=== PATIENT | female | born 1955 | race Caucasian/White ===

== ENCOUNTER → 2017-08-11 | Outpatient (CLI) | payer BC ==
[~2017-08-11] MED LIST: ACET-1256 PO; ASPI81TA28 PO; CALC500C3 PO; LEVO100T48 PO; METO50TA16 PO; [UNRECOGNIZED DRUG - OTHER] PO
--- NOTE | 2017-08-12 15:09 | MAMMOGRAPHY REPORT ---
BILATERAL DIGITAL SCREENING MAMMOGRAM TOMOSYNTHESIS WITH CAD: 08/11/2017 CLINICAL HISTORY: Routine screening. Patient has no complaints. TECHNIQUE: Breast tomosynthesis in addition to standard 2D mammography was performed. Current study was also evaluated with a Computer Aided Detection (CAD) system. COMPARISON: Comparison is made to exams dated: 08/05/2016 mammogram, 07/31/2015 mammogram, 4 mammogram, 07/26/2013 mammogram, 07/20/2012 mammogram, and 07/15/2011 mammogram - [facility]. BREAST COMPOSITION: The tissue of both breasts is almost entirely fatty. FINDINGS: No suspicious mass, architectural distortion or cluster of microcalcifications is seen. IMPRESSION: ACR BI-RADS CATEGORY 1: NEGATIVE There is no mammographic evidence of malignancy. A 1 year screening mammogram is recommended. The pa tient will receive written notification of the results. Approximately 10% of breast cancers are not detected with mammography. A negative mammographic report should not delay biopsy if a clinically suggestive mass is present. Larissa marsh/nini:08/11/2017 15:47:09 Cat Dog Or Other Pet Groomer: Adelita GIBBS,R, M, [facility] letter sent: Normal 1/2 BI-RADS Code: ACR BI-RADS Category 1: Negative
== END | disposition home or self-care (01) ==
LOC: C.MAMM 09:37
PROVIDERS: ATTEND Obstetrics & Gynecology
DX: Z12.31 Encounter for screening mammogram for malignant neoplasm of breast (principal)

== ENCOUNTER 2017-09-16 23:40 | Emergency (ER) | payer BC ==
[~2017-09-16] VITALS: Ht 175.3 cm; Wt 97.3 kg
[2017-09-16 23:42] VITALS: TEMP 37.6; Ht 175.3 cm; Wt 97.3 kg
[2017-09-16] MEDS ORDERED: ACETAMINOPHEN 500 MG TAB PO STA (23:58)
--- NOTE | 2017-09-17 | EMERGENCY ROOM VISIT NOTE ---
History Report prepared by Dimitris: Herrera Garcia Under the Supervision of: Dr. Jhonathan Brice M.D. First contact with patient: 23:51 Chief Complaint: FLU LIKE SX Stated Complaint: FLU History of Present Illness The patient is a 61 year old female who presents to the Emergency Room with complaints of a worsening illness that started a couple weeks ago. She states that she has had a productive cough for a couple weeks, and today started having generalized achiness, fevers, chills, and a runny nose. The patient notes that she feels that her ears are blocked up. She states that she finished a Z-pack a few days ago. The patient adds that she took 500 mg Tylenol around an hour ago. She denies any loss of consciousness. The patient says that she has no history of lung disease, and she is a non-smoker. She states that she had a heart attack 5 years ago, and is on Metoprolol. The patient notes a family history of diabetes, but no personal history. The patient says that her currently has similar symptoms. Source of History: patient Onset: A couple weeks ago Position: other (global - illness) Quality: other ( sick as well) Timing: worsening Associated Symptoms: + fevers, + chills, + cough (productive), No LOC Note: Associated symptoms: Generalized achiness, runny nose. Ears blocked up. Review of Systems See HPI for pertinent positives & negatives. A total of 10 systems reviewed and were otherwise negative. Past Medical & Surgical Medical Problems: (1) Allergic rhinitis (2) Dyslipidemia (3) status post cardiac catheterization (4) status post colonoscopy (5) status post hysterectomy Family History Diabetes mellitus Social History Smoking Status: Never Smoker Alcohol Use: none Marital Status: Occupation Status: employed Current/Historical Medications Scheduled Aspirin (Aspirin Ec), 81 MG PO DAILY Calcium Carbonate (Tums), 1 CHW PO PRN Levothyroxine Sodium (Synthroid), 112 MCG PO DAILY Metoprolol Tartrate (Lopressor) (Lopressor), 50 MG PO BID Oseltamivir (Tamiflu), 75 MG PO BID Scheduled PRN Acetaminophen (Tylenol), 1,000 MG PO Q8 PRN for Pain Allergies Coded Allergies: Clindamycin (Verified Allergy, Intermediate, rash, 09/17/17) gmg Physical Exam Vital Signs Date Time Temp Pulse Resp B/P (MAP) Pulse Ox O2 Delivery O2 Flow Rate FiO2 09/17/17 01:11 91 14 96 09/17/17 01:00 137/78 09/17/17 01:00 89 09/17/17 00:51 88 20 92 09/17/17 00:36 87 21 91 09/17/17 00:34 Nasal Cannula 2.0 09/17/17 00:33 95 Nasal Cannula 2.0 09/17/17 00:31 124/63 09/17/17 00:30 88 Room Air 09/17/17 00:25 94 17 95 09/17/17 00:10 96 09/17/17 00:10 94 21 91 Room Air 09/17/17 00:03 133/66 09/16/17 23:42 37.6 94 20 131/69 94 Room Air Physical Exam GENERAL: Patient is well appearing and in minimal distress. HEENT: No acute trauma, normocephalic atraumatic, mucous membranes moist, no scleral icterus. Rhinorrhea bilaterally. NECK: No stridor, no adenopathy, no meningismus, trachea is midline. LUNGS: Oxygen saturation after walking alba was 97% on room air. No dyspnea. Clear to auscultation and equal bilaterally. No wheeze, no rhonchi. HEART: Regular rate and rhythm. No murmurs, rubs, gallops appreciated. ABDOMEN: Soft, nontender, bowel sounds positive, no masses appreciated, no peritonitis. BACK: No midline tenderness, no CVA tenderness EXTREMITIES: Normal motion all extremities, no cyanosis, no edema. NEUROLOGIC: Alert and oriented, no acute motor or sensory deficits, no focal weakness, cranial nerves grossly intact. SKIN: No rash, no jaundice, no diaphoresis. Medical Decision & Procedures ER Provider Diagnostic Interpretation: X ray results are stated below per my interpretation: Chest: 1 view: No infiltrate, no effusion, normal cardiac border. Laboratory Results Test 09/17/17 00:00 Influenza Type A Antigen POS for Influ A (NEG) Influenza Type B Antigen Neg for Influ B (NEG) Laboratory results as reviewed by me. Medications Administered Medications (Trade) Dose Ordered Sig/Adalberto Route Start Time Stop Time Status Last Admin Dose Admin Acetaminophen (Tylenol Tab) 500 mg NOW STAT PO 09/16/17 23:58 09/16/17 23:59 DC 09/17/17 00:05 500 MG Oseltamivir Phosphate (Tamiflu Cap) 75 mg NOW STAT PO 09/17/17 01:05 09/17/17 01:06 DC 09/17/17 01:15 75 MG ED Course 2351: The patient was evaluated in room B12A. A complete history and physical exam was performed. 0017: I reevaluated the patient and she says that she did not have her flu shot this season. She notes that 3 weeks ago she had a cough and cold which seemed to linger some but is acutely worse now. 0052: I reevaluated and updated the patient. 0105: I reevaluated the patient and had a long chat with the patient regarding monitoring in the hospital versus going home, and the patient would like to go home. Family at bedside will drive the patient home. The patient will be discharged. Medical Decision Differential: Viral, Pharyngitis, Cellulitis, Pneumonia, Influenza, Sepsis, Bacteremia, amongst other pathologies entertained. 61 yr old female with symptoms consistent with flu that were confirmed by nasal testing. She has mildly low o2 sats but remaining >88% even with walking. Reviewed with her pros/cons of monitoring in hospital vs at home and she wishes to see how she does at home. Otherwise looks good and cxr clear. She, and family are OK with this plan. Aware she can return at any time for further evaluation. Advised f/u with PCP. Medication Reconcilliation Current Medication List: was personally reviewed by me Blood Pressure Screening Patient's blood pressure: Normal blood pressure Impression Primary Impression: Influenza A Scribe Attestation The scribe's documentation has been prepared under my direction and personally reviewed by me in its entirety. I confirm that the note above accurately reflects all work, treatment, procedures, and medical decision making performed by me. Departure Information Dispostion Home / Self-Care Prescriptions Oseltamivir (Tamiflu) 75 Mg Cap 75 MG PO BID, #10 CAP Prov: Jhonathan Brice M.D. 09/17/17 Referrals Sam Carlos M.D. (PCP) Patient Instructions ED Flu, My [facility] Additional Instructions It is important you follow up with your primary provider in the next 24-48 hours for repeat evaluation. If at any time you feel your are worsening or have other emergent concerns, return or call 911.
[2017-09-17] MEDS ORDERED: LEVO112T2 PO (00:13)
[2017-09-17 00:41] LABS: INFLUENZA B ANTIGEN Neg for Influ B (NEG)
[2017-09-17 01:00] VITALS: BP 137/78
[2017-09-17] MEDS ORDERED: OSELTAMIVIR PHOSPHATE 75 MG CAP PO STA (01:05)
[2017-09-17] MEDS ORDERED: OSEL75CA12 PO (01:10)
[2017-09-17 01:11] VITALS: PULSE 91; O2SAT 96
--- NOTE | 2017-09-17 07:07 | DIAGNOSTIC IMAGING REPORT ---
SINGLE VIEW CHEST CLINICAL HISTORY: Cough and fever. FINDINGS: An AP, portable, upright chest radiograph is compared to study dated 09/02/2012. The examination is degraded by portable technique and patient rotation. The heart is top normal for projection. The mediastinal contour is within normal limits. Chronic interstitial thickening is similar to previous. No airspace consolidation or large pleural effusion is identified. No pneumothorax is seen. The skeletal structures are osteopenic. The bony thorax is grossly intact. IMPRESSION: No acute cardiopulmonary abnormality. Electronically signed by: Boris Palacios M.D. 09/17/2017 7:06 AM Dictated Date/Time: 09/17/2017 7:05 AM
== END 2017-09-17 01:26 | disposition home or self-care (01) ==
LOC: C.EDB 23:43
DX: J11.1 Influenza due to unidentified influenza virus with other respiratory manifestations (principal); I25.2 Old myocardial infarction; Z83.3 Family history of diabetes mellitus; Z90.710 Acquired absence of both cervix and uterus; Z98.890 Other specified postprocedural states; Z79.82 Long term (current) use of aspirin; Z79.899 Other long term (current) drug therapy

== ENCOUNTER 2021-08-08 18:33 | Inpatient (IN) ==
[2021-08-08] MEDS ORDERED: ONDANSETRON INJ 2 MG/ML 2 ML VIAL IV STA (18:42)
--- NOTE | 2021-08-08 18:47 | Emergency Department Note ---
History of Present Illness General Chief complaint: Illness Stated complaint: Illness Time Seen by Provider: 08/08/21 18:35 Source: patient Mode of arrival: EMS History of Present Illness Provider complaint: Vomiting and diarrhea Onset (ago): day(s) Location: abdomen Pain Consistency: + intermittent Quality: + other (Loose diarrhea without blood. Vomited once yesterday and nauseous today) Relieved By: + none Associated symptoms: + cough, + fever/chills, + malaise, + nausea/vomiting and + shortness of breath; no chest pain This is a 65-year-old female who was diagnosed with COVID-19 yesterday presenting with vomiting and diarrhea starting last night. She states the diarrhea is loose and watery without blood. She states that she vomited a little bit of phlegm yesterday but has been nauseous today but has not vomited. She complains of some slight upper abdominal pain in the epigastric region after vomiting. She states that she feels a little short of breath today. She denies any chest pain or discomfort. She has had fevers, fatigue and myalgias. He has been sick for about 7 days. She is not vaccinated for COVID-19. She denies any urinary symptoms but states that she is not going as much as usual. She has had no leg swelling or pain. Home Medications Medication Instructions Recorded Confirmed Type Cbd Oil 8 drp PO BID 08/08/21 08/08/21 History aspirin 81 mg tablet,delayed 81 mg PO QAM 08/08/21 08/08/21 History release levothyroxine 112 mcg tablet 112 mcg PO QAM 08/08/21 08/08/21 History metoprolol tartrate 50 mg tablet 50 mg PO BID 08/08/21 08/08/21 History Allergies Allergy/AdvReac Type Severity Reaction Status Date / Time clindamycin Allergy Intermediate rash Verified 08/08/21 19:19 Past Med/Surg History Medical History Acute myocardial infarction Dyslipidemia Gastroesophageal reflux disease Hypertension Social History Smoking Status: Never smoker Preferred Language: Citizen Of [place] Feels Safe at Home: Yes Review of Systems See HPI for pertinent positives & negatives. and A total of 10 systems reviewed and were otherwise negative Physical Exam Vital Signs Vital Signs - 24 hr 08/08/21 18:51 08/08/21 18:59 08/08/21 19:00 Temperature 37.7 C H Temperature Source Oral Pulse Rate 90 92 H 87 Pulse Rate from SpO2 Sensor 88 87 Respiratory Rate 19 22 15 Respiratory Depth Normal Blood Pressure 146/83 H Blood Pressure Mean 104 Blood Pressure Position Lying Pulse Oximetry 92 94 91 Oxygen Delivery Method Nasal Cannula Oxygen Flow Rate 2 Sepsis Recent Fever Within 48 Hours Yes Sepsis New/Unexplained Change in Mental Status No Sepsis Action Taken by Nursing No Action Required 08/08/21 19:30 08/08/21 20:00 08/08/21 20:30 Temperature Temperature Source Pulse Rate 90 90 91 H Pulse Rate from SpO2 Sensor 88 91 H 90 Respiratory Rate 18 28 H 22 Respiratory Depth Blood Pressure Blood Pressure Mean Blood Pressure Position Pulse Oximetry 92 92 92 Oxygen Delivery Method Oxygen Flow Rate Sepsis Recent Fever Within 48 Hours Sepsis New/Unexplained Change in Mental Status Sepsis Action Taken by Nursing 08/08/21 21:00 08/08/21 21:30 Temperature Temperature Source Pulse Rate 96 H 95 H Pulse Rate from SpO2 Sensor 96 H 90 Respiratory Rate 24 26 H Respiratory Depth Blood Pressure 162/83 H 159/75 H Blood Pressure Mean 109 103 Blood Pressure Position Pulse Oximetry 92 91 Oxygen Delivery Method Oxygen Flow Rate 3 Sepsis Recent Fever Within 48 Hours Sepsis New/Unexplained Change in Mental Status Sepsis Action Taken by Nursing Constitutional: Vital signs reviewed. Eyes: Pupils are equal round reactive to light. Conjunctiva are noninjected. ENT: Pharynx is clear without erythema or exudate. Mucous membranes are dry. Neck supple without meningeal signs. Respiratory: Clear to auscultation bilaterally. Breath sounds are equal bilaterally. Cardiovascular: Regular rate and rhythm. No rubs or gallops. GI: Soft, nondistended and nontender. Bowel sounds are present. Musculoskeletal: No peripheral edema. No lower extremity tenderness. Integumentary: No cyanosis. or jaundice. Neurological: The patient is awake and alert. No focal deficits. Psychiatric: Normal affect. Not anxious appearing. Course Administered Medications Sodium Chloride (Nss) 500 mls @ 125 mls/hr IV .Q4H ROD Stop: 09/07/21 18:44 Last Admin: 08/08/21 19:08 Dose: 125 mls/hr Documented by: [id number] Discontinued Medications Dexamethasone Sodium Phosphate (DexamethasonePf 10 Mg/Ml Vial) 6 mg IV NOW ONE Stop: 08/08/21 19:02 Last Admin: 08/08/21 19:08 Dose: 6 mg Documented by: [id number] Ondansetron HCl (Ondansetron Inj 2 Mg/Ml 2 Ml Vial) 4 mg IV NOW STA Stop: 08/08/21 18:43 Last Admin: 08/08/21 19:08 Dose: 4 mg Documented by: [id number] Medical Decision Making Differential Diagnosis COVID-19, hypoxemia, pneumonia, anemia, dehydration, gastritis Medical Records Attestation: I reviewed the patient's medical records. I did perform a limited focused review of portions of the patient's old chart on the electronic medical record. The patient was seen here yesterday for flulike symptoms and diagnosed with COVID-19. She had a negative influenza test. Home Medications Current Medication List: was personally reviewed by me Laboratory Data Attestation: I reviewed the patient's lab results. Result diagrams: 08/08/21 18:47 08/08/21 18:47 Lab Results 08/08/21 08/08/21 Range/Units 18:47 18:47 WBC 4.02 L (4.8-10.8) K/uL RBC 4.58 (4.2-5.4) M/uL Hgb 14.2 (12.0-16.0) g/dL Hct 41.8 (37-47) % MCV 91.3 (80-100) fL MCH 31.0 (25-34) pg MCHC 34.0 (32-36) g/dL RDW Std Deviation 44.9 (36.4-46.3) fL RDW Coeff of Jelly 13.4 (11.5-14.5) % Plt Count 123 L (130-400) K/uL MPV 10.7 H (7.4-10.4) fL Immature Gran % (Auto) 0.2 % Neut % (Auto) 82.7 % Lymph % (Auto) 15.9 % [place] % (Auto) 1.0 % Eos % (Auto) 0.0 % Baso % (Auto) 0.2 % Neut # (Auto) 3.32 (1.4-6.5) K/uL Lymph # (Auto) 0.64 L (1.2-3.4) K/uL [place] # (Auto) 0.04 L (0.11-0.59) K/uL Eos # (Auto) 0.00 (0-0.5) K/uL Baso # (Auto) 0.01 (0-0.2) K/uL Immature Gran # (Auto) 0.01 (0.00-0.02) K/uL Sodium 131 L (136-145) mmol/L Potassium 3.6 (3.5-5.1) mmol/L Chloride 97 L (98-107) mmol/L Carbon Dioxide 24 (21-32) mmol/L Anion Gap 10.0 (3-11) BUN 11 (7-18) mg/dl Creatinine 0.93 (0.6-1.2) mg/dl Est Cr Clr Drug Dosing 79.7 ml/min Est GFR ( Amer) 74.7 ml/min Est GFR (Non-Af Amer) 64.5 ml/min BUN/Creatinine Ratio 12.0 (10-20) Glucose 98 (70-99) mg/dl Calcium 8.2 L (8.5-10.1) mg/dl Total Bilirubin 0.4 (0.2-1) mg/dl AST 50 H (15-37) U/L ALT 39 (12-78) U/L Alkaline Phosphatase 81 (45-117) U/L Troponin I < 0.015 (0-0.045) ng/ml C-Reactive Protein 8.38 H (0-0.29) mg/dl Total Protein 7.1 (6.4-8.2) gm/dl Albumin 2.7 L (3.4-5.0) gm/dl Globulin 4.4 H (2.5-4.0) gm/dl Albumin/Globulin Ratio 0.6 L (0.9-2) Imaging Data Radiologist's Impression: Chest X-Ray 08/08/21 18:42 XR chest 1V portable HISTORY: Dyspnea COMPARISON: Chest 09/17/2017. FINDINGS: There are patchy multifocal bilateral airspace opacities. This likely represents a viral pn[place]. The heart remains mildly enlarged. No pleural effusions. No pneumothorax. IMPRESSION: Patchy multifocal airspace opacities likely representing a viral pneumonia. ACT 112: Negative or not required by law. Electronically signed by: Lucian Pichardo M.D. 08/08/2021 8:27 PM ECG Data Attestation: I personally reviewed and interpreted this ECG as follows: Indication: + SOB/dyspnea Rate (beats per minute): 89 Rhythm: + normal sinus ECG [place]: + Left axis deviation ECG Findings: + LVH; no PVCs MDM Narrative I did evaluate the patient as noted above. The patient was diagnosed with COVID- 19 yesterday. She is presenting today with vomiting and diarrhea with shortness of breath. Her O2 saturation is 88% on room air. She was placed on supplemental oxygen via nasal cannula and her O2 saturation went up to 93%. IV access was established. I did treat the patient with normal saline IV as well as Zofran IV. She was also given Decadron [address] I did place an order for continuous cardiac monitoring. The monitor showed normal sinus rhythm at a rate of 95 bpm.I did order and personally review the patient's 12-lead EKG as described above. She has no acute ischemic changes. I did order and personally reviewed the images of the patient's chest x-ray as described above. She has multifocal pneumonia consistent with COVID-19. I did order and review the patient's blood work as noted in the electronic medical record. Her white count is 4.02. Platelet count is 123. Hemoglobin is 14.2. Electrolytes demonstrate a mild hyponatremia at 131 with a chloride of 97. AST slightly elevated at 50. C-reactive protein is 8.38. Troponin is negative. I did discuss the case with the hospitalist and porter sample case. She will be admitted for further care and evaluation. Impression & Plan Hypoxia, Multifocal pneumonia, Pneumonia due to 2019 novel coronavirus, Acute dehydration, Acute hyponatremia, Thrombocytopenia Discharge Plan Visit Data Chief Complaint: Illness Stated Complaint: Illness ED Provider: Hans Mistry Discharge Problem: Hypoxia, Multifocal pneumonia, Pneumonia due to 2019 novel coronavirus, Acute dehydration, Acute hyponatremia, Thrombocytopenia Patient Disposition: Being Evaluated by Hospitalist Forms Stand Alone Forms: My [facility] [employer] Prescriptions Prescriptions: No Action aspirin 81 mg Tablet,Delayed Release (Dr/Ec) 81 mg PO QAM RF: 0 metoprolol tartrate 50 mg tablet 50 mg PO BID RF: 0 levothyroxine 112 mcg tablet 112 mcg PO QAM RF: 0 Cbd Oil 8 drp PO BID RF: 0 Referrals Referrals: Chaparro Foster DO [Primary Care Provider] -
[2021-08-08 18:58] LABS: Basophils # (auto) 0.01 K/uL (0-0.2); Basophils % (auto) 0.2 %; Hematocrit (blood only) 41.8 % (37-47); Hemoglobin 14.2 g/dL (12.0-16.0); Immature Granulocytes # (auto) 0.01 K/uL (0.00-0.02); Immature Granulocytes % (auto) 0.2 %; Lymphocytes # (auto) 0.64 K/uL (1.2-3.4); Lymphocytes % (auto) 15.9 %; Mean Corpuscular Volume 91.3 fL (80-100); Mean Platelet Volume 10.7 fL (7.4-10.4); Monocytes # (auto) 0.04 K/uL (0.11-0.59); Neutrophils # (auto) 3.32 K/uL (1.4-6.5); Neutrophils % (auto) 82.7 %; Platelet Count 123 K/uL (130-400); RDW Coefficient of Variation 13.4 % (11.5-14.5); RDW Standard Deviation 44.9 fL (36.4-46.3); Red Blood Count 4.58 M/uL (4.2-5.4); White Blood Count 4.02 K/uL (4.8-10.8)
[2021-08-08] MEDS ORDERED: dexAMETHasone**PF** 10 MG/ML VIAL IV ONE (19:01)
[2021-08-08] MEDS: SODIUM CHLORIDE 0.9% 500 ML IV SCH (19:08)
[2021-08-08 19:15] LABS: Albumin Level 2.7 gm/dl (3.4-5.0); Blood Urea Nitrogen 11 mg/dl (7-18); Calcium 8.2 mg/dl (8.5-10.1); Carbon Dioxide 24 mmol/L (21-32); Chloride 97 mmol/L (98-107); Glucose 98 mg/dl (70-99); Potassium 3.6 mmol/L (3.5-5.1); Sodium 131 mmol/L (136-145)
[2021-08-08 19:17] LABS: Alanine Aminotransferase 39 U/L (12-78); Aspartate Aminotransferase 50 U/L (15-37); Creatinine Clr Calc Pharmacy 79.7 ml/min; Est GFR (African American) 74.7 ml/min; Est GFR (Non-African American) 64.5 ml/min
[2021-08-08 19:21] LABS: Albumin Globulin Ratio 0.6 (0.9-2); Alkaline Phosphatase 81 U/L (45-117); Bilirubin,Total 0.4 mg/dl (0.2-1); C Reactive Protein 8.38 mg/dl (0-0.29); Globulin 4.4 gm/dl (2.5-4.0); Total Protein 7.1 gm/dl (6.4-8.2); Troponin I < 0.015 ng/ml (0-0.045)
--- NOTE | 2021-08-08 20:29 | XRay Report ---
XR chest 1V portable HISTORY: Dyspnea COMPARISON: Chest 09/17/2017. FINDINGS: There are patchy multifocal bilateral airspace opacities. This likely represents a viral pn [place]. The heart remains mildly enlarged. No pleural effusions. No pneumothorax. IMPRESSION: Patchy multifocal airspace opacities likely representing a viral pneumonia. ACT 112: Negative or not required by law. Electronically signed by: Lucian Pichardo M.D. 08/08/2021 8:27 PM
--- NOTE | 2021-08-08 23:55 | History and Physical Report ---
DATE OF ADMISSION: 08/08/2021. CHIEF COMPLAINT: Ongoing illness with COVID. HISTORY OF PRESENT ILLNESS: This is a 65-year-old female with past medical history significant for hypothyroidism, hyperlipidemia, prediabetes, chronic sinusitis, history of transient left ventricular apical ballooning syndrome, history of [place], reflux esophagitis, chronic kidney disease stage III, osteoarthrosis, obesity, who lives with her and son, who comes with ongoing illness with COVID. She has symptoms since 1 week. She was in the ER yesterday and diagnosed with COVID and was discharged. The patient says her symptoms got worse and came here and she was saturating at 88% on room air and on 2 liters she was saturating okay. She is saying she is having a lot of body aches, headaches, nauseous, poor appetite, diarrhea, abdominal pain, and cough with shortness of breath. Denies any chest pain. Not micturating much. No swelling in the legs. Vision is somewhat blurred and she feels some noise going in her head. Currently, has mild temperature spike and requiring oxygen in the ER. ALLERGIES: CLINDAMYCIN AND AMOXICILLIN. PAST MEDICAL HISTORY: As mentioned above. PAST SURGICAL HISTORY: Colonoscopy, vaginal hysterectomy. MEDICATIONS: The patient is on aspirin 81 mg p.o. daily, levothyroxine 112 mcg p.o. daily, metoprolol tartrate 50 mg p.o. b.i.d. FAMILY HISTORY: Significant for mother had colon cancer, diabetes; stroke; father had hyperlipidemia, hypertension, pacemaker; brother, sleep apnea; sister has cervical cancer; aunt has diabetes. SOCIAL HISTORY: , no smoking, no alcohol, no drug use. REVIEW OF SYSTEMS: As per HPI. Rest of the review of systems is negative. PHYSICAL EXAMINATION: GENERAL: The patient is obese, not in acute distress. VITAL SIGNS: Temperature 37.7, pulse 95, respiratory rate in 20s, blood pressure 162/83, oxygen 94% on nasal cannula. HEENT: Pupils equal, round and reactive to light. Oral mucosa moist. NECK: No JVD, no neck masses. CARDIOVASCULAR: S1 and S2 heard. Tachycardia. No murmurs. RESPIRATORY SYSTEM: Normal AP diameter. No accessory muscle use. No wheezing, no crackles. ABDOMEN: Soft, bowel sounds present, nontender, no distention. CENTRAL NERVOUS SYSTEM: Cranial nerves II-XII grossly intact, nonfocal. EXTREMITIES: No edema, no erythema. LABORATORY DATA: WBC 4, hemoglobin 14.2, hematocrit 41.8, platelets 123. Sodium 131, potassium 3.6, chloride 97, bicarbonate 24, BUN 11, creatinine 0.9, serum glucose 98, calcium 8.2, total bilirubin 0.4, AST 50, ALT 39, alkaline phosphatase 81, troponin I less than 0.015. C-reactive protein 8.38. IMAGING DATA: Chest x-ray: Patchy multifocal airspace opacities, likely representing viral pneumonia. EKG: Sinus rhythm with occasional PVCs at the rate of 89, left axis deviation. ASSESSMENT AND PLAN: This 65-year-old female presents with COVID pneumonia. 1. COVID pneumonia: Hypoxia requiring 2 liters of oxygen. The patient was dosed with Decadron in the ER, will continue with the Decadron. The patient is refusing remdesivir. The patient has been not vaccinated. Supportive care with oxygenation and Decadron and follow the labs and monitor in the med tele. 2. History of hypothyroidism: Continue Synthroid. 3. History of hypertension: Continue metoprolol. Monitor the blood pressure. 4. History of myocardial infarction: On aspirin and beta lito. 5. History of prediabetes: Will monitor the blood sugars while the patient is getting steroids. 6. History of chronic kidney disease stage III: Currently creatinine of 0.9. Will follow the labs. 7. Hyponatremia: Sodium of 131. Follow the labs. Continue with gentle fluids for 1 liter. 8. Thrombocytopenia: Most likely secondary to COVID. Will follow the repeat labs. 9. Deep venous thrombosis prophylaxis: Placed on Lovenox. Monitor the platelets. DISPOSITION: Closely monitor in [employer] tele. PT/OT prior to discharge. Social service to help with discharge planning. Job ID: [id number] [facility]
[2021-08-09] MEDS ORDERED: SODIUM CHLORIDE 0.9% 1000ML 1,000 ML IV SCH (00:07)
[2021-08-09] MEDS ORDERED: ONDANSETRON INJ 2 MG/ML 2 ML VIAL IV PRN (00:07)
[2021-08-09] MEDS ORDERED: NITROGLYCERIN SL 0.4 MG/TAB TAB SL PRN (00:07)
[2021-08-09] MEDS ORDERED: CARBOHYDRATES FOR HYPOGLYCEMIA PO PRN (00:30)
[2021-08-09] MEDS ORDERED: GLUCAGON FOR INJ 1 MG VIAL IM PRN (00:30)
[2021-08-09] MEDS ORDERED: GLUCOSE 10 TABS/TUBE PO PRN (00:30)
[2021-08-09] MEDS ORDERED: DEXTROSE 50% 50 ML SYRINGE IV PRN (00:30)
[2021-08-09] MEDS ORDERED: GLUCOSE 40% GEL 15 GM TUBE PO PRN (00:30)
[2021-08-09] MEDS: ENOXAPARIN INJ 40 MG/0.4 ML SYR SQ SCH ×2 (02:18→11:10)
[2021-08-09] MEDS: SODIUM CHLORIDE 0.9% 500 ML IV SCH (04:11)
[2021-08-09] MEDS: LEVOTHYROXINE SODIUM 112 MCG TABLET PO SCH (06:11)
[2021-08-09] MEDS: ACETAMINOPHEN 325 MG TAB PO PRN ×3 (06:21→21:51)
[2021-08-09 07:07] LABS: Appearance Urine Clear (Clear); Bacteria Urine Automated Negative (Negative); Bilirubin Urine Negative (Negative); Blood Urine 2+ (Negative); Color Urine Yellow; Glucose Urine UA Negative (Negative); Ketones Urine 2+ (Negative); Leukocyte Esterase Urine Negative (Negative); Nitrite Urine Negative (Negative); Protein Urine 1+ (Negative); Specific Gravity Urine 1.011 (1.000-1.030); Urobilinogen Urine Negative (Negative)
[2021-08-09 07:24] LABS: Hematocrit (blood only) 38.1 % (37-47); Immature Granulocytes # (auto) 0.01 K/uL (0.00-0.02); Immature Granulocytes % (auto) 0.3 %; Lymphocytes % (auto) 14.8 %; Mean Corpuscular Hgb Conc 34.1 g/dL (32-36); Mean Corpuscular Volume 90.7 fL (80-100); Mean Platelet Volume 10.4 fL (7.4-10.4); Monocytes # (auto) 0.06 K/uL (0.11-0.59); Monocytes % (auto) 1.8 %; Neutrophils # (auto) 2.81 K/uL (1.4-6.5); Neutrophils % (auto) 83.1 %; Platelet Count 143 K/uL (130-400); RDW Coefficient of Variation 13.6 % (11.5-14.5); RDW Standard Deviation 45.5 fL (36.4-46.3); White Blood Count 3.38 K/uL (4.8-10.8)
[2021-08-09 07:53] LABS: C Reactive Protein 7.91 mg/dl (0-0.29); Calcium 7.8 mg/dl (8.5-10.1); Creatinine Clr Calc Pharmacy 96.2 ml/min; Est GFR (African American) 93.9 ml/min; Magnesium 1.9 mg/dl (1.8-2.4); Potassium 3.8 mmol/L (3.5-5.1)
[2021-08-09] MEDS: METOPROLOL TARTRATE 50 MG TAB PO SCH ×3 (08:17→21:50)
[2021-08-09] MEDS: INSULIN ASPART 100 UNITS/ML 3 ML PEN SC SCH ×4 (09:09→22:57)
[2021-08-09] MEDS: dexAMETHasone 6 MG in SYRINGE 0 ML IV SCH (09:23)
--- NOTE | 2021-08-09 12:25 | Electrocardiogram Report ---
Test Reason : Blood Pressure : / mmHG Vent. Rate : 089 BPM Atrial Rate : 089 BPM P-R Int : 150 ms QRS Dur : 104 ms QT Int : 376 ms P-R-T Axes : 048 -38 003 degrees QTc Int : 457 ms Poor data quality, interpretation may be adversely affected Sinus rhythm with occasional Premature ventricular complexes Left axis deviation Moderate voltage criteria for LVH, may be normal variant Abnormal ECG When compared with ECG of 17-SEP-2013 09:37, Premature ventricular complexes are now Present Confirmed by Jamaal Bledsoe ([id number]) on 08/09/2021 12:25:18 PM Referred By: REFERRED SELF Confirmed By:Magno Bledsoe
--- NOTE | 2021-08-09 15:39 | Hospitalist Progress Note ---
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 will be given 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 (2) Acute respiratory failure with hypoxia: Plan: Treatment as above (3) Acute hyponatremia: Plan: Noted to have sodium of 131 on admission Has been improving as of today to 134 (4) Acute dehydration: Plan: Creatinine remains stable (5) Thrombocytopenia: Plan: Platelet minimally decreased at 123 Improved to 143 as of today 08/09/2021 (6) Hypertension: Plan: Blood pressure remains stable Plan: DVT prophylaxis Subcu Lovenox CODE STATUS Full Admission and Anticipated Discharge Date Admission Date: August 08, 2021 Subjective 08/09/2021 The patient was seen and examined in emergency room in presence of the daughter She has been feeling a little better since admission Still complains to have cough and shortness of breath Review of Systems Review of Systems: All systems reviewed and are unremarkable except as noted below Respiratory: Mild to moderate shortness of breath at rest Physical Exam 2 Physical Exam: Lying in bed comfortably Constitutional: well developed, well nourished, + ill appearing and + obese Eyes: PERRL, conjunctivae normal, anicteric sclerae ENMT: external ear and nose normal, oropharynx normal Neck: trachea midline, no thyromegaly Respiratory: + respiratory distress and + cough Auscultation: + diminished lung sounds and + crackles (Occasional crackles at the bases) Cardiovascular: Rate/Rhythm: regular rate and regular rhythm; not tachycardic Heart Sounds: normal S1 and normal S2; no murmur Extremities: + edema (Trace edema bilaterally) Gastrointestinal (Abdomen): Inspection/Auscultation: normal bowel sounds; abdomen not distended Percussion/Palpation: abdomen soft; abdomen nontender Musculoskeletal: No acute arthritis in any joint Neurologic: Alert, awake and oriented x3. Generally weak Results & Data Results & Data ([facility]) Vital Signs (Past 12 Hours) Vital Signs Temp Pulse Pulse Resp BP BP Pulse Ox 08/09/21 15:28 84 08/09/21 14:00 36.9 C 84 16 116/71 93 08/09/21 12:23 36.8 C 74 20 146/70 H 93 08/09/21 12:00 90 17 08/09/21 11:35 77 18 08/09/21 11:00 77 23 89 L 08/09/21 10:30 83 21 90 08/09/21 10:00 80 16 129/68 89 L 08/09/21 09:30 85 21 88 L 08/09/21 09:00 89 20 08/09/21 08:30 93 H 21 08/09/21 08:00 97 H 23 08/09/21 07:30 116 H 15 85 L 08/09/21 07:00 101 H 24 92 08/09/21 06:30 102 H 23 92 08/09/21 06:00 105 H 25 H 91 08/09/21 05:30 108 H 18 90 08/09/21 05:00 107 H 29 H 89 L 08/09/21 04:30 96 H 18 94 08/09/21 04:00 102 H 23 138/69 92 Laboratory Results Short CBC 08/08/21 08/09/21 Range/Units 18:47 06:52 WBC 4.02 L 3.38 L (4.8-10.8) K/uL Hgb 14.2 13.0 (12.0-16.0) g/dL Hct 41.8 38.1 (37-47) % Plt Count 123 L 143 (130-400) K/uL BMP 08/08/21 08/09/21 18:47 06:52 Sodium 131 L 134 L Potassium 3.6 3.8 Chloride 97 L 103 Carbon Dioxide 24 22 BUN 11 9 Creatinine 0.93 0.77 Glucose 98 120 H Calcium 8.2 L 7.8 L Cardiac Enzymes 08/08/21 Range/Units 18:47 Troponin I < 0.015 (0-0.045) ng/ml Liver Function 08/08/21 Range/Units 18:47 Total Bilirubin 0.4 (0.2-1) mg/dl AST 50 H (15-37) U/L ALT 39 (12-78) U/L Alkaline Phosphatase 81 (45-117) U/L Albumin 2.7 L (3.4-5.0) gm/dl Urine 08/09/21 Range/Units Unknown Urine Color Yellow Urine Appearance Clear (Clear) Urine pH 6.0 (4.5-7.5) Ur Specific [place] 1.011 (1.000-1.030) Urine Protein 1+ H (Negative) Urine Glucose (UA) Negative (Negative) Medications Administered Current Inpatient Medications Acetaminophen (Acetaminophen 325 Mg Tab) 650 mg PO Q4H PRN PRN Reason: Pain or Fever Stop: 09/08/21 00:06 Last Admin: 08/09/21 15:05 Dose: 650 mg Documented by: Dextrose (Dextrose 50% 50 Ml Syringe) 25 - 50 ml IV UD PRN; Protocol PRN Reason: Hypoglycemia Protocol Stop: 09/08/21 00:29 Enoxaparin Sodium (Enoxaparin Inj 40 Mg/0.4 Ml Syr) 40 mg SQ Q12H ROD Stop: 09/08/21 00:00 Last Admin: 08/09/21 11:10 Dose: 40 mg Documented by: Glucagon (Glucagon For Inj 1 Mg Vial) 1 mg IM UD PRN; Protocol PRN Reason: Hypoglycemia Protocol Stop: 09/08/21 00:29 Glucose (Glucose 40% Gel 15 Gm Tube) 15 - 30 gm PO UD PRN; Protocol PRN Reason: Hypoglycemia Protocol Stop: 09/08/21 00:29 Glucose (Glucose 10 Tabs/Tube) 4 - 8 tabs PO UD PRN; Protocol PRN Reason: Hypoglycemia Protocol Stop: 09/08/21 00:29 Dexamethasone 6 mg/ Syringe 1.5 mls @ 1 mls/min IV Q24H ROD Stop: 09/08/21 08:59 Last Admin: 08/09/21 09:23 Dose: 1 mls/min Documented by: Insulin Aspart (Insulin Aspart 100 Units/Ml 3 Ml Pen) 0 units SC ACHS ROD Stop: 09/08/21 07:29 Last Admin: 08/09/21 11:09 Dose: Not Given Documented by: Levothyroxine Sodium (Levothyroxine Sodium 112 Mcg Tablet) 112 mcg PO DAILYBB ROD Stop: 09/08/21 06:29 Last Admin: 08/09/21 06:11 Dose: 112 mcg Documented by: Metoprolol Tartrate (Metoprolol Tartrate 50 Mg Tab) 50 mg PO BID ROD Stop: 09/08/21 08:59 Last Admin: 08/09/21 08:17 Dose: 50 mg Documented by: Miscellaneous (Carbohydrates For Hypoglycemia ) 15 - 30 gm PO UD PRN PRN Reason: Hypoglycemia Treatment Stop: 09/08/21 00:29 Nitroglycerin (Nitroglycerin Sl 0.4 Mg/Tab Tab) 0.4 mg SL UD PRN PRN Reason: Chest Pain Stop: 09/08/21 00:06 Ondansetron HCl (Ondansetron Inj 2 Mg/Ml 2 Ml Vial) 4 mg IV Q6H PRN PRN Reason: Nausea Stop: 09/08/21 00:06
[2021-08-09] MEDS ORDERED: HYDROcodone/HOMATROPINE SYRUP 5MG/1.5MG 5ML UDP PO PRN (15:52)
[2021-08-09] MEDS: FUROSEMIDE 40 MG/4 ML VIAL IV SCH (17:13)
[2021-08-09] MEDS: guaiFENesin 600 MG TABCR PO SCH (21:50)
[2021-08-10] MEDS: ENOXAPARIN INJ 40 MG/0.4 ML SYR SQ SCH ×2 (00:47→13:51)
[2021-08-10] MEDS: LEVOTHYROXINE SODIUM 112 MCG TABLET PO SCH (06:13)
[2021-08-10] MEDS: ACETAMINOPHEN 325 MG TAB PO PRN ×3 (06:23→20:01)
[2021-08-10 06:37] LABS: Estimated Average Glucose 131 mg/dl; Hemoglobin A1C 6.2 % (4.5-5.6)
[2021-08-10 08:31] LABS: Albumin Level 2.4 gm/dl (3.4-5.0); BUN Creatinine Ratio 17.6 (10-20); Calcium 8.1 mg/dl (8.5-10.1); Creatinine Clr Calc Pharmacy 76.5 ml/min; Est GFR (African American) 70.2 ml/min; Est GFR (Non-African American) 60.5 ml/min; Magnesium 1.9 mg/dl (1.8-2.4); Phosphorus 2.2 mg/dl (2.5-4.9); Potassium 3.9 mmol/L (3.5-5.1)
[2021-08-10 08:32] LABS: Albumin Globulin Ratio 0.6 (0.9-2); Bilirubin,Total 0.3 mg/dl (0.2-1); Globulin 4.1 gm/dl (2.5-4.0); Total Protein 6.5 gm/dl (6.4-8.2)
[2021-08-10] MEDS: INSULIN ASPART 100 UNITS/ML 3 ML PEN SC SCH ×3 (09:13→17:03)
[2021-08-10] MEDS: METOPROLOL TARTRATE 50 MG TAB PO SCH ×2 (09:13→21:31)
[2021-08-10] MEDS: FUROSEMIDE 40 MG/4 ML VIAL IV SCH (09:13)
[2021-08-10] MEDS: dexAMETHasone 6 MG in SYRINGE 0 ML IV SCH (09:13)
[2021-08-10] MEDS: guaiFENesin 600 MG TABCR PO SCH ×2 (09:13→21:31)
--- NOTE | 2021-08-10 16:32 | Hospitalist Progress Note ---
Date of Service August 10, 2021 Assessment & Plan (1) Pneumonia due to 2019 novel coronavirus: Plan: She is not being vaccinated She has been having symptoms for about 1 week and was diagnosed to have Covid positive in ER on 08/08/2021 and she was discharged Symptoms have been worse with desaturation and she is back Chest exercise history of viral pneumonia and CRP was elevated at 8.2 She has been refusing remdesivir but has been on dexamethasone We will give her cough medicine and supportive oxygen therapy Advised to have prone position and using spirometer and flutter valve Lasix will be given to 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 on the 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 (2) Acute respiratory failure with hypoxia: Plan: Treatment as above (3) Acute hyponatremia: Plan: Noted to have sodium of 131 on admission Has been improving as of today to 134 Normalized (4) Acute dehydration: Plan: Creatinine remains stable (5) Thrombocytopenia: Plan: Platelet minimally decreased at 123 Improved to 143 as of today 08/09/2021 (6) Hypertension: Plan: Blood pressure remains stable Plan: DVT prophylaxis Subcu Lovenox CODE STATUS Full Admission and Anticipated Discharge Date Admission Date: August 08, 2021 Subjective 08/09/2021 The patient was seen and examined in emergency room in presence of the daughter She has been feeling a little better since admission Still complains to have cough and shortness of breath 08/10/2021 The patient was seen and examined in medical telemetry unit and in the Covid room She has been feeling a little better but still requires 40 L 80% FiO2 to maintain saturation Has minimal cough and generalized weakness Review of Systems Review of Systems: All systems reviewed and are unremarkable except as noted below Respiratory: Mild to moderate shortness of breath at rest Physical Exam Physical Exam: Lying in bed with moderate distress due to shortness of breath and weakness Constitutional: well developed, well nourished, + ill appearing and + obese Eyes: PERRL, conjunctivae normal, anicteric sclerae ENMT: external ear and nose normal, oropharynx normal Neck: trachea midline, no thyromegaly Respiratory: + respiratory distress and + cough Auscultation: + diminished lung sounds and + crackles (Occasional crackles at the bases) Cardiovascular: Rate/Rhythm: regular rate and regular rhythm; not tachycardic Heart Sounds: normal S1 and normal S2; no murmur Extremities: + edema (Trace edema bilaterally) Gastrointestinal (Abdomen): Inspection/Auscultation: normal bowel sounds; abdomen not distended Percussion/Palpation: abdomen soft; abdomen nontender Musculoskeletal: No acute arthritis in any joint Neurologic: Alert, awake and oriented x3. Very weak and lethargic Results & Data Results & Data ([facility]) Vital Signs (Past 12 Hours) Vital Signs Temp Pulse Pulse Resp BP Pulse Ox 08/10/21 15:13 75 18 90 08/10/21 15:00 37.1 C 75 18 100/58 L 92 08/10/21 10:57 76 16 90 08/10/21 10:46 36.9 C 73 18 102/64 92 08/10/21 07:27 96 H 08/10/21 06:16 37.8 C H 96 H 18 124/72 90 08/10/21 06:04 79 16 95 Laboratory Results [facility] 08/10/21 07:08 Sodium 135 L Potassium 3.9 Chloride 101 Carbon Dioxide 25 BUN 17 D Creatinine 0.98 Glucose 107 H Calcium 8.1 L Liver Function 08/10/21 Range/Units 07:08 Total Bilirubin 0.3 (0.2-1) mg/dl AST 98 H (15-37) U/L ALT 64 (12-78) U/L Alkaline Phosphatase 73 (45-117) U/L Albumin 2.4 L (3.4-5.0) gm/dl Medications Administered Current Inpatient Medications Acetaminophen (Acetaminophen 325 Mg Tab) 650 mg PO Q4H PRN PRN Reason: Pain or Fever Stop: 09/08/21 00:06 Last Admin: 08/10/21 10:42 Dose: 650 mg Documented by: Dextrose (Dextrose 50% 50 Ml Syringe) 25 - 50 ml IV UD PRN; Protocol PRN Reason: Hypoglycemia Protocol Stop: 09/08/21 00:29 Enoxaparin Sodium (Enoxaparin Inj 40 Mg/0.4 Ml Syr) 40 mg SQ Q12H ROD Stop: 09/08/21 00:00 Last Admin: 08/10/21 13:51 Dose: 40 mg Documented by: Furosemide (Furosemide 40 Mg/4 Ml Vial) 40 mg IV DAILY ROD Stop: 09/08/21 15:59 Last Admin: 08/10/21 09:13 Dose: 40 mg Documented by: Glucagon (Glucagon For Inj 1 Mg Vial) 1 mg IM UD PRN; Protocol PRN Reason: Hypoglycemia Protocol Stop: 09/08/21 00:29 Glucose (Glucose 40% Gel 15 Gm Tube) 15 - 30 gm PO UD PRN; Protocol PRN Reason: Hypoglycemia Protocol Stop: 09/08/21 00:29 Glucose (Glucose 10 Tabs/Tube) 4 - 8 tabs PO UD PRN; Protocol PRN Reason: Hypoglycemia Protocol Stop: 09/08/21 00:29 Guaifenesin (Guaifenesin 600 Mg Tabcr) 1,200 mg PO Q12 ROD Stop: 09/08/21 20:59 Last Admin: 08/10/21 09:13 Dose: 1,200 mg Documented by: Hydrocodone Bit/Homatropine Methylb (Hydrocodone/Homatropine Syrup 5mg/1.5mg 5ml Udp) 5 ml PO Q6H PRN PRN Reason: Cough Stop: 08/23/21 15:51 Dexamethasone 6 mg/ Syringe 1.5 mls @ 1 mls/min IV Q24H ROD Stop: 09/08/21 08:59 Last Admin: 08/10/21 09:13 Dose: 1 mls/min Documented by: Insulin Aspart (Insulin Aspart 100 Units/Ml 3 Ml Pen) 0 units SC ACHS ROD Stop: 09/08/21 07:29 Last Admin: 08/10/21 12:50 Dose: Not Given Documented by: Levothyroxine Sodium (Levothyroxine Sodium 112 Mcg Tablet) 112 mcg PO DAILYBB [facility] Stop: 09/08/21 06:29 Last Admin: 08/10/21 06:13 Dose: 112 mcg Documented by: Metoprolol Tartrate (Metoprolol Tartrate 50 Mg Tab) 50 mg PO BID ROD Stop: 09/08/21 08:59 Last Admin: 08/10/21 09:13 Dose: 50 mg Documented by: Miscellaneous (Carbohydrates For Hypoglycemia ) 15 - 30 gm PO UD PRN PRN Reason: Hypoglycemia Treatment Stop: 09/08/21 00:29 Nitroglycerin (Nitroglycerin Sl 0.4 Mg/Tab Tab) 0.4 mg SL UD PRN PRN Reason: Chest Pain Stop: 09/08/21 00:06 Ondansetron HCl (Ondansetron Inj 2 Mg/Ml 2 Ml Vial) 4 mg IV Q6H PRN PRN Reason: Nausea Stop: 09/08/21 00:06 Last Admin: 08/09/21 22:44 Dose: 4 mg Documented by:
[2021-08-11] MEDS: ENOXAPARIN INJ 40 MG/0.4 ML SYR SQ SCH ×2 (00:35→10:44)
[2021-08-11] MEDS: LEVOTHYROXINE SODIUM 112 MCG TABLET PO SCH (04:32)
[2021-08-11] MEDS: ACETAMINOPHEN 325 MG TAB PO PRN ×3 (04:32→22:06)
[2021-08-11 06:44] LABS: Albumin Globulin Ratio 0.5 (0.9-2); Albumin Level 2.4 gm/dl (3.4-5.0); BUN Creatinine Ratio 22.7 (10-20); Bilirubin,Total 0.4 mg/dl (0.2-1); C Reactive Protein 8.05 mg/dl (0-0.29); Calcium 8.8 mg/dl (8.5-10.1); Creatinine Clr Calc Pharmacy 71.3 ml/min; Est GFR (African American) 64.5 ml/min; Est GFR (Non-African American) 55.7 ml/min; Globulin 4.4 gm/dl (2.5-4.0); Potassium 3.8 mmol/L (3.5-5.1); Total Protein 6.8 gm/dl (6.4-8.2)
[2021-08-11] MEDS: INSULIN ASPART 100 UNITS/ML 3 ML PEN SC SCH (07:09)
[2021-08-11] MEDS: METOPROLOL TARTRATE 50 MG TAB PO SCH ×2 (10:24→22:01)
[2021-08-11] MEDS: guaiFENesin 600 MG TABCR PO SCH ×2 (10:24→22:02)
[2021-08-11] MEDS: FUROSEMIDE 40 MG/4 ML VIAL IV SCH (10:24)
[2021-08-11] MEDS: dexAMETHasone 6 MG in SYRINGE 0 ML IV SCH (10:44)
--- NOTE | 2021-08-11 15:47 | Hospitalist Progress Note ---
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 Remains stable and complains to have weakness and tiredness-continue current management (2) Acute respiratory failure with hypoxia: Plan: Treatment as above (3) Acute hyponatremia: Plan: Noted to have sodium of 131 on admission Has been improving as of today to 134 Normalized (4) Acute dehydration: Plan: Creatinine remains stable (5) Thrombocytopenia: Plan: Platelet minimally decreased at 123 Improved to 143 as of today 08/09/2021 (6) Hypertension: Plan: Blood pressure remains stable Plan: DVT prophylaxis Subcu Lovenox CODE STATUS Full Admission and Anticipated Discharge Date Admission Date: August 08, 2021 Subjective 08/09/2021 The patient was seen and examined in emergency room in presence of the daughter She has been feeling a little better since admission Still complains to have cough and shortness of breath 08/10/2021 The patient was seen and examined in medical telemetry unit and in the Covid room She has been feeling a little better but still requires 40 L 80% FiO2 to maintain saturation Has minimal cough and generalized weakness 08/11/2021 The patient was seen and examined in medical telemetry unit and in the Covid room She remains stable and has been requiring high flow oxygen to maintain saturation She was asking for ivermectin and chloroquine-informed that is not yet FDA approved and I cannot prescribe those Review of Systems Review of Systems: All systems reviewed and are unremarkable except as noted below Respiratory: Mild to moderate shortness of breath at rest Physical Exam Physical Exam: Lying in bed with moderate distress due to shortness of breath and weakness Constitutional: well developed, well nourished, + ill appearing and + obese Eyes: PERRL, conjunctivae normal, anicteric sclerae ENMT: external ear and nose normal, oropharynx normal Neck: trachea midline, no thyromegaly Respiratory: + respiratory distress and + cough Auscultation: + diminished lung sounds and + crackles (Occasional crackles at the bases) Cardiovascular: Rate/Rhythm: regular rate and regular rhythm; not tachycardic Heart Sounds: normal S1 and normal S2; no murmur Extremities: + edema (Trace edema bilaterally) Gastrointestinal (Abdomen): Inspection/Auscultation: normal bowel sounds; abdomen not distended Percussion/Palpation: abdomen soft; abdomen nontender Musculoskeletal: No acute arthritis in any joint Neurologic: Alert, awake and oriented x3 Results & Data Results & Data ([facility]) Vital Signs (Past 12 Hours) Vital Signs Temp Pulse Pulse Resp BP Pulse Ox 08/11/21 15:34 79 24 81 L 08/11/21 11:26 79 20 88 L 08/11/21 08:15 84 22 91 08/11/21 08:12 36.9 C 84 21 113/71 84 L 08/11/21 06:32 75 08/11/21 04:25 36.8 C 82 18 110/69 88 L 08/11/21 03:45 78 24 90 Laboratory Results [facility] [place] 08/11/21 05:49 Sodium 135 L Potassium 3.8 Chloride 100 Carbon Dioxide 30 BUN 24 H Creatinine 1.05 Glucose 120 H Calcium 8.8 Liver Function 08/11/21 Range/Units 05:49 Total Bilirubin 0.4 (0.2-1) mg/dl AST 84 H (15-37) U/L ALT 67 (12-78) U/L Alkaline Phosphatase 72 (45-117) U/L Albumin 2.4 L (3.4-5.0) gm/dl Medications Administered Current Inpatient Medications Acetaminophen (Acetaminophen 325 Mg Tab) 650 mg PO Q4H PRN PRN Reason: Pain or Fever Stop: 09/08/21 00:06 Last Admin: 08/11/21 15:12 Dose: 650 mg Documented by: Dextrose (Dextrose 50% 50 Ml Syringe) 25 - 50 ml IV UD PRN; Protocol PRN Reason: Hypoglycemia Protocol Stop: 09/08/21 00:29 Enoxaparin Sodium (Enoxaparin Inj 40 Mg/0.4 Ml Syr) 40 mg SQ Q12H ROD Stop: 09/08/21 00:00 Last Admin: 08/11/21 10:44 Dose: 40 mg Documented by: Furosemide (Furosemide 40 Mg/4 Ml Vial) 40 mg IV DAILY ROD Stop: 09/08/21 15:59 Last Admin: 08/11/21 10:24 Dose: 40 mg Documented by: Glucagon (Glucagon For Inj 1 Mg Vial) 1 mg IM UD PRN; Protocol PRN Reason: Hypoglycemia Protocol Stop: 09/08/21 00:29 Glucose (Glucose 40% Gel 15 Gm Tube) 15 - 30 gm PO UD PRN; Protocol PRN Reason: Hypoglycemia Protocol Stop: 09/08/21 00:29 Glucose (Glucose 10 Tabs/Tube) 4 - 8 tabs PO UD PRN; Protocol PRN Reason: Hypoglycemia Protocol Stop: 09/08/21 00:29 Guaifenesin (Guaifenesin 600 Mg Tabcr) 1,200 mg PO Q12 ROD Stop: 09/08/21 20:59 Last Admin: 08/11/21 10:24 Dose: 1,200 mg Documented by: Hydrocodone Bit/Homatropine Methylb (Hydrocodone/Homatropine Syrup 5mg/1.5mg 5ml Udp) 5 ml PO Q6H PRN PRN Reason: Cough Stop: 08/23/21 15:51 Dexamethasone 6 mg/ Syringe 1.5 mls @ 1 mls/min IV Q24H ROD Stop: 09/08/21 08:59 Last Admin: 08/11/21 10:44 Dose: 1 mls/min Documented by: Levothyroxine Sodium (Levothyroxine Sodium 112 Mcg Tablet) 112 mcg PO DAILYBB ROD Stop: 09/08/21 06:29 Last Admin: 08/11/21 04:32 Dose: 112 mcg Documented by: Metoprolol Tartrate (Metoprolol Tartrate 50 Mg Tab) 50 mg PO BID ROD Stop: 09/08/21 08:59 Last Admin: 08/11/21 10:24 Dose: 50 mg Documented by: Miscellaneous (Carbohydrates For Hypoglycemia ) 15 - 30 gm PO UD PRN PRN Reason: Hypoglycemia Treatment Stop: 09/08/21 00:29 Nitroglycerin (Nitroglycerin Sl 0.4 Mg/Tab Tab) 0.4 mg SL UD PRN PRN Reason: Chest Pain Stop: 09/08/21 00:06 Ondansetron HCl (Ondansetron Inj 2 Mg/Ml 2 Ml Vial) 4 mg IV Q6H PRN PRN Reason: Nausea Stop: 09/08/21 00:06 Last Admin: 08/09/21 22:44 Dose: 4 mg Documented by:
[2021-08-12] MEDS: ENOXAPARIN INJ 40 MG/0.4 ML SYR SQ SCH ×2 (00:25→10:02)
[2021-08-12] MEDS ORDERED: LORazepam 0.5 MG TAB PO STA (03:13)
[2021-08-12] MEDS ORDERED: REMDESIVIR 200 MG in SODIUM CHLORIDE 0.9% 210 ML IV STA (04:04)
[2021-08-12] MEDS: ACETAMINOPHEN 325 MG TAB PO PRN ×3 (05:11→21:32)
[2021-08-12] MEDS: LEVOTHYROXINE SODIUM 112 MCG TABLET PO SCH (05:12)
[2021-08-12 05:49] LABS: Hematocrit (blood only) 41.4 % (37-47); Hemoglobin 13.6 g/dL (12.0-16.0); Mean Corpuscular Hemoglobin 30.4 pg (25-34); Mean Corpuscular Hgb Conc 32.9 g/dL (32-36); Mean Corpuscular Volume 92.6 fL (80-100); Platelet Count 217 K/uL (130-400); RDW Coefficient of Variation 13.9 % (11.5-14.5); RDW Standard Deviation 47.4 fL (36.4-46.3); Red Blood Count 4.47 M/uL (4.2-5.4); White Blood Count 4.71 K/uL (4.8-10.8)
[2021-08-12 06:15] LABS: Creatinine Clr Calc Pharmacy 71.9 ml/min; Est GFR (African American) 65.3 ml/min; Est GFR (Non-African American) 56.3 ml/min
[2021-08-12] MEDS: dexAMETHasone 6 MG in SYRINGE 0 ML IV SCH (09:46)
[2021-08-12] MEDS: FUROSEMIDE 40 MG/4 ML VIAL IV SCH (09:47)
[2021-08-12] MEDS ORDERED: OPTIRAY 320 125ml IV ONE (10:45)
[2021-08-12] MEDS: guaiFENesin 600 MG TABCR PO SCH ×2 (11:22→12:07)
--- NOTE | 2021-08-12 11:28 | CT Scan Report ---
CT angio chest PE protocol CLINICAL HISTORY: Covid pneumonia. Shortness of breath and chest pain. Evaluate for pulmonary embolus COMPARISON STUDY: Portable chest from 08/08/2021 CT DOSE: 554.46 mGycm TECHNIQUE: CT Angio of the chest was performed.followed by image post processing with coronal, and s agittal MIP reformats. Contrast Volume: Optiray 320, 120 ml FINDINGS: Vasculature: There is homogeneous perfusion of the pulmonary vasculature bilaterally. No intraluminal filling defects or evidence for pulmonary embolus is seen. Airway: The airway is clear. No endobronchial lesion is identified. Lungs: Extensive groundglass opacities are present throughout both lungs characteristic of a viral ty pe pneumonitis and Covid 19 pneumonia. The lungs are otherwise clear of confluent alveolar opacities, air bronchograms or pulmonary nodules. There is bibasilar atelectasis present. Pleura: There is no evidence for pleural effusion. There is no evidence for pneumothorax. Mediastinum: There is no evidence for pathologic adenopathy. The heart size is within normal limits. The thoracic aorta is within normal limits. There is no evidence for pericardial effusion. Upper abdomen:The adrenal glands are normal bilaterally. Osseous structures: There is no acute osseous pathology. Impression: 1. No CTA evidence for pulmonary embolus. 2. Extensive groundglass opacities are present throughout both lungs characteristic of a viral type p neumonitis and Covid 19 pneumonia. 3. Bibasilar atelectasis is also present. ACT 112: Negative or not required by law. Electronically signed by: Martin Ash M.D. 08/12/2021 11:27 AM
--- NOTE | 2021-08-12 11:37 | Critical Care Consultation ---
Date of Consultation August 12, 2021 Assessment & Plan (1) ARDS (adult respiratory distress syndrome): (2) Acute respiratory failure with hypoxia: (3) Pneumonia due to 2019 novel coronavirus: (4) Obesity: Impression: 65-year-old unvaccinated female now with Covid and progressive respiratory failure now requiring positive airway pressure. Her age and body mass index exclude her for ECMO. She is on dexamethasone. She is outside the window for remdesivir to have any clinical benefit. Her CRP is borderline to justify baricitinib. Procalcitonin was negative. BNP is not been assessed. Recommendations: 1. Acute hypoxemic respiratory failure/ARDS: Continue supportive care. We discussed intubation. The patient states that she is not ready to consider intubation currently. We will continue BiPAP. Recommended the patient to try to self proning is much as possible although her body mass index may not make that feasible. Recommend Granger catheter placement to facilitate tracking of input and output. Check BNP level. Diuresis may be warranted. Would consider echocardiogram if BNP level elevated. 2. Covid pneumonitis: Continue dexamethasone 6 mg daily. She is outside the window for remdesivir to have any clinical benefit as her pathology now appears to be more likely related to inflammation rather than viral replication. This will be discontinued. Her CRP is at the threshold for baricitinib. Given her clinical deterioration, this will be started however would likely stop should the patient progress to needing mechanical ventilation. 3. Patient reports that she would like to see how she does on BiPAP before considering intubation mechanical ventilation. 4. Continue DVT prophylaxis with Lovenox. Her overall prognosis is guarded. Given the CT appearance, the patient should respond favorably to proning if she progresses to intubation mechanical v entilation. Additional management per the patient's primary admitting service History of Present Illness Attending Physician: Celi Martinez MD History of Present Illness Asked by hospitalist to evaluate this patient with hypoxemic respiratory failure. Covid pneumonitis, and worsening respiratory distress. History is obtained from discussion with the patient as well as review the electronic medical record. Patient is a 65-year-old female not vaccinated for Covid who was admitted to the facility 08/08/2021. She had over 1 week of symptoms prior to presenting in the emergency room 1 day prior to admission. She was discharged with Covid and sent home. She returned hypoxemic with myalgias nausea diarrhea abdominal pain and shortness of breath. She was found to be hypoxemic. She was admitted to the hospital and treated with Decadron. She unfortunately has progressed to the point of requiring BiPAP currently on 100% with oxygen saturations of 97%. Allergies Allergy/AdvReac Type Severity Reaction Status Date / Time clindamycin Allergy Intermediate rash Verified 08/08/21 19:19 Home Medications Medication Instructions Recorded Confirmed Type Cbd Oil 8 drp PO BID 08/08/21 08/08/21 History aspirin 81 mg tablet,delayed 81 mg PO QAM 08/08/21 08/08/21 History release levothyroxine 112 mcg tablet 112 mcg PO QAM 08/08/21 08/08/21 History metoprolol tartrate 50 mg tablet 50 mg PO BID 08/08/21 08/08/21 History Patient History Medical History Acute myocardial infarction Dyslipidemia Gastroesophageal reflux disease Hypertension Social History Smoking Status: Never smoker Hx Alcohol Use: No Hx Substance Use: No Preferred Language: Kazakh Communication Ability: Effective 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 has dementia. Other Information That Helps Us Care for You: No Feels Safe at Home: Yes Assistive Devices: Oxygen - Continuous Review of Systems Review of Systems: Please refer to admission H&P. No additions or deletions Physical Exam Constitutional: + ill appearing and + obese Neck: trachea midline, no thyromegaly Respiratory: + labored breathing and + tachypneic; + abnormal respiratory effort Auscultation: + crackles Cardiovascular: RRR, no murmur, no edema Gastrointestinal (Abdomen): normal bowel sounds, soft, nontender, no hepatosplenomegaly Musculoskeletal: Extremities: extremities normal to inspection Skin: no rashes, warm and dry Neurologic: Nonfocal exam Lymphatic: no cervical lymphadenopathy Results & Data Results & Data ([facility]) Vital Signs (Past 12 Hours) Vital Signs Temp Pulse Pulse Resp BP BP Pulse Ox 08/12/21 10:10 87 26 H 90 08/12/21 08:10 87 24 83 L 08/12/21 06:18 79 08/12/21 05:47 83 27 H 88 L 08/12/21 05:04 36.9 C 83 24 115/75 90 08/12/21 03:30 82 22 83 L 08/11/21 23:57 36.9 C 77 18 102/64 94 Critical Care Results & Data Vital Signs (Past 12 Hours) Vital Signs Temp Pulse Pulse Resp BP BP Pulse Ox 08/12/21 10:10 87 26 H 90 08/12/21 08:10 87 24 83 L 08/12/21 06:18 79 08/12/21 05:47 83 27 H 88 L 08/12/21 05:04 36.9 C 83 24 115/75 90 08/12/21 03:30 82 22 83 L 08/11/21 23:57 36.9 C 77 18 102/64 94 Lab & Micro Results (Past 24 Hours) RBC 4.47 M/uL (4.2-5.4) 08/12/21 WBC 4.71 K/uL (4.8-10.8) L 08/12/21 Hgb 13.6 g/dL (12.0-16.0) 08/12/21 Hct 41.4 % (37-47) 08/12/21 MCV 92.6 fL (80-100) 08/12/21 MCH 30.4 pg (25-34) 08/12/21 MCHC 32.9 g/dL (32-36) 08/12/21 RDW Standard Deviation 47.4 fL (36.4-46.3) H 08/12/21 RDW Coefficient of Variation 13.9 % (11.5-14.5) 08/12/21 Plt Count 217 K/uL (130-400) 08/12/21 MPV 10.0 fL (7.4-10.4) 08/12/21 Creatinine 1.04 mg/dl (0.6-1.2) 08/12/21 Estimated GFR ( Amer) 65.3 ml/min 08/12/21 Estimated GFR (Non-Af Amer) 56.3 ml/min 08/12/21 No Data to Display Microbiology 08/09/21 Unknown Urine Culture - Final Urine,Clean Catch More than three types of organisms present, all high counts. Repeat collection recommended. No further identifications or sensitivities to follow. Diagnostic Findings (Past 24 Hours) Chest CTA 08/12/21 08:48 CT angio chest PE protocol CLINICAL HISTORY: Covid pneumonia. Shortness of breath and chest pain. Evaluate for pulmonary embolus COMPARISON STUDY: Portable chest from 08/08/2021 CT DOSE: 554.46 mGycm TECHNIQUE: CT Angio of the chest was performed.followed by image post processing with coronal, and sagittal MIP reformats. Contrast Volume: Optiray 320, 120 ml FINDINGS: Vasculature: There is homogeneous perfusion of the pulmonary vasculature bilaterally. No intraluminal filling defects or evidence for pulmonary embolus is seen. Airway: The airway is clear. No endobronchial lesion is identified. Lungs: Extensive groundglass opacities are present throughout both lungs characteristic of a viral type pneumonitis and Covid 19 pneumonia. The lungs are otherwise clear of confluent alveolar opacities, air bronchograms or pulmonary nodules. There is bibasilar atelectasis present. Pleura: There is no evidence for pleural effusion. There is no evidence for pneumothorax. Mediastinum: There is no evidence for pathologic adenopathy. The heart size is within normal limits. The thoracic aorta is within normal limits. There is no evidence for pericardial effusion. Upper abdomen:The adrenal glands are normal bilaterally. Osseous structures: There is no acute osseous pathology. Impression: 1. No CTA evidence for pulmonary embolus. 2. Extensive groundglass opacities are present throughout both lungs albert cteristic of a viral type pneumonitis and Covid 19 pneumonia. 3. Bibasilar atelectasis is also present. ACT 112: Negative or not required by law. Electronically signed by: Martin Ash M.D. 08/12/2021 11:27 AM I & O Totals 24 Hours 08/11/21 08/12/21 08/13/21 06:59 06:59 06:59 Intake Total 360 / 360 Balance 360 / 360 Cumulative 08/08/21 18:24 thru 08/12/21 09:30 Intake Total 1860 Balance 1860 RT Ventilator Mngmt (Last Documented) Ventilator Ordered Settings Respiratory Rate 26 08/12/21 10:10 Fraction of Inspired Oxygen 100 08/12/21 10:10 Ventilator - PT Measurements Respiratory Rate 26 Coding Level of Care Code Critical Care 1st 30-74 mins Diagnoses ARDS (adult respiratory distress syndrome) J80 Acute respiratory failure with hypoxia J96.01 Pneumonia due to 2019 novel coronavirus U07.1; J12.82 Obesity E66.9 Time Spent (min) 40
[2021-08-12] MEDS ORDERED: BARICITINIB COMMUNICATION ONE (11:42)
[2021-08-12] MEDS ORDERED: SODIUM CHLORIDE 0.9% 10ML FLUSH IV ONE (12:00)
[2021-08-12] MEDS: BARICITINIB 2 MG TAB PO SCH (12:39)
[2021-08-12] MEDS: METOPROLOL TARTRATE 50 MG TAB PO SCH ×2 (15:42→21:31)
--- NOTE | 2021-08-12 16:15 | Hospitalist Progress Note ---
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 Remains stable and complains to have weakness and tiredness-continue current management Condition has not improved and has been on CPAP/BiPAP to maintain saturation Appreciate pulmonary input and recommendation-proBNP has been negative for any CHF Has been started on baricitinib and remdesivir has been discontinued Updated the daughter (2) Acute respiratory failure with hypoxia: Plan: Treatment as above (3) Acute hyponatremia: Plan: Noted to have sodium of 131 on admission Has been improving as of today to 134 Normalized (4) Acute dehydration: Plan: Creatinine remains stable (5) Thrombocytopenia: Plan: Platelet minimally decreased at 123 Improved to 143 as of today 08/09/2021 (6) Hypertension: Plan: Blood pressure remains stable Plan: DVT prophylaxis Subcu Lovenox CODE STATUS Full Admission and Anticipated Discharge Date Admission Date: August 08, 2021 Subjective 08/09/2021 The patient was seen and examined in emergency room in presence of the daughter She has been feeling a little better since admission Still complains to have cough and shortness of breath 08/10/2021 The patient was seen and examined in medical telemetry unit and in the Covid room She has been feeling a little better but still requires 40 L 80% FiO2 to maintain saturation Has minimal cough and generalized weakness 08/11/2021 The patient was seen and examined in medical telemetry unit and in the Covid room She remains stable and has been requiring high flow oxygen to maintain saturation She was asking for ivermectin and chloroquine-informed that is not yet FDA approved and I cannot prescribe those 08/12/2021 The patient was seen and examined in medical telemetry unit and in the Covid room She has been requiring CPAP and high flow oxygen to maintain saturation Has been started on oral baricitinib as per pulmonary Review of Systems Review of Systems: All systems reviewed and are unremarkable except as noted below Respiratory: Mild to moderate shortness of breath at rest Physical Exam Physical Exam: Lying in bed with moderate distress due to shortness of breath and weakness Constitutional: well developed, well nourished, + ill appearing and + obese Eyes: PERRL, conjunctivae normal, anicteric sclerae ENMT: external ear and nose normal, oropharynx normal Neck: trachea midline, no thyromegaly Respiratory: + respiratory distress and + cough Auscultation: + diminished lung sounds and + crackles (Occasional crackles at the bases) Cardiovascular: Rate/Rhythm: regular rate and regular rhythm; not tachycardic Heart Sounds: normal S1 and normal S2; no murmur Extremities: + edema (Trace edema bilaterally) Gastrointestinal (Abdomen): Inspection/Auscultation: normal bowel sounds; abdomen not distended Percussion/Palpation: abdomen soft; abdomen nontender Musculoskeletal: No acute arthritis in any joint Neurologic: Alert, awake and oriented x3. Generally weak and lethargic Lymphatic: no cervical or axillary lymphadenopathy Results & Data Results & Data ([facility]) Vital Signs (Past 12 Hours) Vital Signs Temp Pulse Pulse Resp BP BP Pulse Ox 08/12/21 14:46 88 22 93 08/12/21 12:49 36.5 C 93 H 18 117/77 93 08/12/21 10:10 87 26 H 90 08/12/21 08:10 87 24 83 L 08/12/21 06:18 79 08/12/21 05:47 83 27 H 88 L 08/12/21 05:04 36.9 C 83 24 115/75 90 Laboratory Results Short CBC 08/12/21 Range/Units 05:31 WBC 4.71 L (4.8-10.8) K/uL Hgb 13.6 (12.0-16.0) g/dL Hct 41.4 (37-47) % Plt Count 217 (130-400) K/uL BMP 08/12/21 05:31 Creatinine 1.04 Medications Administered Current Inpatient Medications Acetaminophen (Acetaminophen 325 Mg Tab) 650 mg PO Q4H PRN PRN Reason: Pain or Fever Stop: 09/08/21 00:06 Last Admin: 08/12/21 05:11 Dose: 650 mg Documented by: Baricitinib (Baricitinib 2 Mg Tab) 2 mg PO DAILY ROD Stop: 12/11/21 09:01 Last Admin: 08/12/21 12:39 Dose: 2 mg Documented by: Dextrose (Dextrose 50% 50 Ml Syringe) 25 - 50 ml IV UD PRN; Protocol PRN Reason: Hypoglycemia Protocol Stop: 09/08/21 00:29 Enoxaparin Sodium (Enoxaparin Inj 40 Mg/0.4 Ml Syr) 40 mg SQ Q12H ROD Stop: 09/08/21 00:00 Last Admin: 08/12/21 10:02 Dose: 40 mg Documented by: Furosemide (Furosemide 40 Mg/4 Ml Vial) 40 mg IV DAILY ROD Stop: 09/08/21 15:59 Last Admin: 08/12/21 09:47 Dose: 40 mg Documented by: Glucagon (Glucagon For Inj 1 Mg Vial) 1 mg IM UD PRN; Protocol PRN Reason: Hypoglycemia Protocol Stop: 09/08/21 00:29 Glucose (Glucose 40% Gel 15 Gm Tube) 15 - 30 gm PO UD PRN; Protocol PRN Reason: Hypoglycemia Protocol Stop: 09/08/21 00:29 Glucose (Glucose 10 Tabs/Tube) 4 - 8 tabs PO UD PRN; Protocol PRN Reason: Hypoglycemia Protocol Stop: 09/08/21 00:29 Guaifenesin (Guaifenesin 600 Mg Tabcr) 1,200 mg PO Q12 ROD Stop: 09/08/21 20:59 Last Admin: 08/12/21 12:07 Dose: Not Given Documented by: Hydrocodone Bit/Homatropine Methylb (Hydrocodone/Homatropine Syrup 5mg/1.5mg 5ml Udp) 5 ml PO Q6H PRN PRN Reason: Cough Stop: 08/23/21 15:51 Dexamethasone 6 mg/ Syringe 1.5 mls @ 1 mls/min IV Q24H ROD Stop: 09/08/21 08:59 Last Admin: 08/12/21 09:46 Dose: 1 mls/min Documented by: Levothyroxine Sodium (Levothyroxine Sodium 112 Mcg Tablet) 112 mcg PO DAILYBB ROD Stop: 09/08/21 06:29 Last Admin: 08/12/21 05:12 Dose: 112 mcg Documented by: Metoprolol Tartrate (Metoprolol Tartrate 50 Mg Tab) 50 mg PO BID ROD Stop: 09/08/21 08:59 Last Admin: 08/12/21 15:42 Dose: Not Given Documented by: Miscellaneous (Carbohydrates For Hypoglycemia ) 15 - 30 gm PO UD PRN PRN Reason: Hypoglycemia Treatment Stop: 09/08/21 00:29 Nitroglycerin (Nitroglycerin Sl 0.4 Mg/Tab Tab) 0.4 mg SL UD PRN PRN Reason: Chest Pain Stop: 09/08/21 00:06 Ondansetron HCl (Ondansetron Inj 2 Mg/Ml 2 Ml Vial) 4 mg IV Q6H PRN PRN Reason: Nausea Stop: 09/08/21 00:06 Last Admin: 08/09/21 22:44 Dose: 4 mg Documented by:
[2021-08-13] MEDS: ENOXAPARIN INJ 40 MG/0.4 ML SYR SQ SCH ×3 (00:02→22:46)
[2021-08-13] MEDS: ACETAMINOPHEN 325 MG TAB PO PRN ×4 (04:07→21:10)
[2021-08-13] MEDS: LEVOTHYROXINE SODIUM 112 MCG TABLET PO SCH ×2 (04:07→09:03)
[2021-08-13] MEDS ORDERED: LORazepam 0.5 MG TAB PO STA (06:21)
[2021-08-13 06:52] LABS: Creatinine Clr Calc Pharmacy 74.6 ml/min; Est GFR (African American) 70.2 ml/min; Est GFR (Non-African American) 60.5 ml/min
[2021-08-13] MEDS: METOPROLOL TARTRATE 50 MG TAB PO SCH ×2 (09:03→21:10)
[2021-08-13] MEDS: guaiFENesin 600 MG TABCR PO SCH ×2 (09:05→21:09)
[2021-08-13] MEDS: FUROSEMIDE 40 MG/4 ML VIAL IV SCH (09:05)
[2021-08-13] MEDS: BARICITINIB 2 MG TAB PO SCH (09:45)
[2021-08-13] MEDS: dexAMETHasone 6 MG in SYRINGE 0 ML IV SCH (09:46)
[2021-08-13] MEDS ORDERED: REMDESIVIR 100 MG in SODIUM CHLORIDE 0.9% 230 ML IV SCH (12:00)
[2021-08-13] MEDS ORDERED: SODIUM CHLORIDE 0.9% 10ML FLUSH IV SCH (13:00)
[2021-08-13] MEDS ORDERED: MELATONIN 3 MG TAB PO PRN (15:27)
--- NOTE | 2021-08-13 16:52 | Hospitalist Progress Note ---
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 Bailey from tomorrow (2) Acute respiratory failure with hypoxia: Plan: Treatment as above (3) Acute hyponatremia: Plan: Noted to have sodium of 131 on admission Has been improving as of today to 134 Normalized (4) Acute dehydration: Plan: Creatinine remains stable (5) Thrombocytopenia: Plan: Platelet minimally decreased at 123 Improved to 143 as of today 08/09/2021 (6) Hypertension: Plan: Blood pressure remains stable Plan: DVT prophylaxis Subcu Lovenox CODE STATUS Full Admission and Anticipated Discharge Date Admission Date: August 08, 2021 Subjective 08/09/2021 The patient was seen and examined in emergency room in presence of the daughter She has been feeling a little better since admission Still complains to have cough and shortness of breath 08/10/2021 The patient was seen and examined in medical telemetry unit and in the Covid room She has been feeling a little better but still requires 40 L 80% FiO2 to maintain saturation Has minimal cough and generalized weakness 08/11/2021 The patient was seen and examined in medical telemetry unit and in the Covid room She remains stable and has been requiring high flow oxygen to maintain saturatio n She was asking for ivermectin and chloroquine-informed that is not yet FDA approved and I cannot prescribe those 08/12/2021 The patient was seen and examined in medical telemetry unit and in the Covid room She has been requiring CPAP and high flow oxygen to maintain saturation Has been started on oral baricitinib as per pulmonary 08/13/2021 The patient was seen and examined in medical telemetry unit She has been requiring high flow oxygen and CPAP to maintain saturation Clinically not any better Review of Systems Review of Systems: All systems reviewed and are unremarkable except as noted below Respiratory: Mild to moderate shortness of breath at rest Physical Exam Physical Exam: Lying in bed with moderate distress due to shortness of breath and weakness Constitutional: well developed, well nourished, + ill appearing and + obese Eyes: PERRL, conjunctivae normal, anicteric sclerae ENMT: external ear and nose normal, oropharynx normal Neck: trachea midline, no thyromegaly Respiratory: + respiratory distress and + cough Auscultation: + diminished lung sounds and + crackles (Occasional crackles at the bases) Cardiovascular: Rate/Rhythm: regular rate and regular rhythm; not tachycardic Heart Sounds: normal S1 and normal S2; no murmur Extremities: + edema (Trace edema bilaterally) Gastrointestinal (Abdomen): Inspection/Auscultation: normal bowel sounds; abdomen not distended Percussion/Palpation: abdomen soft; abdomen nontender Musculoskeletal: No acute arthritis in any joint Neurologic: Alert, awake and oriented x3. Generally weak and lethargic Lymphatic: no cervical or axillary lymphadenopathy Results & Data Results & Data ([facility]) Vital Signs (Past 12 Hours) Vital Signs Temp Pulse Pulse Resp BP Pulse Ox 08/13/21 14:54 87 18 93 08/13/21 10:13 36.6 C 89 20 131/76 90 08/13/21 10:05 87 26 H 89 L 08/13/21 07:00 85 26 H 89 L 08/13/21 06:17 87 Laboratory Results [facility] 08/13/21 05:36 Creatinine 0.98 Liver Function 08/13/21 Range/Units 05:36 AST 70 H (15-37) U/L ALT 62 (12-78) U/L Medications Administered Current Inpatient Medications Acetaminophen (Acetaminophen 325 Mg Tab) 650 mg PO Q4H PRN PRN Reason: Pain or Fever Stop: 09/08/21 00:06 Last Admin: 08/13/21 15:21 Dose: 650 mg Documented by: Baricitinib (4mg Daily X 14 Days (Egfr >60 Ml/Min/1.73m2)) 4 mg PO DAILY ROD; Protocol Stop: 08/25/21 09:01 Dextrose (Dextrose 50% 50 Ml Syringe) 25 - 50 ml IV UD PRN; Protocol PRN Reason: Hypoglycemia Protocol Stop: 09/08/21 00:29 Enoxaparin Sodium (Enoxaparin Inj 40 Mg/0.4 Ml Syr) 40 mg SQ Q12H ROD Stop: 09/08/21 00:00 Last Admin: 08/13/21 11:15 Dose: 40 mg Documented by: Furosemide (Furosemide 40 Mg/4 Ml Vial) 40 mg IV DAILY ROD Stop: 09/08/21 15:59 Last Admin: 08/13/21 09:05 Dose: 40 mg Documented by: Glucagon (Glucagon For Inj 1 Mg Vial) 1 mg IM UD PRN; Protocol PRN Reason: Hypoglycemia Protocol Stop: 09/08/21 00:29 Glucose (Glucose 40% Gel 15 Gm Tube) 15 - 30 gm PO UD PRN; Protocol PRN Reason: Hypoglycemia Protocol Stop: 09/08/21 00:29 Glucose (Glucose 10 Tabs/Tube) 4 - 8 tabs PO UD PRN; Protocol PRN Reason: Hypoglycemia Protocol Stop: 09/08/21 00:29 Guaifenesin (Guaifenesin 600 Mg Tabcr) 1,200 mg PO Q12 ROD Stop: 09/08/21 20:59 Last Admin: 08/13/21 09:05 Dose: 1,200 mg Documented by: Hydrocodone Bit/Homatropine Methylb (Hydrocodone/Homatropine Syrup 5mg/1.5mg 5ml Udp) 5 ml PO Q6H PRN PRN Reason: Cough Stop: 08/23/21 15:51 Dexamethasone 6 mg/ Syringe 1.5 mls @ 1 mls/min IV Q24H ROD Stop: 09/08/21 08:59 Last Admin: 08/13/21 09:46 Dose: 1 mls/min Documented by: Levothyroxine Sodium (Levothyroxine Sodium 112 Mcg Tablet) 112 mcg PO DAILYBB ROD Stop: 09/08/21 06:29 Last Admin: 08/13/21 09:03 Dose: 112 mcg Documented by: Melatonin (Melatonin 3 Mg Tab) 5 mg PO HS PRN PRN Reason: Sleep Stop: 09/12/21 15:26 Metoprolol Tartrate (Metoprolol Tartrate 50 Mg Tab) 50 mg PO BID ROD Stop: 09/08/21 08:59 Last Admin: 08/13/21 09:03 Dose: 50 mg Documented by: Miscellaneous (Carbohydrates For Hypoglycemia ) 15 - 30 gm PO UD PRN PRN Reason: Hypoglycemia Treatment Stop: 09/08/21 00:29 Nitroglycerin (Nitroglycerin Sl 0.4 Mg/Tab Tab) 0.4 mg SL UD PRN PRN Reason: Chest Pain Stop: 09/08/21 00:06 Ondansetron HCl (Ondansetron Inj 2 Mg/Ml 2 Ml Vial) 4 mg IV Q6H PRN PRN Reason: Nausea Stop: 09/08/21 00:06 Last Admin: 08/09/21 22:44 Dose: 4 mg Documented by:
--- NOTE | 2021-08-13 17:01 | Critical Care Progress Note ---
Date of Service August 13, 2021 Assessment & Plan (1) ARDS (adult respiratory distress syndrome): (2) Acute respiratory failure with hypoxia: (3) Pneumonia due to 2019 novel coronavirus: (4) Obesity: Plan: Impression: 65-year-old unvaccinated female now with Covid and progressive respiratory failure now requiring positive airway pressure. The patient is currently on CPAP at 14 cm of water and an FiO2 of 85%. Her age and body mass index exclude her for ECMO. She is on dexamethasone 6 mg IV daily She is outside the window for remdesivir to have any clinical benefit. Her CRP is borderline to justify baricitinib. Procalcitonin was negative. BNP is not been assessed. Recommendations: 1. Acute hypoxemic respiratory failure/ARDS: Continue supportive care. We discussed intubation and patient would be willing to be intubated and go on mechanical ventilation to save her life. Continue positive pressure treatment for now. Would alternate with high flow supplemental oxygen as tolerated. Advised patient that she should self prone as much as possible to avoid mechanical ventilation. Keep overall fluid balance negative. Patient is currently +1 L since admission. proBNP was not elevated and was 37 pg/ml. 2. Covid pneumonitis: Continue dexamethasone 6 mg IV daily. She is outside the window for remdesivir to have any clinical benefit as her pathology now appears to be more likely related to inflammation rather than viral replication. Rem desivir was discontinued by Dr. Frederick. Her CRP is at the threshold for baricitinib. Given her clinical deterioration, baricitinib was started 08/12/2021. This should be stopped should the patient progress to needing mechanical ventilation. 3. Patient continues to want to see how she does on BiPAP before considering intubation mechanical ventilation. However, patient clearly indicates that she would elect mechanical ventilation if needed 4. Continue DVT prophylaxis with Lovenox 40 mg IV twice daily. Her overall prognosis continues to be guarded. Given the CT appearance, the patient should respond favorably to proning if she progresses to intubation mechanical ventilation. Nursing was asked to encourage self proning as well as incentive spirometry with the patient in an attempt to forego endotracheal intubation Thank you for including us in the care of this patient. Please refer to Dr. Garzon's addendum for further recommendations. Admission and Anticipated Discharge Date Admission Date: August 08, 2021 Supervising Physician Co-Signing Physician Notes Patient separately seen and examined. Agree with the note above. Strongly encouraged the patient to continue to self proning. Patient notes that she has not proned this hospitalization. Continue diuresis as able. She has a high likelihood of requiring intubation and mechanical ventilation. Subjective Attending: Dr. Garzon Is a 65-year-old female that was admitted 08/08/2021 with COVID- 19/ARDs. She is now requiring alternating high flow supplemental oxygen and CPAP. Currently she is at 14 cm of water and an FiO2 of 85%. Respiratory rate is 18. Heart rate is 85. Patient does have conversational dyspnea. She denies any chest pain or tightness. She does have new onset back pain starting today. SaO2 on CPAP is 92% at the time of my examination. Patient does have decreased breath sounds and bibasilar crackles. She denies any fever or chills today. She has some cough but no hemoptysis. She complains of fatigue and breathlessness. She has no other acute complaints at this time. Review of Systems Review of Systems: All systems reviewed & are unremarkable except as noted in Subjective Physical Exam Physical Exam: GENERAL : No acute distress. Appears ill. Obese with a BMI of 32.8 kg/m. EYES: No icterus, gaze conjugate NOSE: No evidence of epistaxis MOUTH: No lesions or candidiasis NECK: Supple LUNGS: Decreased breath sounds. Tachypnea has resolved. Respiratory rate currently 18. Patient with bibasilar crackles. She continues on CPAP HEART: Regular, rate controlled in the mid 80s ABDOMEN: Soft, NT, ND, BS Present EXTREMITIES: No LE edema, pedal pulses intact. No asymmetrical edema NEURO: A&OX3 Results & Data Results & Data ([facility]) Vital Signs (Past 12 Hours) Vital Signs Temp Pulse Pulse Resp BP Pulse Ox 08/13/21 14:54 87 18 93 08/13/21 10:13 36.6 C 89 20 131/76 90 08/13/21 10:05 87 26 H 89 L 08/13/21 07:00 85 26 H 89 L 08/13/21 06:17 87 Laboratory Results 08/12/21 05:31 08/13/21 05:[address] angio chest PE protocol CLINICAL HISTORY: Covid pneumonia. Shortness of breath and chest pain. Evaluate for pulmonary embolus COMPARISON STUDY: Portable chest from 08/08/2021 CT DOSE: 554.46 mGycm TECHNIQUE: CT Angio of the chest was performed.followed by image post processing with coronal, and sagittal MIP reformats. Contrast Volume: Optiray 320, 120 ml FINDINGS: Vasculature: There is homogeneous perfusion of the pulmonary vasculature bilaterally. No intraluminal filling defects or evidence for pulmonary embolus is seen. Airway: The airway is clear. No endobronchial lesion is identified. Lungs: Extensive groundglass opacities are present throughout both lungs characteristic of a viral type pneumonitis and Covid 19 pneumonia. The lungs are otherwise clear of confluent alveolar opacities, air bronchograms or pulmonary nodules. There is bibasilar atelectasis present. Pleura: There is no evidence for pleural effusion. There is no evidence for pneumothorax. Mediastinum: There is no evidence for pathologic adenopathy. The heart size is within normal limits. The thoracic aorta is within normal limits. There is no evidence for pericardial effusion. Upper abdomen:The adrenal glands are normal bilaterally. Osseous structures: There is no acute osseous pathology. Impression: 1. No CTA evidence for pulmonary embolus. 2. Extensive groundglass opacities are present throughout both lungs characteristic of a viral type pneumonitis and Covid 19 pneumonia. 3. Bibasilar atelectasis is also present. ACT 112: Negative or not required by law. Electronically signed by: Martin Ash M.D. 08/12/2021 11:27 AM Coding Level of Care Code 76025 Subseq Hosp Care Lvl 3 Diagnoses ARDS (adult respiratory distress syndrome) J80 Acute respiratory failure with hypoxia J96.01 Pneumonia due to 2019 novel coronavirus U07.1; J12.82 Obesity E66.9 Time Spent (min) 30
[2021-08-14] MEDS: ACETAMINOPHEN 325 MG TAB PO PRN ×4 (03:46→21:40)
[2021-08-14 08:37] LABS: Albumin Level 2.7 gm/dl (3.4-5.0); BUN Creatinine Ratio 43.8 (10-20); C Reactive Protein 2.59 mg/dl (0-0.29); Calcium 9.1 mg/dl (8.5-10.1); Creatinine Clr Calc Pharmacy 68.9 ml/min; Est GFR (African American) 65.3 ml/min; Est GFR (Non-African American) 56.3 ml/min; Magnesium 2.7 mg/dl (1.8-2.4); Potassium 3.9 mmol/L (3.5-5.1)
[2021-08-14] MEDS: 4mg Daily x 14 days (eGFR >60 mL/min/1.73m2) PO SCH (08:37)
[2021-08-14] MEDS: guaiFENesin 600 MG TABCR PO SCH ×2 (08:38→20:28)
[2021-08-14] MEDS: dexAMETHasone 6 MG in SYRINGE 0 ML IV SCH (08:38)
[2021-08-14] MEDS: METOPROLOL TARTRATE 50 MG TAB PO SCH ×2 (08:39→20:29)
[2021-08-14] MEDS: FUROSEMIDE 40 MG/4 ML VIAL IV SCH (08:40)
[2021-08-14 08:42] LABS: Albumin Globulin Ratio 0.5 (0.9-2); Bilirubin,Total 0.6 mg/dl (0.2-1); Globulin 5.4 gm/dl (2.5-4.0); Phosphorus 3.1 mg/dl (2.5-4.9); Total Protein 8.1 gm/dl (6.4-8.2)
[2021-08-14] MEDS: ENOXAPARIN INJ 40 MG/0.4 ML SYR SQ SCH ×2 (11:04→23:30)
--- NOTE | 2021-08-14 23:41 | Hospitalist Progress Note ---
Date of Service August 14, 2021 Assessment & Plan (1) Pneumonia due to 2019 novel coronavirus: (2) Acute respiratory failure with hypoxia: Plan: She is not being vaccinated She has been having symptoms for about 1 week and was diagnosed to have Covid positive in ER on 08/08/2021 and she was discharged Return to the ER due to worsening symptoms and hypoxia CTA chest showed no evidence for PE. Extensive groundglass opacities are present throughout both lungs characteristic of a viral type pneumonitis and Covid 19 pneumonia. 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 (5) Thrombocytopenia: Plan: Platelet minimally decreased at 123 Improved to 143 as of today 08/09/2021 (6) Hypertension: Plan: Blood pressure remains stable Plan: DVT prophylaxis Subcu Lovenox CODE STATUS Full Admission and Anticipated Discharge Date Admission Date: August 08, 2021 Subjective Patient was seen and examined for follow-up of shortness of breath due to COVID- 19 Lying in bed with mild respiratory distress Continue to require high flow oxygen supplement She said that she continued to have shortness of breath with minimal exertion Denies any chest pain, palpitation, dizziness, and fever. Review of Systems Review of Systems: All systems reviewed & are unremarkable except as noted in Subjective Physical Exam Physical Exam: General- No acute distress Head- atraumatic Eyes- PERRL, EOMI, ENT- oropharynx clear Neck- supple, no JVD Lungs- +diminished BS Heart- regular rhythm; no murmur Abdomen- normal bowel sounds, soft, nontender Extremities- no calf tenderness Neuro- alert, oriented x 3; PERRL, EOMI; no facial palsy; no dysarthria Skin- warm & dry Results & Data Results & Data ([facility]) Vital Signs (Past 12 Hours) Vital Signs Temp Pulse Resp BP BP Pulse Ox 08/14/21 23:33 37.1 C 74 18 137/74 94 08/14/21 20:45 20 90 08/14/21 19:37 37.2 C 85 18 120/75 94 08/14/21 16:02 36.8 C 79 20 131/76 93 08/14/21 14:20 79 20 95 08/14/21 12:13 36.8 C 77 19 112/69 90
[2021-08-15] MEDS: ACETAMINOPHEN 325 MG TAB PO PRN ×4 (03:11→20:34)
[2021-08-15] MEDS: LEVOTHYROXINE SODIUM 112 MCG TABLET PO SCH (05:46)
[2021-08-15 08:06] LABS: Basophils # (auto) 0.01 K/uL (0-0.2); Basophils % (auto) 0.1 %; Eosinophils # (auto) 0.01 K/uL (0-0.5); Eosinophils % (auto) 0.1 %; Hematocrit (blood only) 45.9 % (37-47); Immature Granulocytes # (auto) 0.05 K/uL (0.00-0.02); Immature Granulocytes % (auto) 0.5 %; Lymphocytes # (auto) 1.32 K/uL (1.2-3.4); Lymphocytes % (auto) 14.3 %; Mean Corpuscular Hemoglobin 30.7 pg (25-34); Mean Corpuscular Hgb Conc 32.7 g/dL (32-36); Mean Corpuscular Volume 94.1 fL (80-100); Mean Platelet Volume 10.2 fL (7.4-10.4); Monocytes # (auto) 0.47 K/uL (0.11-0.59); Monocytes % (auto) 5.1 %; Neutrophils # (auto) 7.36 K/uL (1.4-6.5); Neutrophils % (auto) 79.9 %; Platelet Count 337 K/uL (130-400); RDW Coefficient of Variation 13.2 % (11.5-14.5); RDW Standard Deviation 45.9 fL (36.4-46.3); Red Blood Count 4.88 M/uL (4.2-5.4); White Blood Count 9.22 K/uL (4.8-10.8)
[2021-08-15 08:47] LABS: Albumin Level 2.8 gm/dl (3.4-5.0); BUN Creatinine Ratio 44.4 (10-20); Calcium 9.5 mg/dl (8.5-10.1); Est GFR (African American) 60.4 ml/min; Est GFR (Non-African American) 52.1 ml/min; Potassium 4.1 mmol/L (3.5-5.1)
[2021-08-15 08:50] LABS: Albumin Globulin Ratio 0.6 (0.9-2); Bilirubin,Total 0.7 mg/dl (0.2-1); Globulin 4.8 gm/dl (2.5-4.0); Total Protein 7.6 gm/dl (6.4-8.2)
[2021-08-15] MEDS: 4mg Daily x 14 days (eGFR >60 mL/min/1.73m2) PO SCH (09:44)
[2021-08-15] MEDS: METOPROLOL TARTRATE 50 MG TAB PO SCH ×2 (09:47→20:28)
[2021-08-15] MEDS: guaiFENesin 600 MG TABCR PO SCH ×2 (09:48→20:28)
[2021-08-15] MEDS: dexAMETHasone 6 MG in SYRINGE 0 ML IV SCH (09:48)
[2021-08-15] MEDS: ENOXAPARIN INJ 40 MG/0.4 ML SYR SQ SCH ×2 (11:32→23:52)
--- NOTE | 2021-08-15 18:12 | Pulmonology Progress Note ---
Date of Service August 15, 2021 Assessment & Plan (1) ARDS (adult respiratory distress syndrome): (2) Acute respiratory failure with hypoxia: (3) Pneumonia due to 2019 novel coronavirus: (4) Obesity: Plan: Impression: 65-year-old unvaccinated female now with Covid and progressive respiratory failure now requiring positive airway pressure. Her age and body mass index exclude her for ECMO. She is on dexamethasone. She is outside the window for remdesivir to have any clinical benefit. Her CRP is borderline to justify baricitinib. Procalcitonin was negative. BNP is not been assessed. Recommendations: 1. Acute hypoxemic respiratory failure/ARDS: Continue supportive care. Continue Decadron 6 mg daily for total of 10 days. She is currently on baricitinib. Continue 10 days total or stop if she becomes intubated. She has had slow improvement in her FiO2. 2. Covid pneumonitis: See above. Continue proning. Pulmonary will sign off at this time. Please recall if clinical condition worsens or there are further questions. Admission and Anticipated Discharge Date Admission Date: August 08, 2021 Subjective Patient seen and examined. She has been lying on her side and trying to prone. She does endorse fatigue and shortness of breath. She is currently on 70% FiO2 and 40 L of high flow nasal cannula saturating in the low 90s. Review of Systems Review of Systems: All systems reviewed & are unremarkable except as noted in HPI & below Physical Exam Physical Exam: GENERAL : No acute distress. Appears ill. Obese with a BMI of 32.8 kg/m. EYES: No icterus, gaze conjugate NOSE: No evidence of epistaxis MOUTH: No lesions or candidiasis NECK: Supple LUNGS: Decreased breath sounds. Tachypnea has resolved. Respiratory rate currently 18. Patient with bibasilar crackles. HEART: Regular, rate controlled in the mid 80s ABDOMEN: Soft, NT, ND, BS Present EXTREMITIES: No LE edema, pedal pulses intact. No asymmetrical edema NEURO: A&OX3 Results & Data Results & Data ([facility]) Vital Signs (Past 12 Hours) Vital Signs Temp Pulse Pulse Resp BP Pulse Ox 08/15/21 17:48 85 20 93 08/15/21 16:52 37 C 78 18 122/68 96 08/15/21 14:27 82 22 89 L 08/15/21 14:00 74 08/15/21 11:47 36.8 C 77 18 123/76 92 08/15/21 11:10 75 19 93 08/15/21 09:00 75 08/15/21 07:50 37 C 84 20 125/72 96 08/15/21 06:21 73 PG Care Time/CCT Total # of Minutes Spent Total Time Spent with Patient: Total time spent is greater than 50% in coordination of care (as documented) at patient's floor/unit and/or counseling patient: Coding Level of Care Code 97390 Subseq Hosp Care Lvl 2 Diagnoses ARDS (adult respiratory distress syndrome) J80 Acute respiratory failure with hypoxia J96.01 Pneumonia due to 2019 novel coronavirus U07.1; J12.82 Obesity E66.9
--- NOTE | 2021-08-15 20:12 | Hospitalist Progress Note ---
Date of Service August 15, 2021 Assessment & Plan (1) Pneumonia due to 2019 novel coronavirus: (2) Acute respiratory failure with hypoxia: Plan: Acute respiratory failure with hypoxia COVID-19 pneumonia ARDS Patient is not vaccinated CTA chest showed no evidence for PE. Extensive groundglass opacities are present throughout both lungs characteristic of a viral type pneumonitis and Covid 19 pneumonia. CRP:8.3>2.5 Patient refused remdesivir Continue dexamethasone, Bactrim Appreciate pulmonary input Pulmonary hygiene Continue oxygen support as needed Lasix as needed Continue to prone (3) Acute hyponatremia: Plan: Hyponatremia on presentation Sodium levels normalized Monitor (4) Acute dehydration: Plan: Creatinine stable Monitor (5) Thrombocytopenia: Plan: Resolved (6) Hypertension: Plan: Blood pressure stable Plan: DVT Px: Lovenox SQ CODE STATUS Full Code Admission and Anticipated Discharge Date Admission Date: August 08, 2021 Subjective Patient is seen and examined at bedside States feeling tired and has generalized weakness Dyspnea slightly better when compared to yesterday Currently on high flow oxygen Updated patient's family over the phone Denies any chest pain, dizziness, nausea, abdominal pain Review of Systems Review of Systems: All systems reviewed & are unremarkable except as noted in Subjective Physical Exam Physical Exam: Physical Exam: Vitals signs as noted above General Appearance:Moderately built and nourished, no apparent distress Head: normocephalic, Atraumatic Eyes: normal inspection, EOMI Neck: supple, Trachea midline Respiratory/Chest: Decreased breath sounds Cardiovascular: S1, S2, No murmur Abdomen/GI:Soft, Non tender, Bowel sounds present Extremities/Musculoskeletal:normal inspection, no edema Neurologic/Psych:AAOX3, grossly no focal neurological deficits Skin: normal color, warm Results & Data Results & Data ([facility]) Vital Signs (Past 12 Hours) Vital Signs Temp Pulse Pulse Resp BP Pulse Ox 08/15/21 17:48 85 20 93 08/15/21 16:52 37 C 78 18 122/68 96 08/15/21 14:27 82 22 89 L 08/15/21 14:00 74 08/15/21 11:47 36.8 C 77 18 123/76 92 08/15/21 11:10 75 19 93 08/15/21 09:00 75 Laboratory Results Short CBC 08/15/21 Range/Units 07:08 WBC 9.22 (4.8-10.8) K/uL Hgb 15.0 (12.0-16.0) g/dL Hct 45.9 (37-47) % Plt Count 337 (130-400) K/uL BMP 08/15/21 07:08 Sodium 140 Potassium 4.1 Chloride 98 Carbon Dioxide 34 H BUN 49 H Creatinine 1.11 Glucose 107 H Calcium 9.5 Liver Function 08/15/21 Range/Units 07:08 Total Bilirubin 0.7 (0.2-1) mg/dl AST 53 H (15-37) U/L ALT 59 (12-78) U/L Alkaline Phosphatase 70 (45-117) U/L Albumin 2.8 L (3.4-5.0) gm/dl
[2021-08-15] MEDS: MELATONIN 3 MG TAB PO SCH (20:28)
[2021-08-16] MEDS: LEVOTHYROXINE SODIUM 112 MCG TABLET PO SCH (06:25)
[2021-08-16] MEDS: dexAMETHasone 6 MG in SYRINGE 0 ML IV SCH (08:26)
[2021-08-16] MEDS: guaiFENesin 600 MG TABCR PO SCH ×2 (08:27→20:34)
[2021-08-16] MEDS: METOPROLOL TARTRATE 50 MG TAB PO SCH ×2 (08:28→20:35)
[2021-08-16 08:55] LABS: Est GFR (African American) 78.8 ml/min
[2021-08-16] MEDS ORDERED: BARICITINIB 2 MG TAB PO SCH (09:00)
[2021-08-16] MEDS ORDERED: FUROSEMIDE INJ 20 MG/2 ML VIAL IV ONE (09:38)
[2021-08-16] MEDS ORDERED: SODIUM CHLORIDE 0.65% NA SOLN 45 ML (OCEAN) ONE (09:43)
[2021-08-16] MEDS ORDERED: SODIUM CHLORIDE 0.65% NA SOLN 45 ML (OCEAN) PRN (09:46)
[2021-08-16] MEDS: ACETAMINOPHEN 325 MG TAB PO PRN (09:53)
[2021-08-16] MEDS: ENOXAPARIN INJ 40 MG/0.4 ML SYR SQ SCH (12:15)
--- NOTE | 2021-08-16 16:53 | Hospitalist Progress Note ---
Date of Service August 16, 2021 Assessment & Plan (1) Pneumonia due to 2019 novel coronavirus: (2) Acute respiratory failure with hypoxia: Plan: Acute respiratory failure with hypoxia COVID-19 pneumonia ARDS Patient is not vaccinated CTA chest showed no evidence for PE. Extensive groundglass opacities are present throughout both lungs characteristic of a viral type pneumonitis and Covid 19 pneumonia. CRP:8.3>2.5 Patient refused remdesivir Continue dexamethasone, Baricitinib Appreciate pulmonary input Pulmonary hygiene Continue oxygen support as needed Lasix as needed Continue to prone as able Continue current management Continue high flow oxygen for now (3) Acute hyponatremia: Plan: Hyponatremia on presentation Sodium levels normalized Monitor (4) Acute dehydration: Plan: Creatinine stable Monitor (5) Thrombocytopenia: Plan: Resolved (6) Hypertension: Plan: Blood pressure stable Plan: DVT Px: Lovenox SQ CODE STATUS Full Code Admission and Anticipated Discharge Date Admission Date: August 08, 2021 Subjective Patient is seen and examined at bedside States feeling better today Generalized weakness slowly improving Denies any dyspnea while on high flow oxygen Has cough with minimal expectoration Currently on 40 L, 70% FiO2 Denies any chest pain, dizziness, nausea, abdominal pain Review of Systems Review of Systems: All systems reviewed & are unremarkable except as noted in Subjective Physical Exam Physical Exam: Physical Exam: Vitals signs as noted above General Appearance:Moderately built and nourished, no apparent distress Head: normocephalic, Atraumatic Eyes: normal inspection, EOMI Neck: supple, Trachea midline Respiratory/Chest: Decreased breath sounds, CTA Cardiovascular: S1, S2, No murmur Abdomen/GI:Soft, Non tender, Bowel sounds present Extremities/Musculoskeletal:normal inspection, no edema Neurologic/Psych:AAOX3, grossly no focal neurological deficits Skin: normal color, warm Results & Data Results & Data ([facility]) Vital Signs (Past 12 Hours) Vital Signs Temp Pulse Pulse Resp BP BP Pulse Ox 08/16/21 15:13 81 21 144/90 H 92 08/16/21 14:55 84 16 91 08/16/21 12:09 37.2 C 75 20 123/64 91 08/16/21 11:44 72 20 92 08/16/21 09:00 74 08/16/21 07:40 36.8 C 78 22 123/76 91 08/16/21 06:14 78 26 H 91 Laboratory Results [facility] 08/16/21 07:29 Creatinine 0.89 Liver Function 08/16/21 Range/Units 07:29 AST 46 H (15-37) U/L ALT 57 (12-78) U/L
[2021-08-16] MEDS: MELATONIN 3 MG TAB PO SCH (21:45)
[2021-08-17] MEDS: ENOXAPARIN INJ 40 MG/0.4 ML SYR SQ SCH ×2 (01:13→13:14)
[2021-08-17] MEDS: ACETAMINOPHEN 325 MG TAB PO PRN ×4 (01:14→18:08)
[2021-08-17] MEDS: LEVOTHYROXINE SODIUM 112 MCG TABLET PO SCH (05:52)
[2021-08-17 07:46] LABS: Hematocrit (blood only) 42.4 % (37-47); Hemoglobin 14.2 g/dL (12.0-16.0); Mean Corpuscular Hemoglobin 30.5 pg (25-34); Mean Corpuscular Hgb Conc 33.5 g/dL (32-36); Mean Corpuscular Volume 91.2 fL (80-100); Mean Platelet Volume 10.2 fL (7.4-10.4); Platelet Count 452 K/uL (130-400); RDW Coefficient of Variation 12.9 % (11.5-14.5); RDW Standard Deviation 43.2 fL (36.4-46.3); Red Blood Count 4.65 M/uL (4.2-5.4)
[2021-08-17] MEDS: BARICITINIB 2 MG TAB PO SCH (08:34)
[2021-08-17] MEDS: METOPROLOL TARTRATE 50 MG TAB PO SCH ×2 (08:35→20:49)
[2021-08-17] MEDS: guaiFENesin 600 MG TABCR PO SCH ×2 (08:35→20:49)
[2021-08-17] MEDS: dexAMETHasone 6 MG in SYRINGE 0 ML IV SCH (08:36)
[2021-08-17 08:38] LABS: BUN Creatinine Ratio 42.6 (10-20); Calcium 8.9 mg/dl (8.5-10.1); Creatinine Clr Calc Pharmacy 76.7 ml/min; Est GFR (African American) 71.9 ml/min; Est GFR (Non-African American) 62.1 ml/min; Potassium 3.1 mmol/L (3.5-5.1)
[2021-08-17] MEDS ORDERED: POTASSIUM CHLORIDE CRTAB 20 MEQ TABCR PO ONE ×2 (09:05→16:00)
--- NOTE | 2021-08-17 09:38 | XRay Report ---
XR chest 1V portable CLINICAL HISTORY: COVID COMPARISON STUDY: Chest radiograph August 08, 2021. Chest CT August 12, 2021. FINDINGS: Extensive multifocal airspace opacities within lungs are again noted. Lung volumes are mild ly diminished. There is no pneumothorax or pleural effusion. No evidence for pulmonary edema. Cardiom ediastinal silhouette is stable. IMPRESSION: Persistent extensive multifocal airspace opacities consistent with viral pneumonia. ACT 112: Negative or not required by law. Electronically signed by: Danny Ortez M.D. 08/17/2021 9:36 AM
[2021-08-17] MEDS ORDERED: POLYETHYLENE (MIRALAX) 17 GM PACK PO ONE (17:16)
--- NOTE | 2021-08-17 19:36 | Hospitalist Progress Note ---
Date of Service August 17, 2021 Assessment & Plan (1) Pneumonia due to 2019 novel coronavirus: (2) Acute respiratory failure with hypoxia: Plan: Acute respiratory failure with hypoxia COVID-19 pneumonia ARDS Patient is not vaccinated CTA chest showed no evidence for PE. Extensive groundglass opacities are present throughout both lungs characteristic of a viral type pneumonitis and Covid 19 pneumonia. CRP:8.3>2.5 Patient refused remdesivir Continue dexamethasone, Baricitinib Appreciate pulmonary input Pulmonary hygiene Continue oxygen support as needed Lasix as needed On high flow oxygen Encouraged to prone Constipation Started on bowel regimen (3) Acute hyponatremia: Plan: Hyponatremia on presentation Sodium levels normalized Monitor (4) Acute dehydration: Plan: Creatinine stable Monitor (5) Thrombocytopenia: Plan: Resolved (6) Hypertension: Plan: Blood pressure stable Plan: DVT Px: Lovenox SQ CODE STATUS Full Code Admission and Anticipated Discharge Date Admission Date: August 08, 2021 Subjective Patient is seen and examined at bedside Reports constipation States feeling better overall Less dyspnea, cough Denies any chest pain, dizziness, nausea, abdominal pain Remains on high flow oxygen Review of Systems Review of Systems: All systems reviewed & are unremarkable except as noted in Subjective Physical Exam Physical Exam: Physical Exam: Vitals signs as noted above General Appearance:Moderately built and nourished, no apparent distress Head: normocephalic, Atraumatic Eyes: normal inspection, EOMI Neck: supple, Trachea midline Respiratory/Chest: Decreased breath sounds, CTA Cardiovascular: S1, S2, No murmur Abdomen/GI:Soft, Non tender, Bowel sounds present Extremities/Musculoskeletal:normal inspection, no edema Neurologic/Psych:AAOX3, grossly no focal neurological deficits Skin: normal color, warm Results & Data Results & Data ([facility]) Vital Signs (Past 12 Hours) Vital Signs Temp Pulse Pulse Resp BP BP Pulse Ox 08/17/21 18:07 81 26 H 93 08/17/21 15:46 88 26 H 91 08/17/21 15:41 36.5 C 85 18 131/84 94 08/17/21 15:00 83 08/17/21 11:48 36.4 C L 73 19 113/66 94 08/17/21 11:27 84 22 95 08/17/21 07:35 36.7 C 78 19 120/69 91 Laboratory Results Short CBC 08/17/21 Range/Units 07:07 WBC 9.70 (4.8-10.8) K/uL Hgb 14.2 (12.0-16.0) g/dL Hct 42.4 (37-47) % Plt Count 452 H (130-400) K/uL [facility] 08/17/21 07:07 Sodium 134 L Potassium 3.1 L D Chloride 95 L Carbon Dioxide 32 BUN 41 H Creatinine 0.96 Glucose 102 H Calcium 8.9
[2021-08-17] MEDS: MELATONIN 3 MG TAB PO SCH (20:49)
[2021-08-17] MEDS: DOCUSATE SODIUM 100 MG CAP PO SCH (20:49)
[2021-08-18] MEDS: ENOXAPARIN INJ 40 MG/0.4 ML SYR SQ SCH ×2 (00:49→12:09)
[2021-08-18] MEDS: LEVOTHYROXINE SODIUM 112 MCG TABLET PO SCH (05:48)
[2021-08-18 06:05] LABS: Hematocrit (blood only) 41.5 % (37-47); Hemoglobin 13.5 g/dL (12.0-16.0); Mean Corpuscular Hemoglobin 30.1 pg (25-34); Mean Corpuscular Hgb Conc 32.5 g/dL (32-36); Mean Corpuscular Volume 92.4 fL (80-100); Mean Platelet Volume 10.1 fL (7.4-10.4); Platelet Count 457 K/uL (130-400); RDW Coefficient of Variation 12.8 % (11.5-14.5); RDW Standard Deviation 43.3 fL (36.4-46.3); Red Blood Count 4.49 M/uL (4.2-5.4); White Blood Count 9.87 K/uL (4.8-10.8)
[2021-08-18 06:40] LABS: BUN Creatinine Ratio 36.9 (10-20); Calcium 8.9 mg/dl (8.5-10.1); Creatinine Clr Calc Pharmacy 88.6 ml/min; Est GFR (African American) 85.8 ml/min; Magnesium 2.4 mg/dl (1.8-2.4); Potassium 4.2 mmol/L (3.5-5.1)
[2021-08-18] MEDS ORDERED: POLYETHYLENE (MIRALAX) 17 GM PACK PO PRN (07:00)
[2021-08-18] MEDS: METOPROLOL TARTRATE 50 MG TAB PO SCH ×2 (08:32→19:57)
[2021-08-18] MEDS: dexAMETHasone 6 MG in SYRINGE 0 ML IV SCH (08:32)
[2021-08-18] MEDS: guaiFENesin 600 MG TABCR PO SCH ×2 (08:33→19:57)
[2021-08-18] MEDS: DOCUSATE SODIUM 100 MG CAP PO SCH ×2 (08:37→19:57)
[2021-08-18] MEDS: ACETAMINOPHEN 325 MG TAB PO PRN ×2 (08:37→19:58)
[2021-08-18] MEDS: BARICITINIB 2 MG TAB PO SCH (08:37)
[2021-08-18] MEDS ORDERED: FUROSEMIDE INJ 20 MG/2 ML VIAL IV ONE (09:53)
--- NOTE | 2021-08-18 19:36 | Hospitalist Progress Note ---
Date of Service August 18, 2021 Assessment & Plan (1) Pneumonia due to 2019 novel coronavirus: (2) Acute respiratory failure with hypoxia: Plan: Acute respiratory failure with hypoxia COVID-19 pneumonia ARDS Patient is not vaccinated CTA chest showed no evidence for PE. Extensive groundglass opacities are present throughout both lungs characteristic of a viral type pneumonitis and Covid 19 pneumonia. CRP:8.3>2.5 Patient refused remdesivir Continue dexamethasone, Baricitinib Appreciate pulmonary input Pulmonary hygiene Continue oxygen support as needed Lasix as needed Encouraged to prone Oxygen requirement slowly improving Currently on 3 L, 40% FiO2 high flow oxygen Constipation Continue bowel regimen (3) Acute hyponatremia: Plan: Hyponatremia on presentation Sodium levels normalized Monitor (4) Acute dehydration: Plan: Creatinine stable Monitor (5) Thrombocytopenia: Plan: Resolved (6) Hypertension: Plan: Blood pressure stable Plan: DVT Px: Lovenox SQ CODE STATUS Full Code Admission and Anticipated Discharge Date Admission Date: August 08, 2021 Subjective Patient is seen and examined at bedside Subjectively feels improving Still has cough with some expectoration Denies any chest pain, dizziness, nausea, abdominal pain Increased oxygen requirement today: high flow oxygen: 30 L, 40% FiO2 Review of Systems Review of Systems: All systems reviewed & are unremarkable except as noted in Subjective Physical Exam Physical Exam: Physical Exam: Vitals signs as noted above General Appearance:Moderately built and nourished, no apparent distress Head: normocephalic, Atraumatic Eyes: normal inspection, EOMI Neck: supple, Trachea midline Respiratory/Chest: Decreased breath sounds, minimal basal crackles Cardiovascular: S1, S2, No murmur Abdomen/GI:Soft, Non tender, Bowel sounds present Extremities/Musculoskeletal:normal inspection, no edema Neurologic/Psych:AAOX3, grossly no focal neurological deficits Skin: normal color, warm Results & Data Results & Data ([facility]) Vital Signs (Past 12 Hours) Vital Signs Temp Pulse Pulse Resp BP Pulse Ox 08/18/21 17:00 36.8 C 88 20 117/77 92 08/18/21 15:41 88 20 91 08/18/21 14:00 83 08/18/21 13:45 93 08/18/21 13:00 97 08/18/21 12:30 97 08/18/21 12:09 36.6 C 75 18 108/65 95 08/18/21 11:36 85 20 92 08/18/21 08:00 76 08/18/21 07:46 79 20 93 Laboratory Results Short CBC 08/18/21 Range/Units 05:42 WBC 9.87 (4.8-10.8) K/uL Hgb 13.5 (12.0-16.0) g/dL Hct 41.5 (37-47) % Plt Count 457 H (130-400) K/uL BMP 08/18/21 05:42 Sodium 136 Potassium 4.2 D Chloride 98 Carbon Dioxide 34 H BUN 31 H Creatinine 0.83 Glucose 104 H Calcium 8.9
[2021-08-18] MEDS: MELATONIN 3 MG TAB PO SCH (19:52)
[2021-08-19] MEDS: ENOXAPARIN INJ 40 MG/0.4 ML SYR SQ SCH ×3 (00:36→23:32)
[2021-08-19] MEDS: LEVOTHYROXINE SODIUM 112 MCG TABLET PO SCH (05:27)
--- NOTE | 2021-08-19 08:24 | XRay Report ---
XR chest 1V portable CLINICAL HISTORY: COVID COMPARISON STUDY: Chest CT August 12, 2021. Chest radiograph August 17, 2021. FINDINGS: Lung volumes are normal. There is no pneumothorax or pleural effusion. Extensive multifocal bilateral airspace opacities are similar to prior exam. Cardiomediastinal silhouette is stable. Ther e is no radiographic evidence for pneumomediastinum. IMPRESSION: Persistent extensive bilateral airspace opacities consistent with viral pneumonia. ACT 112: Negative or not required by law. Electronically signed by: Danny Ortez M.D. 08/19/2021 8:22 AM
[2021-08-19] MEDS: BARICITINIB 2 MG TAB PO SCH (08:28)
[2021-08-19] MEDS: METOPROLOL TARTRATE 50 MG TAB PO SCH ×2 (08:29→20:20)
[2021-08-19] MEDS: DOCUSATE SODIUM 100 MG CAP PO SCH ×2 (08:29→20:19)
[2021-08-19] MEDS: guaiFENesin 600 MG TABCR PO SCH ×2 (08:29→20:20)
[2021-08-19 08:41] LABS: Hematocrit (blood only) 40.8 % (37-47); Hemoglobin 13.6 g/dL (12.0-16.0); Mean Corpuscular Hemoglobin 30.8 pg (25-34); Mean Corpuscular Hgb Conc 33.3 g/dL (32-36); Mean Corpuscular Volume 92.3 fL (80-100); Mean Platelet Volume 10.3 fL (7.4-10.4); Platelet Count 574 K/uL (130-400); RDW Standard Deviation 44.1 fL (36.4-46.3); Red Blood Count 4.42 M/uL (4.2-5.4); White Blood Count 11.42 K/uL (4.8-10.8)
[2021-08-19] MEDS: ACETAMINOPHEN 325 MG TAB PO PRN (09:10)
[2021-08-19 09:16] LABS: BUN Creatinine Ratio 34.1 (10-20); Creatinine Clr Calc Pharmacy 86.4 ml/min; Est GFR (African American) 83.3 ml/min; Est GFR (Non-African American) 71.9 ml/min; Potassium 3.5 mmol/L (3.5-5.1)
--- NOTE | 2021-08-19 17:54 | Hospitalist Progress Note ---
Date of Service August 19, 2021 Assessment & Plan (1) Pneumonia due to 2019 novel coronavirus: (2) Acute respiratory failure with hypoxia: Plan: Acute respiratory failure with hypoxia COVID-19 pneumonia ARDS Patient is not vaccinated CTA chest showed no evidence for PE. Extensive groundglass opacities are present throughout both lungs characteristic of a viral type pneumonitis and Covid 19 pneumonia. CRP:8.3>2.5 Patient refused remdesivir Completed dexamethasone course Continue Baricitinib Appreciate pulmonary input Pulmonary hygiene Continue oxygen support as needed Lasix as needed Encouraged to prone Clinically improving Currently on 2 L supplemental oxygen 2 step prior to discharge Constipation Continue bowel regimen Had BM today (3) Acute hyponatremia: Plan: Hyponatremia on presentation Sodium levels normalized Monitor (4) Acute dehydration: Plan: Creatinine stable Monitor (5) Thrombocytopenia: Plan: Resolved (6) Hypertension: Plan: Blood pressure stable Plan: DVT Px: Lovenox SQ CODE STATUS Full Code Admission and Anticipated Discharge Date Admission Date: August 08, 2021 Subjective Patient is seen and examined at bedside Doing well today No new complaints Denies any dyspnea Cough improving Currently on 2 L supplemental oxygen Denies any chest pain, dizziness, nausea, abdominal pain Review of Systems Review of Systems: All systems reviewed & are unremarkable except as noted in Subjective Physical Exam Physical Exam: Physical Exam: Vitals signs as noted above General Appearance:Moderately built and nourished, no apparent distress Head: normocephalic, Atraumatic Eyes: normal inspection, EOMI Neck: supple, Trachea midline Respiratory/Chest: Decreased breath sounds,CTA Cardiovascular: S1, S2, No murmur Abdomen/GI:Soft, Non tender, Bowel sounds present Extremities/Musculoskeletal:normal inspection, no edema Neurologic/Psych:AAOX3, grossly no focal neurological deficits Skin: normal color, warm Results & Data Results & Data ([facility]) Vital Signs (Past 12 Hours) Vital Signs Temp Pulse Pulse Resp BP BP Pulse Ox 08/19/21 15:58 36.6 C 87 19 103/66 93 08/19/21 15:26 85 08/19/21 12:12 36.4 C L 75 19 101/68 94 08/19/21 09:00 95 08/19/21 08:04 36.8 C 78 20 101/62 91 08/19/21 08:00 83 Laboratory Results Short CBC 08/19/21 Range/Units 08:13 WBC 11.42 H (4.8-10.8) K/uL Hgb 13.6 (12.0-16.0) g/dL Hct 40.8 (37-47) % Plt Count 574 H (130-400) K/uL [facility] 08/19/21 08:13 Sodium 136 Potassium 3.5 D Chloride 98 Carbon Dioxide 32 BUN 29 H Creatinine 0.85 Glucose 100 H Calcium 9.0
[2021-08-19] MEDS: MELATONIN 3 MG TAB PO SCH (20:19)
[2021-08-19] MEDS ORDERED: SODIUM CHLORIDE 0.9% 500 ML IV ONE (23:38)
[2021-08-20] MEDS: LEVOTHYROXINE SODIUM 112 MCG TABLET PO SCH (05:42)
[2021-08-20 08:34] LABS: Albumin Level 2.3 gm/dl (3.4-5.0); Bilirubin Direct 0.1 mg/dl (0-0.2); Bilirubin,Total 0.6 mg/dl (0.2-1); C Reactive Protein 1.39 mg/dl (0-0.29); Total Protein 6.1 gm/dl (6.4-8.2)
[2021-08-20] MEDS ORDERED: METOPROLOL TARTRATE 25 MG TAB PO SCH (09:00)
[2021-08-20] MEDS: guaiFENesin 600 MG TABCR PO SCH (09:46)
[2021-08-20] MEDS: DOCUSATE SODIUM 100 MG CAP PO SCH (09:46)
[2021-08-20] MEDS: BARICITINIB 2 MG TAB PO SCH (09:46)
[2021-08-20] MEDS: ENOXAPARIN INJ 40 MG/0.4 ML SYR SQ SCH (12:53)
--- NOTE | 2021-08-20 15:32 | Hospitalist Progress Note ---
Date of Service August 20, 2021 Assessment & Plan (1) Pneumonia due to 2019 novel coronavirus: (2) Acute respiratory failure with hypoxia: Plan: Acute respiratory failure with hypoxia COVID-19 pneumonia ARDS Patient is not vaccinated CTA chest showed no evidence for PE. Extensive groundglass opacities are present throughout both lungs characteristic of a viral type pneumonitis and Covid 19 pneumonia. CRP:8.3>2.5 Patient refused remdesivir Completed dexamethasone course Continue Baricitinib while hospitalized Appreciate pulmonary input Pulmonary hygiene Continue oxygen support as needed Lasix as needed Encouraged to prone Clinically improved Currently on 2 L supplemental oxygen 2 step pending Constipation Continue bowel regimen Resolved (3) Acute hyponatremia: Plan: Hyponatremia on presentation Sodium levels normalized Monitor (4) Acute dehydration: Plan: Creatinine stable Monitor (5) Thrombocytopenia: Plan: Resolved (6) Hypertension: Plan: Blood pressure stable Plan: DVT Px: Lovenox SQ CODE STATUS Full Code Admission and Anticipated Discharge Date Admission Date: August 08, 2021 Subjective Patient is seen and examined at bedside States feeling much better today Blood pressure relatively low but denies any dizziness Prefers to be discharged home today Updated patient's daughter over the phone Sitting in chair during my encounter Plan for 2 step today Denies any chest pain, dizziness, nausea, abdominal pain Review of Systems Review of Systems: All systems reviewed & are unremarkable except as noted in Subjective Physical Exam Physical Exam: Physical Exam: Vitals signs as noted above General Appearance:Moderately built and nourished, no apparent distress Head: normocephalic, Atraumatic Eyes: normal inspection, EOMI Neck: supple, Trachea midline Respiratory/Chest: Decreased breath sounds,CTA Cardiovascular: S1, S2, No murmur Abdomen/GI:Soft, Non tender, Bowel sounds present Extremities/Musculoskeletal:normal inspection, no edema Neurologic/Psych:AAOX3, grossly no focal neurological deficits Skin: normal color, warm Results & Data Results & Data ([facility]) Vital Signs (Past 12 Hours) Vital Signs Temp Pulse Pulse Resp BP BP Pulse Ox 08/20/21 11:16 36.6 C 98 H 19 102/66 97 08/20/21 08:00 80 08/20/21 07:19 36.9 C 81 19 97/64 L 93 Laboratory Results Liver Function 08/20/21 Range/Units 07:28 Total Bilirubin 0.6 (0.2-1) mg/dl Direct Bilirubin 0.1 (0-0.2) mg/dl AST 38 H (15-37) U/L ALT 74 (12-78) Alkaline Phosphatase 73 (45-117) U/L Albumin 2.3 L (3.4-5.0) gm/dl
--- NOTE | 2021-08-20 16:35 | Discharge Summary ---
Date of Service August 20, 2021 Admission HPI Per Admitting Provider CHIEF COMPLAINT: Ongoing illness with COVID. HISTORY OF PRESENT ILLNESS: This is a 65-year-old female with past medical history significant for hypothyroidism, hyperlipidemia, prediabetes, chronic sinusitis, history of transient left ventricular apical ballooning syndrome, history of ME, reflux esophagitis, chronic kidney disease stage III, osteoarthrosis, obesity, who lives with her and son, who comes with ongoing illness with COVID. She has symptoms since 1 week. She was in the ER yesterday and diagnosed with COVID and was discharged. The patient says her symptoms got worse and came here and she was saturating at 88% on room air and on 2 liters she was saturating okay. She is saying she is having a lot of body aches, headaches, nauseous, poor appetite, diarrhea, abdominal pain, and cough with shortness of breath. Denies any chest pain. Not micturating much. No swelling in the legs. Vision is somewhat blurred and she feels some noise going in her head. Currently, has mild temperature spike and requiring oxygen in the ER. Admission Exam Per Admitting Provider PHYSICAL EXAMINATION: GENERAL: The patient is obese, not in acute distress. VITAL SIGNS: Temperature 37.7, pulse 95, respiratory rate in 20s, blood pressure 162/83, oxygen 94% on nasal cannula. HEENT: Pupils equal, round and reactive to light. Oral mucosa moist. NECK: No JVD, no neck masses. CARDIOVASCULAR: S1 and S2 heard. Tachycardia. No murmurs. RESPIRATORY SYSTEM: Normal AP diameter. No accessory muscle use. No wheezing, no crackles. ABDOMEN: Soft, bowel sounds present, nontender, no distention. CENTRAL NERVOUS SYSTEM: Cranial nerves II-XII grossly intact, nonfocal. EXTREMITIES: No edema, no erythema. Principal Diagnosis Acute respiratory failure with hypoxia COVID-19 pneumonia Acute respiratory distress syndrome Hyponatremia Discharge Data Allergies Allergy/AdvReac Type Severity Reaction Status Date / Time clindamycin Allergy Intermediate rash Verified 08/08/21 19:19 Consultations 08/08/21 20:00 ED Decision to Admit Stat 08/12/21 08:32 Consult Pulmonology Routine Ordered Studies 08/12/21 08:48 CT angio chest PE protocol Urgent Hospital Course (1) Pneumonia due to 2019 novel coronavirus: (2) Acute respiratory failure with hypoxia: Acute respiratory failure with hypoxia COVID-19 pneumonia ARDS Patient is not vaccinated CTA chest showed no evidence for PE. Extensive groundglass opacities are present throughout both lungs characteristic of a viral type pneumonitis and Covid 19 pneumonia. CRP:8.3>2.5 Patient refused remdesivir Completed dexamethasone course Continue Baricitinib while hospitalized Appreciate pulmonary input Pulmonary hygiene Continue oxygen support as needed Lasix as needed Encouraged to prone Clinically improved Currently on 2 L supplemental oxygen 2 step pending Constipation Continue bowel regimen Resolved (3) Acute hyponatremia: Hyponatremia on presentation Sodium levels normalized Monitor (4) Acute dehydration: Creatinine stable Monitor (5) Thrombocytopenia: Resolved (6) Hypertension: Blood pressure stable DVT Px: Lovenox SQ CODE STATUS Full Code Total Time Total Time Spent Total Time Spent (In Minutes): 55 minutes Discharge Plan Discharge Items Patient Disposition: Home - Self-Care Reason For Visit: Illness Discharge Diagnosis: Acute respiratory failure with hypoxia COVID-19 pneumonia Acute respiratory distress syndrome Hyponatremia Activity: Per Instructions section Exercise/Sports: Wait until after follow-up appointment Non-emergency contact: Primary Care Provider Call non-emergency contact if: you have any medication questions, your symptoms worsen, your pain is concerning for you and you have a fever Follow-up/Referrals: Chaparro Foster DO [Primary Care Provider] - (Date & Time 08/27/2021 11:00 AM Provider Chaparro Foster DO Department Family Practice [facility] PLEASE NOTE THAT THIS IS A TELEHEALTH VIDEO APPOINTMENT. PLEASE FOLLOW THE INSTRUCTIONS PROVIDED IN YOUR EMAIL. IF YOU HAVE ANY QUESTIONS REGARDING THIS APPOINTMENT, PLEASE CALL ) Diet: Heart Healthy Addtl Attending Provider Instructions: Follow-up with your primary care physician Dr. Chaparro Foster in 1 week as advised --- Your blood pressure medication metoprolol needs to be readjusted based on your blood pressure as outpatient. Follow-up with your physician for further medication adjustment. ---Use Oxygen 2 L via nasal cannula with activity. Seek immediate medical attention if your symptoms reoccur or worsen Please take all medications as instructed on discharge list below. Please call if you have any questions or problems. You can reach a [facility] hospitalist on duty at [facility] 24 hours a day by calling [phone] Pending Studies at Discharge: No Stand-Alone Forms: [facility], Smoking Cessation Medications and DC Order Prescriptions: New docusate sodium 100 mg Capsule 100 mg PO BID PRN (Reason: Constipation ) Qty: 30 RF: 0 polyethylene glycol 3350 [Miralax] 17 gram Powder In Packet 17 g PO DAILY PRN (Reason: constipation) Qty: 14 RF: 0 Continued aspirin 81 mg Tablet,Delayed Release (Dr/Ec) 81 mg PO QAM RF: 0 levothyroxine 112 mcg tablet 112 mcg PO QAM RF: 0 Cbd Oil 8 drp PO BID RF: 0 Changed metoprolol tartrate 50 mg tablet 25 mg PO BID Qty: 0 RF: 0 Discharge Orders: Discharge Order (Routine); Ordered 08/20/21 Ordered By: Jerome Delaney/Other Patient Handouts: A1C, Prediabetes, 5 Steps for Eating Healthier Admission Data Admit Date/Time: 08/08/21 22:24 Attending Provider: Jerome Velasquez Admit Provider: Hiram Alvarez Primary Care Provider: Chaparro Foster Other Providers: Hiram Alvarez ; David Frederick ; Celi Martinez
== END 2021-08-20 18:49 | disposition home or self-care (01) | DRG 177 ==
LOC: ED 18:33 → EDINP 22:24 → SUATTDRO 22:24 → EDINP 23:09 → 2W 08-09 14:29 → 2S 08-14 02:24

== ENCOUNTER 2023-10-09 16:47 | Inpatient (IN) ==
--- NOTE | 2023-10-09 17:24 | ED Triage Note ---
Date of Service October 09, 2023 Provider in Triage Author: Leila Rojo History of Present Illness This patient was briefly evaluated while in triage. An abbreviated physical exam was performed. This patient is a 67-year-old Female who presents to the ED for evaluation of flu like symptoms, diarrhea, bodyaches, headache and nausea. Symptoms started a week ago. She reports low oxygen levels (85%) but currently denies shortness of breath. Denies history of asthma, COPD or other lung conditions. Physical Exam VITALS: Vitals are noted on the nurse's note and reviewed by myself. GENERAL: This is a 67-year-old female, in no acute distress, well-developed well-nourished. SKIN: The skin was without rashes. HEART: Regular rate and rhythm without murmurs gallops or rubs. LUNGS: Clear to auscultation bilaterally without wheezes, rales or rhonchi. No retractions or accessory muscle use. NEURO: Patient was alert and oriented to person place and time. Initial orders for labs and / or imaging were placed and patient was placed in the waiting area until a bed is available. Please see further documentation for the full ED course. MDM / Impression Impression Impression: Hypoxia, Pneumonia Impression: Pneumonia Qualifiers: Pneumonia type: due to unspecified organism Laterality: unspecified laterality Lung location: unspecified part of lung Qualified Code(s): J18.9 - Pneumonia, unspecified organism
--- NOTE | 2023-10-09 18:02 | XRay Report ---
XR chest 1V portable CLINICAL HISTORY: flu like symptoms TECHNIQUE: Single frontal radiograph of the chest was obtained. Comparison: Comparison is made to chest radiographs 06/15/2020 FINDINGS: No lines and tubes are seen. The cardiomediastinal silhouette is normal. Faint airspace opacities are seen throughout. No evidence of pleural effusion or pneumothorax. IMPRESSION: Faint diffuse airspace opacities likely represent pneumonia. ACT 112: Negative or not required by law. Electronically signed by: Alfie Paige M.D. 10/09/2023 6:01 PM
[2023-10-09 18:56] LABS: Basophils # (auto) 0.06 K/uL (0.00-0.20); Basophils % (auto) 0.5 %; Hematocrit (blood only) 39.1 % (37.0-47.0); Hemoglobin 12.6 g/dl (12.0-16.0); Immature Granulocytes # (auto) 0.06 K/uL (0.01-0.20); Immature Granulocytes % (auto) 0.5 %; Lymphocytes # (auto) 1.85 K/uL (1.20-3.40); Lymphocytes % (auto) 14.1 %; Mean Corpuscular Hemoglobin 29.9 pg (25.0-34.0); Mean Corpuscular Hgb Conc 32.2 g/dL (32.0-36.0); Mean Corpuscular Volume 92.9 fL (80.0-100.0); Mean Platelet Volume 9.8 fL (9.4-12.4); Monocytes % (auto) 5.3 %; Neutrophils # (auto) 10.06 K/uL (1.40-6.50); Neutrophils % (auto) 76.6 %; Platelet Count 315 K/uL (130-400); RDW Coefficient of Variation 13.4 % (11.5-14.5); RDW Standard Deviation 44.9 fL (36.4-46.3); Red Blood Count 4.21 M/uL (4.20-5.40); White Blood Count 13.13 K/ul (4.8-10.8)
[2023-10-09 19:09] LABS: Influenza A virus by PCR Negative (Neg); Influenza B virus by PCR Negative (Neg); RSV by PCR Negative (Neg); SARS CoV2 RNA(COVID-19) Ceph NEGATIVE (Negative)
[2023-10-09 19:11] LABS: Albumin Level 3.6 gm/dl (3.4-5.0); BUN Creatinine Ratio 14.1 (10-20); Bilirubin,Total 0.4 mg/dl (0.2-1.0); Creatinine Clr Calc Pharmacy 87.9 ml/min; Est GFR (African American) 91.2 ml/min; Est GFR (Non-African American) 78.7 ml/min; Globulin 3.6 gm/dl (2.5-4.0); Potassium 3.8 mmol/L (3.5-5.1); Total Protein 7.2 gm/dl (6.0-8.3)
[2023-10-09 19:18] LABS: Troponin I High Sensitivity 10.9 pg/ml (0-14)
[2023-10-09 20:53] LABS: Adenovirus PCR Not Detected (NotDetected); Bordetella parapertussis PCR Not Detected (NotDetected); Bordetella pertussis PCR Not Detected (NotDetected); Chlamydia pneumoniae PCR Not Detected (NotDetected); Coronavirus 229E PCR Not Detected (NotDetected); Coronavirus CoV-2 (COVID19)PCR Not Detected (NotDetected); Coronavirus HKU1 PCR Not Detected (NotDetected); Coronavirus NL63 PCR Not Detected (NotDetected); Coronavirus OC43PCR Not Detected (NotDetected); Human Metapneumovirus PCR Not Detected (NotDetected); Influenza A PCR Not Detected (NotDetected); Influenza B PCR Not Detected (NotDetected); Mycoplasma pneumoniae PCR Not Detected (NotDetected); Parainfluenza Virus 1 PCR Not Detected (NotDetected); Parainfluenza Virus 2 PCR Not Detected (NotDetected); Parainfluenza Virus 3 PCR Not Detected (NotDetected); Parainfluenza Virus 4 PCR Not Detected (NotDetected); Respiratory Syncytial VirusPCR Not Detected (NotDetected); Rhinovirus/Enterovirus PCR Not Detected (NotDetected)
[2023-10-09] MEDS ORDERED: NSS + 20MEQ KCL 20 MEQ/1,000 ML BAG IV ONE (21:28)
[2023-10-09] MEDS ORDERED: cefTRIAXone SODIUM 2,000 MG/50 ML BAG IV STA (21:30)
[2023-10-09] MEDS ORDERED: AZITHROMYCIN 500 MG in DEXTROSE 5% 250 ML IV ONE (21:30)
[2023-10-09 22:04] LABS: Magnesium 2.1 mg/dl (1.7-2.4)
--- NOTE | 2023-10-09 22:12 | Emergency Department Note ---
History of Present Illness General Chief Complaint: Illness Stated Complaint: ILLNESS, COUGH Time Seen by Provider: 10/09/23 19:12 Source: patient and family (Son at bedside) History of Present Illness Provider Complaint: + cough and + nasal congestion Onset (ago): 1 week(s) Duration: + progressively worsening Able to tolerate fluids by mouth: Yes Context: + sick contacts ( in the adjacent hospital bed with similar complaints as the patient) Associated symptoms: + fever, + chills, + myalgias, + nasal congestion, + cough, + shortness of breath, + nausea, + vomiting and + diarrhea; no headache, no sore throat or no abdominal pain Home Medications Medication Instructions Recorded Confirmed Type Cbd Oil 8 drp PO BID 08/08/21 10/09/23 History aspirin 81 mg tablet,delayed 81 mg PO QAM 08/08/21 10/09/23 History release levothyroxine 112 mcg tablet 112 mcg PO QAM 08/08/21 10/09/23 History metoprolol tartrate 50 mg tablet 25 mg (1/2 x 50 mg) PO BID #0 tabs 08/20/21 10/09/23 Rx ergocalciferol (vitamin D2) 1,000 2,000 unit PO DAILY 07/08/22 10/09/23 History unit capsule quercetin 500 mg capsule 500 mg PO DAILY 07/08/22 10/09/23 History turmeric 400 mg PO DAILY 07/08/22 10/09/23 History ascorbic acid (vitamin C) 25 mg 25 mg PO DAILY 10/09/23 10/09/23 History tablet biotin 10,000 mcg capsule 1 mcg PO DAILY 10/09/23 10/09/23 History zinc 10 mg tablet 10 mg PO DAILY 10/09/23 10/09/23 History Allergies Allergy/AdvReac Type Severity Reaction Status Date / Time clindamycin Allergy Intermediate rash Verified 10/09/23 20:16 amoxicillin Allergy Rash Verified 10/09/23 20:16 Past Med/Surg History Medical History Hypertension Gastroesophageal reflux disease Dyslipidemia Acute myocardial infarction Surgical History No pertinent past surgical history Social History Smoking Status: Never smoker Hx Alcohol Use: No Hx Substance Use: No Preferred Language: Czech Communication Ability: Effective 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 has dementia. Feels Safe at Home: Yes Assistive Devices: Oxygen - Continuous Physical Exam 2 Vital Signs: Vital Signs - 24 hr 10/09/23 17:23 10/09/23 19:46 10/09/23 19:46 Temperature 36.3 C L Temperature Source Temporal Artery Sc an Pulse Rate 84 Pulse Rate [Finger ] 88 Pulse Rate from Sp O2 Sensor Respiratory Rate 19 Blood Pressure 140/77 Blood Pressure Elise n 98 Pulse Oximetry 93 87 L Pulse Oximetry [Re sting] 87 L Oxygen Delivery Me thod Room Air Room Air Room Air Oxygen Flow Rate 0 Sepsis Recent Feve r Within 48 Hours No Sepsis New/Unexpla ined Change in Men yesenia Status N/A Sepsis Action Take n by Nursing No Action Required 10/09/23 19:59 10/09/23 19:59 10/09/23 20:00 Temperature Temperature Source Pulse Rate 87 87 Pulse Rate [Finger ] Pulse Rate from Sp O2 Sensor 87 Respiratory Rate 18 Blood Pressure 156/79 H Blood Pressure Elise n 103 Pulse Oximetry 94 Pulse Oximetry [Re sting] Oxygen Delivery Me thod Oxygen Flow Rate Sepsis Recent Feve r Within 48 Hours Sepsis New/Unexpla ined Change in Men yesenia Status Sepsis Action Take n by Nursing 10/09/23 20:00 10/09/23 20:10 10/09/23 20:20 Temperature Temperature Source Pulse Rate 87 86 88 Pulse Rate [Finger ] Pulse Rate from Sp O2 Sensor 87 86 89 Respiratory Rate 20 16 Blood Pressure Blood Pressure Elise n Pulse Oximetry 95 94 93 Pulse Oximetry [Re sting] Oxygen Delivery Me thod Oxygen Flow Rate Sepsis Recent Feve r Within 48 Hours Sepsis New/Unexpla ined Change in Men yesenia Status Sepsis Action Take n by Nursing 10/09/23 20:30 10/09/23 20:40 10/09/23 20:50 Temperature Temperature Source Pulse Rate 87 104 H 91 H Pulse Rate [Finger ] Pulse Rate from Sp O2 Sensor 89 90 91 H Respiratory Rate 14 19 12 Blood Pressure Blood Pressure Elise n Pulse Oximetry 92 92 93 Pulse Oximetry [Re sting] Oxygen Delivery Me thod Oxygen Flow Rate Sepsis Recent Feve r Within 48 Hours Sepsis New/Unexpla ined Change in Men yesenia Status Sepsis Action Take n by Nursing 10/09/23 21:00 10/09/23 21:00 10/09/23 21:11 Temperature Temperature Source Pulse Rate 89 107 H Pulse Rate [Finger ] Pulse Rate from Sp O2 Sensor 91 H Respiratory Rate 15 Blood Pressure 128/89 Blood Pressure Elise n 105 Pulse Oximetry 95 Pulse Oximetry [Re sting] Oxygen Delivery Me thod Oxygen Flow Rate Sepsis Recent Feve r Within 48 Hours Sepsis New/Unexpla ined Change in Men yesenia Status Sepsis Action Take n by Nursing 10/09/23 21:20 10/09/23 21:30 10/09/23 21:40 Temperature Temperature Source Pulse Rate 93 H 91 H 95 H Pulse Rate [Finger ] Pulse Rate from Sp O2 Sensor 92 H 93 H 94 H Respiratory Rate 18 16 16 Blood Pressure Blood Pressure Elise n Pulse Oximetry 92 91 92 Pulse Oximetry [Re sting] Oxygen Delivery Me thod Oxygen Flow Rate Sepsis Recent Feve r Within 48 Hours Sepsis New/Unexpla ined Change in Men yesenia Status Sepsis Action Take n by Nursing 10/09/23 21:50 Temperature Temperature Source Pulse Rate 90 Pulse Rate [Finger ] Pulse Rate from Sp O2 Sensor 90 Respiratory Rate 19 Blood Pressure Blood Pressure Elise n Pulse Oximetry 91 Pulse Oximetry [Re sting] Oxygen Delivery Me thod Oxygen Flow Rate Sepsis Recent Feve r Within 48 Hours Sepsis New/Unexpla ined Change in Men yesenia Status Sepsis Action Take n by Nursing Physical Exam: Physical Exam GENERAL: oriented to person, place, and time. appears well-developed and well- nourished. HENT: Exam performed. - Head: Normocephalic and atraumatic. EYES: Conjunctivae and EOM are normal. Right eye exhibits no discharge. Left eye exhibits no discharge. No scleral icterus. NECK: Normal range of motion. Neck supple. No JVD present. CV: Normal rate, regular rhythm, normal heart sounds and intact distal pulses. There is no peripheral edema. Palpable radial pulses bue. PULM/CHEST: Rhonchi bilaterally. ABD: The abdomen is soft. There is no tenderness. NEURO: Motor and sensation grossly intact. SKIN: Skin is warm and dry. He is not diaphoretic. PSYCH: normal mood and affect. Behavior is normal. Judgment and thought content normal. Course Course 1911: The patient was evaluated in room B4B. A complete history and physical exam was performed Cardiac monitoring: An order was placed for continuous cardiac monitoring. The monitor shows a rate of 90 with sinus rhythm interpreted by me Patient found to be hypoxic on room air supplemental oxygen was applied via nasal cannula which improved the patient's oxygen saturation. 2044: Vital signs stable on supplemental oxygen via nasal cannula. Labs show leukocytosis of 13.13. Troponin negative. COVID RSV influenza negative. Chest x-ray shows pneumonia similar to the who was in the adjacent bed showing pneumonia. Will conduct a BioFire screening to see if there are any viral components to the patient and his 's pneumonia before beginning antibiotics. Patient will be admitted to the [facility] team Dr. Porter and he is in agreement. 2129: Vital signs stable supplemental oxygen via nasal cannula. Bio fire negative. in the adjacent bed who is also being admitted for hypoxia and pneumonia bio fire is also negative. Patient be treated for community- acquired pneumonia with Rocephin and azithromycin. Medical Decision Making Laboratory Data Attestation: I reviewed the patient's lab results. 10/09/23 18:05 10/09/23 18:05 Lab Results 10/09/23 10/09/23 Range/Units 18:05 19:46 WBC 13.13 H (4.8-10.8) K/ul RBC 4.21 (4.20-5.40) M/uL Hgb 12.6 (12.0-16.0) g/dl Hct 39.1 (37.0-47.0) % MCV 92.9 (80.0-100.0) fL MCH 29.9 (25.0-34.0) pg MCHC 32.2 (32.0-36.0) g/dL RDW Std Deviation 44.9 (36.4-46.3) fL RDW Coeff of Jelly 13.4 (11.5-14.5) % Plt Count 315 (130-400) K/uL MPV 9.8 (9.4-12.4) fL Immature Gran % (Auto) 0.5 % Neut % (Auto) 76.6 % Lymph % (Auto) 14.1 % [place] % (Auto) 5.3 % Eos % (Auto) 3.0 % Baso % (Auto) 0.5 % Neut # (Auto) 10.06 H (1.40-6.50) K/uL Lymph # (Auto) 1.85 (1.20-3.40) K/uL [place] # (Auto) 0.70 H (0.11-0.59) K/uL Eos # (Auto) 0.40 (0.00-0.50) K/uL Baso # (Auto) 0.06 (0.00-0.20) K/uL Immature Gran # (Auto) 0.06 (0.01-0.20) K/uL Sodium 137 (136-145) mmol/L Potassium 3.8 (3.5-5.1) mmol/L Chloride 101 (98-107) mmol/L Carbon Dioxide 28 (21-32) mmol/L Anion Gap 8 (3-11) BUN 11 (6-23) mg/dl Creatinine 0.78 (0.6-1.2) mg/dl Est Cr Clr Drug Dosing 87.9 ml/min Est GFR ( Amer) 91.2 ml/min Est GFR (Non-Af Amer) 78.7 ml/min BUN/Creatinine Ratio 14.1 (10-20) Glucose 105 H (70-99(Fasting)) mg/dl Calcium 9.0 (8.6-10.3) mg/dl Magnesium 2.1 (1.7-2.4) mg/dl Total Bilirubin 0.4 (0.2-1.0) mg/dl AST 14 (13-39) U/L ALT 11 (7-52) U/L Alkaline Phosphatase 116 H (34-104) U/L Troponin I High Sens 10.9 (0-14) pg/ml Total Protein 7.2 (6.0-8.3) gm/dl Albumin 3.6 (3.4-5.0) gm/dl Globulin 3.6 (2.5-4.0) gm/dl Albumin/Globulin Ratio 1.0 (0.9-2) Adenovirus (PCR) Not Detected (NotDetected) B. pertussis DNA (PCR) Not Detected (NotDetected) B.parapertussis DNA PCR Not Detected (NotDetected) C. pneumoniae DNA (PCR) Not Detected (NotDetected) Coronavirus OC43 (PCR) Not Detected (NotDetected) Coronavirus HKU1 (PCR) Not Detected (NotDetected) Coronavirus 229E (PCR) Not Detected (NotDetected) SARS-CoV-2 (PCR) NEGATIVE Not Detected (Negative) Coronavirus NL63 (PCR) Not Detected (NotDetected) Human Metapneumovir PCR Not Detected (NotDetected) Influenza Type A (PCR) Negative Not Detected (Neg) Influenza Type B (PCR) Negative Not Detected (Neg) M. pneumoniae (PCR) Not Detected (NotDetected) Parainfluenza 1 (PCR) Not Detected (NotDetected) Parainfluenza 2 (PCR) Not Detected (NotDetected) Parainfluenza 3 (PCR) Not Detected (NotDetected) Parainfluenza 4 (PCR) Not Detected (NotDetected) RSV (RT-PCR) Negative (Neg) RSV (PCR) Not Detected (NotDetected) Entero/Rhino (PCR) Not Detected (NotDetected) Imaging Data Attestation: I personally reviewed and interpreted this imaging study as follows: My Impression: Chest x-ray: Bilateral opacities showing pneumonia Radiologist's Impression: Chest X-Ray 10/09/23 17:25 XR chest 1V portable CLINICAL HISTORY: flu like symptoms TECHNIQUE: Single frontal radiograph of the chest was obtained. Comparison: Comparison is made to chest radiographs 06/15/2020 FINDINGS: No lines and tubes are seen. The cardiomediastinal silhouette is normal. Faint airspace opacities are seen throughout. No evidence of pleural effusion or pneumothorax. IMPRESSION: Faint diffuse airspace opacities likely represent pneumonia. ACT 112: Negative or not required by law. Electronically signed by: Alfie Paige M.D. 10/09/2023 6:01 PM ECG Data Attestation: I personally reviewed and interpreted this ECG as follows: Rate (beats per minute): 88 Rhythm: normal sinus Findings: no ST depression, no ST elevation or no prolonged QT Additional Comments: [facility] Narrative 1911: The patient was evaluated in room B4B. A complete history and physical exam was performed Cardiac monitoring: An order was placed for continuous cardiac monitoring. The monitor shows a rate of 90 with sinus rhythm interpreted by me Patient found to be hypoxic on room air supplemental oxygen was applied via nasal cannula which improved the patient's oxygen saturation. 2044: Vital signs stable on supplemental oxygen via nasal cannula. Labs show leukocytosis of 13.13. Troponin negative. COVID RSV influenza negative. Chest x-ray shows pneumonia similar to the who was in the adjacent bed showing pneumonia. Will conduct a BioFire screening to see if there are any viral components to the patient and his 's pneumonia before beginning antibiotics. Patient will be admitted to the [facility] team Dr. Porter and he is in agreement. 2129: Vital signs stable supplemental oxygen via nasal cannula. Bio fire negative. in the adjacent bed who is also being admitted for hypoxia and pneumonia bio fire is also negative. Patient be treated for community- acquired pneumonia with Rocephin and azithromycin. Impression & Plan Hypoxia, Pneumonia Critical Care Time Critical Care Time: Yes Total Critical Care Time: 60 I have personally spent greater than 60 minutes of critical care time in the direct management of this patient. This includes bedside care, interpretation of diagnostic studies, and testing, discussion with consultants, patient, and family members, and other required patient management activities. This 60 minutes is in excess of all separately billable procedures. Discharge Plan Visit Data Chief Complaint: Illness Stated Complaint: ILLNESS, COUGH ED Provider: Michael Ulloa Discharge Problem: Hypoxia, Pneumonia Patient Disposition: Admitted As Inpatient Forms Stand Alone Forms: My [facility] [place] [employer] Prescriptions Prescriptions: No Action aspirin 81 mg Tablet,Delayed Release (Dr/Ec) 81 mg PO QAM levothyroxine 112 mcg tablet 112 mcg PO QAM Cbd Oil 8 drp PO BID Rx Instructions: Patient is not sure of the strength metoprolol tartrate 50 mg tablet 25 mg PO BID Qty: 0 0RF Vitamin D2 1,000 unit Capsule 2,000 unit PO DAILY quercetin 500 mg Capsule 500 mg PO DAILY turmeric 400 mg PO DAILY biotin 10,000 mcg Capsule 1 mcg PO DAILY zinc 10 mg Tablet 10 mg PO DAILY Vitamin C 25 mg Tablet 25 mg PO DAILY Referrals Referrals: Chaparro Foster DO [Primary Care Provider] - Discharge Problem: Pneumonia Qualifiers: Pneumonia type: due to unspecified organism Laterality: unspecified laterality Lung location: unspecified part of lung Qualified Code(s): J18.9 - Pneumonia, unspecified organism
[2023-10-09 23:01] LABS: Partial Thromboplastin Time 29 Seconds (21-31)
--- NOTE | 2023-10-10 00:05 | History & Physical Report ---
Date of Service October 10, 2023 Assessment & Plan (1) Severe sepsis: Plan: SIRS plus hypoxemia secondary to atypical pneumonia stress-induced cardiomyopathy as per records, patient on dry side hx CAD as per records hypertension, stable hypothyroidism, euthyroid as of recent outpatient TSH from 3 months ago Medical telemetry Supplemental O2 CS, Doxycycline Pulmonary consult if without improvement DVT prophylaxis with Lovenox subcu Full code Patient requesting to share room with who is also going to be admitted for pulmonary issues. Text document was generated using [employer] voice recognition software. It may contain grammatical or spelling errors. Kindly contact undersigned for clarification of any documentation item in question. History of Present Illness Chief Complaint: Worsening cough, shortness of breath Primary Care Provider: Chaparro Foster DO History obtained from patient and records. Medical history significant for stress-induced cardiomyopathy as per records (EF 50 to 54%, TTE 2016), CAD, hypertension, hyperlipidemia, GERD, hypothyroidism. Last confinement August 2021 for respiratory failure secondary to COVID-19 pneumonia. Patient completed Decadron and Baricitinib course, refused Remdesivir. 1 week history of dry cough symptoms, patient unable to expectorate associated with fever, chills and myalgias, nausea, vomiting diarrhea. No headache, no abdominal pain. Denies chest pain. Worsening shortness of breath. Not sure about sick contacts. Patient got sick a day after her. O2 sats 80s upon arrival at the ER. Ceftriaxone and Azithromycin administered at the ER. 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 Allergies Allergy/AdvReac Type Severity Reaction Status Date / Time clindamycin Allergy Intermediate rash Verified 10/09/23 20:16 amoxicillin Allergy Rash Verified 10/09/23 20:16 Home Medications Medication Instructions Recorded Confirmed Type Cbd Oil 8 drp PO BID 08/08/21 10/09/23 History aspirin 81 mg tablet,delayed 81 mg PO QAM 08/08/21 10/09/23 History release levothyroxine 112 mcg tablet 112 mcg PO QAM 08/08/21 10/09/23 History metoprolol tartrate 50 mg tablet 25 mg (1/2 x 50 mg) PO BID #0 tabs 08/20/21 10/09/23 Rx ergocalciferol (vitamin D2) 1,000 2,000 unit PO DAILY 07/08/22 10/09/23 History unit capsule quercetin 500 mg capsule 500 mg PO DAILY 07/08/22 10/09/23 History turmeric 400 mg PO DAILY 07/08/22 10/09/23 History ascorbic acid (vitamin C) 25 mg 25 mg PO DAILY 10/09/23 10/09/23 History tablet biotin 10,000 mcg capsule 1 mcg PO DAILY 10/09/23 10/09/23 History zinc 10 mg tablet 10 mg PO DAILY 10/09/23 10/09/23 History Past Med/Surg History Medical History Hypertension Gastroesophageal reflux disease Dyslipidemia Acute myocardial infarction Surgical History No pertinent past surgical history Social History Smoking Status: Never smoker Hx Alcohol Use: No Hx Substance Use: No Preferred Language: Bulgarian Communication Ability: Effective 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 has dementia. Feels Safe at Home: Yes Review of Systems Review of Systems: As per HPI, all other systems reviewed and negative Physical Exam Physical Exam: GENERAL: Comfortable, obese, no respiratory distress SKIN: Normal color, warm HEENT: [place] palpebral conjunctivae, no ptosis, dry buccal mucosa, nasal cannula in place NECK : Supple, no tenderness CHEST : Decreased breath sounds, no tenderness HEART : Tachycardic, no obvious murmurs ABDOMEN: Some distention, nontender EXTREMITIES : Minimal LE swelling, no LE tenderness, no other conspicuous deformities noted NEUROLOGIC : Coherent, no facial asymmetry, no other gross focality Results & Data Results & Data Vital Signs (Past 12 Hours) Vital Signs Temp Pulse Pulse Resp BP Pulse Ox Pulse Ox 10/09/23 23:00 103 H 19 91 10/09/23 23:00 135/65 10/09/23 22:30 97 H 26 H 94 10/09/23 22:01 96 H 26 H 92 10/09/23 22:01 143/83 H 10/09/23 22:00 94 H 22 94 10/09/23 21:50 90 19 91 10/09/23 21:40 95 H 16 92 10/09/23 21:30 91 H 16 91 10/09/23 21:20 93 H 18 92 10/09/23 21:11 107 H 10/09/23 21:00 128/89 10/09/23 21:00 89 15 95 10/09/23 20:50 91 H 12 93 10/09/23 20:40 104 H 19 92 10/09/23 20:30 87 14 92 10/09/23 20:20 88 16 93 10/09/23 20:10 86 20 94 10/09/23 20:00 87 95 10/09/23 20:00 156/79 H 10/09/23 19:59 87 10/09/23 19:59 87 18 94 10/09/23 19:46 87 L 10/09/23 19:46 88 87 L 10/09/23 17:23 36.3 C L 84 19 140/77 93 O2 Del Method O2 Flow Rate 10/09/23 23:00 10/09/23 23:00 10/09/23 22:30 10/09/23 22:01 10/09/23 22:01 10/09/23 22:00 10/09/23 21:50 10/09/23 21:40 10/09/23 21:30 10/09/23 21:20 10/09/23 21:11 10/09/23 21:00 10/09/23 21:00 10/09/23 20:50 10/09/23 20:40 10/09/23 20:30 10/09/23 20:20 10/09/23 20:10 10/09/23 20:00 10/09/23 20:00 10/09/23 19:59 10/09/23 19:59 10/09/23 19:46 Room Air 0 10/09/23 19:46 Room Air 10/09/23 17:23 Room Air Laboratory Results Laboratory Results WBC 13.13 K/ul (4.8-10.8) H 10/09/23 18:05 RBC 4.21 M/uL (4.20-5.40) 10/09/23 18:05 Hgb 12.6 g/dl (12.0-16.0) 10/09/23 18:05 Hct 39.1 % (37.0-47.0) 10/09/23 18:05 MCV 92.9 fL (80.0-100.0) 10/09/23 18:05 MCH 29.9 pg (25.0-34.0) 10/09/23 18:05 MCHC 32.2 g/dL (32.0-36.0) 10/09/23 18:05 RDW Std Deviation 44.9 fL (36.4-46.3) 10/09/23 18:05 RDW Coeff of Jelly 13.4 % (11.5-14.5) 10/09/23 18:05 Plt Count 315 K/uL (130-400) 10/09/23 18:05 MPV 9.8 fL (9.4-12.4) 10/09/23 18:05 Immature Gran % (Auto) 0.5 % 10/09/23 18:05 Neut % (Auto) 76.6 % 10/09/23 18:05 Lymph % (Auto) 14.1 % 10/09/23 18:05 [place] % (Auto) 5.3 % 10/09/23 18:05 Eos % (Auto) 3.0 % 10/09/23 18:05 Baso % (Auto) 0.5 % 10/09/23 18:05 Neut # (Auto) 10.06 K/uL (1.40-6.50) H 10/09/23 18:05 Lymph # (Auto) 1.85 K/uL (1.20-3.40) 10/09/23 18:05 [place] # (Auto) 0.70 K/uL (0.11-0.59) H 10/09/23 18:05 Eos # (Auto) 0.40 K/uL (0.00-0.50) 10/09/23 18:05 Baso # (Auto) 0.06 K/uL (0.00-0.20) 10/09/23 18:05 Immature Gran # (Auto) 0.06 K/uL (0.01-0.20) 10/09/23 18:05 APTT 29 Seconds (21-31) 10/09/23 18:05 PTT Ratio 1.0 10/09/23 18:05 Sodium 137 mmol/L (136-145) 10/09/23 18:05 Potassium 3.8 mmol/L (3.5-5.1) 10/09/23 18:05 Chloride 101 mmol/L (98-107) 10/09/23 18:05 Carbon Dioxide 28 mmol/L (21-32) 10/09/23 18:05 Anion Gap 8 (3-11) 10/09/23 18:05 BUN 11 mg/dl (6-23) 10/09/23 18:05 Creatinine 0.78 mg/dl (0.6-1.2) 10/09/23 18:05 Est Cr Clr Drug Dosing 87.9 ml/min 10/09/23 18:05 Est GFR ( Amer) 91.2 ml/min 10/09/23 18:05 Est GFR (Non-Af Amer) 78.7 ml/min 10/09/23 18:05 BUN/Creatinine Ratio 14.1 (10-20) 10/09/23 18:05 Glucose 105 mg/dl (70-99(Fasting)) H 10/09/23 18:05 Lactate 1.3 mmol/L (0.4-2.0) 10/09/23 23:20 Calcium 9.0 mg/dl (8.6-10.3) 10/09/23 18:05 Magnesium 2.1 mg/dl (1.7-2.4) 10/09/23 18:05 Total Bilirubin 0.4 mg/dl (0.2-1.0) 10/09/23 18:05 AST 14 U/L (13-39) 10/09/23 18:05 ALT 11 U/L (7-52) 10/09/23 18:05 Alkaline Phosphatase 116 U/L (34-104) H 10/09/23 18:05 Troponin I High Sens 10.9 pg/ml (0-14) 10/09/23 18:05 Total Protein 7.2 gm/dl (6.0-8.3) 10/09/23 18:05 Albumin 3.6 gm/dl (3.4-5.0) 10/09/23 18:05 Globulin 3.6 gm/dl (2.5-4.0) 10/09/23 18:05 Albumin/Globulin Ratio 1.0 (0.9-2) 10/09/23 18:05 Adenovirus (PCR) Not Detected (NotDetected) 10/09/23 19:46 B. pertussis DNA (PCR) Not Detected (NotDetected) 10/09/23 19:46 B.parapertussis DNA PCR Not Detected (NotDetected) 10/09/23 19:46 C. pneumoniae DNA (PCR) Not Detected (NotDetected) 10/09/23 19:46 Coronavirus OC43 (PCR) Not Detected (NotDetected) 10/09/23 19:46 Coronavirus HKU1 (PCR) Not Detected (NotDetected) 10/09/23 19:46 Coronavirus 229E (PCR) Not Detected (NotDetected) 10/09/23 19:46 SARS-CoV-2 (PCR) Not Detected (NotDetected) 10/09/23 19:46 Coronavirus NL63 (PCR) Not Detected (NotDetected) 10/09/23 19:46 Human Metapneumovir PCR Not Detected (NotDetected) 10/09/23 19:46 Influenza Type A (PCR) Not Detected (NotDetected) 10/09/23 19:46 Influenza Type B (PCR) Not Detected (NotDetected) 10/09/23 19:46 M. pneumoniae (PCR) Not Detected (NotDetected) 10/09/23 19:46 Parainfluenza 1 (PCR) Not Detected (NotDetected) 10/09/23 19:46 Parainfluenza 2 (PCR) Not Detected (NotDetected) 10/09/23 19:46 Parainfluenza 3 (PCR) Not Detected (NotDetected) 10/09/23 19:46 Parainfluenza 4 (PCR) Not Detected (NotDetected) 10/09/23 19:46 RSV (RT-PCR) Negative (Neg) 10/09/23 18:05 RSV (PCR) Not Detected (NotDetected) 10/09/23 19:46 Entero/Rhino (PCR) Not Detected (NotDetected) 10/09/23 19:46 Impressions Chest X-Ray 10/09/23 17:25 XR chest 1V portable CLINICAL HISTORY: flu like symptoms TECHNIQUE: Single frontal radiograph of the chest was obtained. Comparison: Comparison is made to chest radiographs 06/15/2020 FINDINGS: No lines and tubes are seen. The cardiomediastinal silhouette is normal. Faint airspace opacities are seen throughout. No evidence of pleural effusion or pneumothorax. IMPRESSION: Faint diffuse airspace opacities likely represent pneumonia. ACT 112: Negative or not required by law. Electronically signed by: Alfie Paige M.D. 10/09/2023 6:01 PM Diagnostic Findings EKG as per my interpretation : Rate 90, NSR, LAD, LAFB, LVH, no ischemia
[2023-10-10] MEDS ORDERED: PROMETHAZINE HCL 12.5 MG in SODIUM CHLORIDE 0.9% 50 ML IV PRN (00:08)
[2023-10-10] MEDS ORDERED: guaiFENesin 600 MG TABCR PO STA (00:20)
[2023-10-10] MEDS ORDERED: ACETAMINOPHEN 325 MG TAB ONE (01:13)
[2023-10-10] MEDS: ACETAMINOPHEN 325 MG TAB PO PRN (01:15)
[2023-10-10] MEDS ORDERED: methylPREDNISolone 20 MG in SYRINGE 0 ML IV STA (01:56)
--- OUTSIDE RECORDS SUMMARY | 2023-10-10 03:11 | External Medical Summary ---
Author Name Unknown Address Unknown Organization [id number]:[facility] - [address] [facility] [address] Laboratory Report Ordering Provider Test Date Status NUHA DELACRUZ 06/30/2023 15:11:06 Final Observation Date Value Abnormality Reference (Units ) Status Triglyceride 06/30/2023 15:11:06 191 Above high normal <=174 (mg/dL) Final Triglyceride Reference Range s (mg/dL):
<150 Acceptable
150-174 Borderline high
175-499 High
>=500 Very high Cholesterol 06/30/2023 15:11:06 256 Above high normal <200 (mg/dL) Final Total Cholesterol Reference Ranges (mg/dL):
<200 Desirable
200-239 Borderline high
>=240 High HDL 06/30/2023 15:11:06 48 Below low normal >49 (mg/dL) Final HDL Cholesterol Reference Ra nges (mg/dL):
>=60 High (Desirable)
<50 Low (Undesirable) For Females
<40 Low (Undesirable) For Males NON-HDL CHOLESTEROL 06/30/2023 15:11:06 208 Above high normal <=159 (mg/dL) Final Non-HDL Cholesterol Referenc e Range (mg/dL):
<100 Target level for high risk ASCVD patient
<130 Optimal for general population
130-159 Near optimal for general population
160-189 Borderline High
190-219 High
>=220 Very High LDL, (calculated) 06/30/2023 15:11:06 170 Above high n ormal <=129 (mg/dL) Final LDL Cholesterol Reference Ra nges (mg/dL):
<70 Target level for high risk ASCVD patient
<100 Optimal for general population
100-129 Near optimal for general population
130-159 Borderline high
160-189 High
>=190 Very high Performing Location [facility] - [address] [facility] [address]
--- OUTSIDE RECORDS SUMMARY | 2023-10-10 03:11 | External Medical Summary | Summary of Care ---
Author Name Unknown Organization [facility] Address [address] [facility] [place] [address] Phone [phone] Care Team Providers Care Flight Paramedic Name Role Phone Chaparro Foster DO Primary Care Provider Reason for Visit * Reason Onset Date Comments Health Maintenance 04/16/2023 Encounter Details Date Type Department Care Team Description 04/16/2023 Telephone Family Practice [facility] [address] [place] [address] Chaparro Foster DO [address] [employer] [place] [address] Health Maintenance Allergies Active Allergy Reactions Severity Noted Date Comments Amoxicillin 08/12/2015 rash Clindamycin Hcl Rash Medium 07/20/2008 Levofloxacin Other (Please comment) Low 07/15/2022 Joint pains documented as of this encounter (statuses as of 04/16/2023) Medications Medication Sig Dispensed Refills Start Date End Date Status ECOTRIN LOW STRENGTH 81 MG PO TBEC one in the am 0 Active TYLENOL 325 MG PO TABS as needed 0 Active Vitamin C 250 MG Oral Tablet (Ascorbic Acid) Take 1 Tablet by mouth in the morning. 0 Active Vitamin D-3 25 MCG (1000 UT) Oral Capsule Take 1 Capsule by mouth in the morning. 0 Active Zinc 50 MG Oral Capsule Take 1 Capsule by mouth in the morning. 0 Active Biotin 1 MG Oral Capsule Take 1 Capsule by mouth in the morning and 1 Capsule at noon and 1 Capsule before bedtime. 0 Active Metoprolol Tartrate 50 MG Oral Tablet (Lopressor)Indication s:Stress-induced cardiomyopathy TAKE ONE TABLET BY MOUTH TWICE A DAY. 180 Tablet 1 12/23/2022 12/23/2023 Active Levothyroxine Sodium 112 MCG Oral Tablet (Levoxyl) TAKE ONE TABLET BY MOUTH DAILY AT LEAST 30 MINUTES PRIOR TO FIRST MEAL OF THE DAY OR OTHER MEDICATIONS. 90 Tablet 1 12/23/2022 12/23/2023 Active documented as of this encounter (statuses as of 04/16/2023) Active Problems Problem Noted Date Hypertensive kidney disease with stage 3 a chronic kidney disease 12/09/2022 Essential (primary) hypertension 022 Gastroesophageal reflux disease with eso phagitis 05/07/2022 Thrombocytopenia 08/27/2021 Old ID (myocardial infarction) 1 Chronic kidney disease, stage 3a 021 Overview: Per CKD protocol Primary localized osteoarthrosis of righ t lower leg 08/24/2018 Numbness and tingling in left hand 08/24 Prediabetes 10/28/2017 Overview: Per Prediabetes protocol #1 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 Dyslipidemia, goal LDL below 160 012 OBESITY, BMI 30-34 (SEE ACTUAL BMI) 11/14 Overview: Per Obesity Taxonomy Chronic sinusitis 03/16/2009 Family history of ischemic heart disease 02/13/2007 Other allergic rhinitis 02/13/2007 Overview: ICD-10 update of inactive term Hypothyroidism 02/13/2007 FAMILY HX-GI MALIGNANCY 08/28/2005 documented as of this encounter (statuses as of 04/16/2023) Resolved Problems Problem Noted Date Resolved Date Acute respiratory distress syndrome 08/27/2021 04/25/2022 Screening for diabetes mellitus 08/24/2018 09/04/2020 Myocardial infarction, apical 09/03/2012 Acute bronchitis, complicated 11/07/2009 Dyslipidemia, goal to be determined 08/31/2009 06/16/2012 Overview: Per Lipid Taxonomy. Dyslipidemia, goal LDL below 160 04/05/2008 08/31/2009 Overview: Per Lipid Taxonomy. OBESITY, UNSPECIFIED 09/04/2004 12/07/2009 Overview: Per Obesity Taxonomy FAMILY HX-GI MALIGNANCY 02/02/2002 02/14/20 07 Reflux esophagitis 02/02/2002 12/09/2022 documented as of this encounter (statuses as of 04/16/2023) Immunizations Name Administration Dates Next Due Seasonal Influenza, Quadriva lent, No Preserve, 6 Mons & Above, IM 06/27/2020,06/28/2019,06/22/2018 Seasonal Influenza, Quadriva lent, No Preserve, IM 08/12/2015 Seasonal Influenza, Split, I IV3, With Preserve, Inj 07/27/2013,06/25/2012,06/27/2011,07/30,08/29/2008 TDAP (age 10 and older)(Boostrix) 09/04/2020 TDAP (age 11 and older)(Adacel) 07/30/2010 Zoster Vaccine Recombinant (Shingrix) 03/06/2020,08/30/2019 02/29/2020 documented as of this encounter Social History Tobacco Use Types Packs/Day Years Used Date Smoking Tobacco: Never Smokeless Tobacco: Never Alcohol Use Standard Drinks/Week Comments No 0 (1 standard drink = 0.6 oz pur e alcohol) Food Insecurity Answer Date Recorded Within the past 12 months, y ou worried that your food would run out before you got money to buy more. Never true 08/30/2019 Within the past 12 months, t he food you bought just didn't last and you didn't have money to get more. Never true 08/30/2019 Sex Assigned at Date Recorded Female 09/04/2020 9:[address] Job Start Date Occupation Industry Not on file Not on file Not on file documented as of this encounter Miscellaneous Notes * Telephone Encounter - Raegan Gallo LPN - 04/16/2023 11:46 AM EDT Care Gaps Comprehensive Care Outreach Last Office/Telemedicine Visit: 07/15/2022 (in office), 08/27/2021 (telemedicine) Next Office Visit: 07/17/2023 Hemoglobin AIC Results: Lab Results Component Value Date/Time HEMOGLOBIN A1C - [facility] 5.9 (H) 03/28/2022 08:28 AM HEMOGLOBIN A1C - [facility] 6.6 (H) 08/30/2021 09:51 AM HEMOGLOBIN A1C - [facility] 6.0 (H) 03/08/2021 10:17 AM HEMOGLOBIN A1C - [facility] 5.9 (H) 09/04/2020 10:12 AM HEMOGLOBIN A1C - [facility] 6.0 (H) 10/13/2019 08:47 AM HEMOGLOBIN A1C - [facility] 6.0 (H) 03/22/2019 01:17 PM Reviewed Health Maintenance below: Health Maintenance Topic Date Due DXA Scan Never done COVID-19 Vaccine (1) Never done Pneumococcal Vaccine: 65+ Years (1 - PCV) Never done Albumin/Creatinine Ratio 03/08/2022 GFR 09/28/2022 HbA1c 03/28/2023 CKD HGB USE SMARTSET 46487 03/28/2023 CKD PHOS USE SMARTSET 38983 03/28/2023 TSH 03/28/2023 Depression Screening, Annual for Pts 12 and Over 05/07/2023 dexa my g Urine/labs already ordered Care Gap Outreach Action Taken: Myportal message sent documented in this encounter Plan of Treatment Upcoming Encounters Date Type Specialty Care Team Description 07/17/2023 Office Visit Family Medicine Chaparro Foster DO [address] [place] [id number] 10/31/2023 Office Visit Dermatology Flower Thomson MD [address] [facility] [place] [address] Scheduled Procedures Name Priority Associated Diagnoses Date/Ti me COLONOSCOPY FLEXIBLE PROXIMAL DIAGNOSTIC Recall History of colon polyps Health Maintenance Due Date Last Done Comments DXA Scan 1955 COVID-19 Vaccine (#1) 04/25/1956 Pneumococcal Vaccine: 65+ Years (1 - PCV) 1961 Albumin/Creatinine Ratio 03/08/2022 03/08/2021, 07/0 04/2019 GFR 09/28/2022 03/28/2022, 08/15, 08/08/2021, Additional history exists CKD HGB USE SMARTSET 55949 03/28/202303/28, 03/28/2022, 08/30/2021, Additional history exists CKD PHOS USE SMARTSET 41211 03/28/2023 03/28/2022, 0 03/08/2021 HbA1c 03/28/2023 03/28/2022, 08/15, 03/08/2021, Additional history exists TSH 03/28/2023 03/28/2022, 08/15, 03/08/2021, Additional history exists Depression Screening, Annual for Pts 12 and Over 05/07/2023 05/07/2022 Influenza Vaccine (FLU shot) (#1) 2023 06/27/2020, 06/28/2019, 06/22/2018, Additional history exists COLONOSCOPY-ANNUAL AGES 18-100 10/01/2023 10/01/2022, 10/01/2022, 03/11/2017, Additional history exists Mammogram 02/28/2024 02/27/2023, 10/17, 10/30/2020, Additional history exists Lipid Panel 03/28/2027 03/28/2022, 08/15, 03/08/2021, Additional history exists DTaP,Tdap,and Td Vaccines (3 - Td or Tdap) 09/04/2030 09/04/2020, 07/30/2010, 07/26/2003 Zoster Vaccines Completed 03/06/2020, 08/30/2019 COLONOSCOPY-EVERY 5 YRS AGES 18-100 Discontinued 10/01/2022, 10/01/2022, 03/11/2017, Additional history exists GARDASIL-HPV IMMUNIZATION SERIES Aged Out No longer eligible based on patient's age to complete this topic Hepatitis B Aged Out No longer eligi ble based on patient's age to complete this topic MENINGOCOCCAL (MENACTRA/MENVEO) Aged Out No longer eligible based on patient's age to complete this topic documented as of this encounter Medical Devices Implanted Type Area Field Worker Device Identifier Shelf Expiration Date Model / Serial / Lot Sureclip 16mm 235cm - [id number] Implanted:Qty: 1 on 10/01/2022 by Nery Panchal MD at ENDOSCOPY [facility] Colon MICRO TECH ENDOSCOPY 11/22/2024 [id number] / / documented as of this encounter Advance Directives Documents on File Type Date Recorded Patient Legal Secretary Expl anation Advance Directives and Living Will 01/31/2020 ADVANCE DIRECTIVE / LIVING WILL -DURABLE HEALTH CARE POA & LIVING WILL Care Teams Flight Paramedic Relationship Specialty Start Date End Date Chaparro Foster DO [address] [place] [address] PCP - General Family Medicine 08/24/18 documented as of this encounter
--- OUTSIDE RECORDS SUMMARY | 2023-10-10 03:11 | External Medical Summary | Summary of Care ---
Author Name Unknown Organization [facility] Address [address] [facility] [place] [address] Phone [phone] Care Team Providers Care Special Education Resource Room Teacher Name Role Phone Rigo Fosterr Angie Primary Care Provider Reason for Visit * Reason Comments Outpatient Testing Encounter Details Date Type Department Care Team Description 06/30/2023 Laboratory Laboratory, [facility] [address] [place] [address] [facility] [address] [place] [address] Hypertensive kidney disease with stage 3a chronic kidney disease (HCC); Dyslipidemia, goal LDL below 160; Prediabetes; Hypothyroidism, unspecified type; Abdominal pain, epigastric Allergies Active Allergy Reactions Severity Noted Date Comments Amoxicillin 08/12/2015 rash Clindamycin Hcl Rash Medium 07/20/2008 Levofloxacin Other (Please comment) Low 07/15/2022 Joint pains documented as of this encounter (statuses as of 06/30/2023) Medications Medication Sig Dispensed Refills Start Date [...] DAY. 180 Tablet 1 12/23/2022 12/23/2023 Active Omeprazole 40 MG Oral Capsule Delayed Release (PriLOSEC)Indications :Gastroesophageal reflux disease with esophagitis without hemorrhage Take 1 Capsule by mouth in the morning. 1 hour before the first meal of the day. 90 Capsule 3 06/30/2023 Active Levothyroxine Sodium 112 MCG Oral Tablet (Levoxyl) Take 1 Tablet by mouth daily first thing in the morning. 90 Tablet 3 06/30/2023 Active Clotrimazole-Betameth asone 1-0.05 % External Cream (Lotrisone)Indication s:Tinea corporis Apply topically to affected area 2 times a day for 28 days. or until healed. 90 g 5 06/30/2023 07/28/2023 Active Fluconazole 150 MG Oral Tablet (Diflucan)Indications :Tinea versicolor Take 2 tablets by mouth once weekly for 4 weeks. 8 Tablet 0 06/30/2023 Active Nutritional Supplement Oral Liquid Take by mouth. CBD oil 500 mg, 8 dropps taken by mouth twice daily per pt. 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 06/30/2023 Hypertensive kidney disease with stage 3 a chronic kidney disease 12/09/2022 Essential (primary) hypertension 022 Gastroesophageal reflux disease with eso phagitis 05/07/2022 Thrombocytopenia 08/27/2021 Old [place] (myocardial infarction) 1 Chronic kidney disease, stage [...] as of this encounter (statuses as of 06/30/2023) Resolved Problems Problem Noted Date Resolved Date [...] as of this encounter (statuses as of 06/30/2023) Immunizations Name Administration Dates Next Due SEASONAL INFLUENZA, PF, 6 M & Above, IM , (FLULAVAL or FLUZONE) 06/27/2020,06/28/2019,06/22/2018 Seasonal Influenza, Quadriva lent, No Preserve, [...] on file documented as of this encounter Plan of Treatment Upcoming Encounters Date Type Specialty Care Team Description 10/31/2023 Office Visit Dermatology Flower Thomson MD [address] [place] [address] [place] [address] 11/13/2023 Hospital Encounter Endoscopy Nery Panchal MD [address] [place] [address] 11/13/2023 Surgery Endoscopy Nery Panchal MD [address] [place] [address] COLONOSCOPY FLEXIBLE PROXIMAL DIAGNOSTIC 02/24/2024 Office Visit Family Medicine Chaparro Foster DO [address] [place] [address] Pending Results Name Type Priority Associated Diagnoses Date /Time COMPREHENSIVE METABOLIC PANEL Lab Routine Dyslipidemia, goal LDL below 160 Hypertensive kidney disease with stage 3a chronic kidney disease (HCC) 06/30/2023 3:11 PM EDT HEMOGLOBIN A1C Lab Routine Prediabetes 06/30/2023 3:11 PM EDT LIPID PANEL WITH DIRECT LDL IF TG IS HIGH Lab Routine Dyslipidemia, goal LDL below 160 06/30/2023 3:11 PM EDT TSH WITH FREE T4 IF INDICATED Lab Routine Hypothyroidism, unspecified type 06/30/2023 3:11 PM EDT GGTP Lab Routine Abdominal pain, epigastric 06/30/2023 3:11 PM EDT ALBUMIN / CREATININE RATIO, URINE Lab Routine Hypertensive kidney disease with stage 3a chronic kidney disease (HCC) 06/30/2023 3:16 PM EDT Scheduled Procedures Name Priority Associated Diagnoses Date/Ti me COLONOSCOPY FLEXIBLE PROXIMA L DIAGNOSTIC History of colon polyps Gastroesophageal reflux disease, unspecified whether esophagitis present 11/13/2023 1:30 PM EST ESOPHAGOGASTRODUODENOSCOPY ( EGD), FLEXIBLE, TRANSORAL, DIAGNOSTIC History of colon polyps Gastroesophageal reflux disease, unspecified whether esophagitis present 11/13/2023 1:30 PM EST Health Maintenance Due Date Last Done Comments DXA Scan 1955 COVID-19 Vaccine (#1) 04[birth year]25/1956 Pneumococcal Vaccine: 65+ Years (1 - PCV) 1961 Albumin/Creatinine Ratio 03/08/2022 03/08/2021, 07/0 04/2019 GFR 09/28/2022 03/28/2022, 08/15, 08/08/2021, Additional history exists CKD HGB USE SMARTSET 77016 03/28/202306/30, 06/30/2023, 03/28/2022, Additional history exists CKD PHOS USE SMARTSET 00815 03/28/2023 03/28/2022, 0 03/08/2021 HbA1c 03/28/2023 03/28/2022, 08/15, 03/08/2021, Additional history exists TSH 03/28/2023 03/28/2022, 08/15, 03/08/2021, Additional history exists Depression Screening 05/07/2023 05/07/2022 Influenza Vaccine (FLU shot) (#1) 2023 06/27/2020, 06/28/2019, 06/22/2018, Additional history exists COLONOSCOPY-ANNUAL AGES 18-100 10/01/2023 10/01/2022, 10/01/2022, 03/11/2017, Additional history exists Mammogram 02/28/2024 02/27/2023, 02/09/2021, 10/30/2020, Additional history exists Lipid Panel 03/28/2027 [...] this encounter Medical Devices Implanted Type Area Pin Sticker Device Identifier Shelf Expiration Date Model / Serial / Lot Sureclip 16mm 235cm - [id number] Implanted:Qty: 1 on 10/01/2022 by Nery Panchal MD at ENDOSCOPY [facility] Colon MICRO TECH ENDOSCOPY 11/22/2024 [id number] / / documented as of this encounter Procedures Procedure Name Priority Date/Time Associated Diagnosis Comments DIFFERENTIAL, AUTOMATED Routine 06/30/2023 3:11 PM EDT Hypertensive kidney disease with stage 3a chronic kidney disease (HCC) CBC Routine 06/30/2023 3:11 PM EDT Hypertensive kidney disease with stage 3a chronic kidney disease (HCC) CBC Routine 06/30/2023 3:11 PM EDT Hypertensive kidney disease with stage 3a chronic kidney disease (HCC) documented in this encounter Results * DIFFERENTIAL, AUTOMATED (06/30/2023 3:11 PM EDT) WBC 6.82 4.00 - 10.80 K/uL 06/30/2023 3:27 PM EDT [facility] Neutrophils % 64.2 40.0 - 75.0 % 06/30/2023 3:27 PM EDT [facility] Lymphocytes % 27.1 18.0 - 42.0 % 06/30/2023 3:27 PM EDT [facility] Monocytes % 6.6 1.0 - 11.0 % 06/30/2023 3:27 PM EDT [facility] Eosinophils % 1.5 0.0 - 6.0 % 06/30/2023 3:27 PM EDT [facility] Basophils % 0.6 0.0 - 2.0 % 06/30/2023 3:27 PM EDT [facility] Absolute Neutrophils 4.38 1.80 - 7.70 K/uL 06/30/2023 3:27 PM EDT [facility] Absolute Lymphocytes 1.85 1.00 - 4.80 K/ul 06/30/2023 3:27 PM EDT [facility] Absolute Monocytes 0.45 0.00 - 1.10 K/uL 06/30/2023 3:27 PM EDT [facility] Absolute Eosinophils 0.10 0.00 - 0.70 K/uL 06/30/2023 3:27 PM EDT [facility] Absolute Basophils 0.04 0.00 - 0.20 K/uL 06/30/2023 3:27 PM EDT [facility] Blood Venous blood specimen / Unknown Venipuncture / Unknown 06/30/2023 3:11 PM EDT 06/30/2023 3:11 PM EDT Chaparro Foster DO LAB BLOOD ORDER [facility] [place] [id number] * CBC (06/30/2023 3:11 PM EDT) [facility] WBC 6.82 4.00 - 10.80 K/uL 06/30/2023 3:27 PM EDT [facility] RBC 4.33 3.85 - 5.15 M/uL 06/30/2023 3:27 PM EDT [facility] HGB 13.4 12.0 - 15.3 g/dL 06/30/2023 3:27 PM EDT [facility] HCT 40.9 36.0 - 45.2 % 06/30/2023 3:27 PM EDT [facility] MCV 94.5 81.5 - 97.5 fL 06/30/2023 3:27 PM EDT [facility] MCH 30.9 27.0 - 34.0 pg 06/30/2023 3:27 PM EDT [facility] MCHC 32.8 32.0 - 36.0 g/dL 06/30/2023 3:27 PM EDT [facility] RDW 13.3 11.5 - 15.5 % 06/30/2023 3:27 PM EDT [facility] PLT 248 140 - 400 K/uL 06/30/2023 3:27 PM EDT [facility] MPV 10.0 6.6 - 11.1 fL 06/30/2023 3:27 PM EDT [facility] Blood Venous blood specimen / Unknown Venipuncture / Unknown 06/30/2023 3:11 PM EDT 06/30/2023 3:11 PM EDT Chaparro Foster DO LAB BLOOD ORDER [facility] [place] [address] documented in this encounter Visit Diagnoses Diagnosis Hypertensive kidney disease with stage 3a chronic kidney disease (HCC) Dyslipidemia, goal LDL below 160 Other and unspecified hyperlipidemia Prediabetes Other abnormal glucose Hypothyroidism, unspecified type Abdominal pain, epigastric History of colon polyps Personal history of colonic polyps Gastroesophageal reflux disease, unspecified whether esophagitis present documented in this encounter Advance Directives Documents on File Type Date Recorded Patient Tape Edge Machine Operator Expl anation Advance Directives and Living Will 01/31/2020 ADVANCE DIRECTIVE / LIVING WILL -DURABLE HEALTH CARE POA & LIVING WILL Care Teams Special Education Resource Room Teacher Relationship Specialty Start Date End Date Chaparro Foster DO [address] [place] [address] PCP - General Family Medicine 08/24/18 documented as of this encounter
--- OUTSIDE RECORDS SUMMARY | 2023-10-10 03:11 | External Medical Summary ---
Author Name Unknown Address Unknown Organization [id number][facility] [address] [place] [address] Laboratory Report Ordering Provider Test Date Status NUHA DELACRUZ 06/30/2023 15:11:06 Final Observation Date Value Abnormality Reference (Units ) Status WBC, Total 06/30/2023 15:11:06 6.82 4.00-10.8 0 (K/uL) Final RBC 06/30/2023 15:11:06 4.33 3.85-5.15 (M/uL) Final Hemoglobin 06/30/2023 15:11:06 13.4 12.0-15.3 (g/dL) Final HCT 06/30/2023 15:11:06 40.9 36.0-45.2 (%) Final MCV 06/30/2023 15:11:06 94.5 81.5-97.5 (fL) Final MCH 06/30/2023 15:11:06 30.9 27.0-34.0 (pg) Final MCHC 06/30/2023 15:11:06 32.8 32.0-36.0 (g/dL) Final RDW 06/30/2023 15:11:06 13.3 11.5-15.5 (%) Final Platelets 06/30/2023 15:11:06 248 140-400 (K /uL) Final MPV 06/30/2023 15:11:06 10.0 6.6-11.1 ( fL) Final Performing Location [facility] 0 - [address] [place] [address]
--- OUTSIDE RECORDS SUMMARY | 2023-10-10 03:11 | External Medical Summary ---
Author Name Unknown Address Unknown Organization [id number]:LAB[facility]ATORY [facility] [place] [address] [facility] [place] [address] Laboratory Report Ordering Provider Test Date Status NUHA DELACRUZ 06/30/2023 15:11:06 Final Observation Date Value Abnormality Reference (Units ) Status BUN 06/30/2023 15:11:06 17 6-20 (mg/dL) Final Creatinine 06/30/2023 15:11:06 1.0 0.5-1.0 (mg/dL) Final Glomerular filtration rate/1.73 sq M.predicted [Volume Rate/Area] in Serum, Plasma or Blood by Creatinine-based formula (CKD-EPI) 06/30/2023 15:11:06 66 >=60 (mL/min) Final eGFR is calculated based on the CKD-EPI 2020 equation SODIUM 06/30/2023 15:11:06 140 135-146 (m mol/L) Final Potassium 06/30/2023 15:11:06 4.2 3.5-5.1 (m mol/L) Final Cl 06/30/2023 15:11:06 103 98-107 (mm ol/L) Final CO2 06/30/2023 15:11:06 28 22-32 (mmo l/L) Final Anion gap 06/30/2023 15:11:06 9 7-15 (mmol /L) Final Glucose 06/30/2023 15:11:06 101 70-120 (mg /dL) Final Albumin 06/30/2023 15:11:06 4.1 3.8-5.0 (g /dL) Final AST (Aspartate aminotransferase) 06/30/2023 15:11:06 19 10-35 (U/L) Final Alk Phos 06/30/2023 15:11:06 121 35-130 (U/ L) Final Bilirubin, Total 06/30/2023 15:11:06 <0.2 <=1 .2 (mg/dL) Final Calcium 06/30/2023 15:11:06 9.2 8.4-10.2 ( mg/dL) Final Protein 06/30/2023 15:11:06 6.4 6.0-8.3 (g /dL) Final ALT (Alanine aminotransferase) 06/30/2023 15:11:06 22 10-35 (U/L) Final Performing Location [facility] [place] [address] [facility] [address]
--- OUTSIDE RECORDS SUMMARY | 2023-10-10 03:11 | External Medical Summary ---
Author Name Unknown Address Unknown Organization [id number]:[facility] - [address] [place]án [place] [address] Laboratory Report Ordering Provider Test Date Status NUHA DELACRUZ 06/30/2023 15:11:06 Final Observation Date Value Abnormality Reference (Units ) Status Phosphate 06/30/2023 15:11:06 3.0 2.5-4.8 (m g/dL) Final Performing Location [facility] [address] [facility] [address]
--- OUTSIDE RECORDS SUMMARY | 2023-10-10 03:11 | External Medical Summary ---
Author Name Unknown Address Unknown Organization [id number]:[facility] [place] - [address] [place] [address] Laboratory Report Ordering Provider Test Date Status NUHA DELACRUZ 06/30/2023 15:16:47 Final Normal: <30 mg/g creatinine< br/>High: 30-300 mg/g creatinine
Very High: >300 mg/g creatinine
Nephrotic: >2200 mg/g creatinine Observation Date Value Abnormality Reference (Units ) Status Albumin, Urine 06/30/2023 15:16:47 <1.20 (mg/dL) Final Creatinine, Urine 06/30/2023 15:16:47 48 (mg/dL) Final Albumin/Creatinine [Mass Ratio] in Urine 06/30/2023 15:16:47 <25 <30 (mg/g Creat) Final Performing Location [facility] [place] - [address] [place] [address]
--- OUTSIDE RECORDS SUMMARY | 2023-10-10 03:11 | External Medical Summary ---
Author Name Unknown Address Unknown Organization [id number][facility] [address] [place] [address] Laboratory Report Ordering Provider Test Date Status NUHA DELACRUZ 06/30/2023 15:11:06 Final Observation Date Value Abnormality Reference (Units ) Status SYNC LEUKOCYTES IN BLOOD BY AUTOMATED COUNT 06/30/2023 15:11:06 6.82 4.00-10.80 (K/uL) Final Segs 06/30/2023 15:11:06 64.2 40.0-75.0 (%) Final Lymphs % 06/30/2023 15:11:06 27.1 18.0-42.0 (%) Final Monos 06/30/2023 15:11:06 6.6 1.0-11.0 (%) Final Eosinophils 06/30/2023 15:11:06 1.5 0.0-6.0 (%) Final Basos 06/30/2023 15:11:06 0.6 0.0-2.0 (%) Final Absolute Segs 06/30/2023 15:11:06 4.38 1.80-7.70 (K/uL) Final Lymphs, absolute 06/30/2023 15:11:06 1.85 1.00-4.80 (K/ul) Final Monos, Abs 06/30/2023 15:11:06 0.45 0.00-1.10 (K/uL) Final Eos, Abs 06/30/2023 15:11:06 0.10 0.00-0.70 (K/uL) Final Basos, Abs 06/30/2023 15:11:06 0.04 0.00-0.20 (K/uL) Final Performing Location [facility] [address] [place] [id number]
--- OUTSIDE RECORDS SUMMARY | 2023-10-10 03:11 | External Medical Summary | Summary of Care ---
Author Name Unknown Organization [facility] Address [address] [facility] [address] Phone [phone] Care Team Providers Care Legal Referee Name Role Phone Chaparro Foster DO Primary Care Provider Reason for Referral * Ancillary Services (Within 10 days (routine)) - Authorized Specialty Diagnoses / Procedures Referred By Guerline baires Referred To Contact Gastroenterology Diagnoses Gastroesophageal reflux disease with esophagitis without hemorrhage Chaparro Foster DO [address] [place] [address] Referral ID Status Reason Start Date Expiration Date Visits Requested Visits Authorized [id number] Authorized Ancillary Services Required 3 [phone] Question Answer Referral Priority Within 10 days (routine) Where should this appointment be scheduled? [facility] Comments Upper Endoscopy ASGE Guidelines Upper abdominal symptoms that persist despite an appropriate trial of therapy ADDITIONAL INFORMATION 1. Is the patient on Coumadin? No 2. Is the patient on Pradaxa? No * Ancillary Services (Within 10 days (routine)) - Authorized Specialty Diagnoses / Procedures Referred By Guerline baires Referred To Contact Gastroenterology Diagnoses Special screening for malignant neoplasms, colon Chaparro Foster DO [address] [place] [address] Referral ID Status Reason Start Date Expiration Date Visits Requested Visits Authorized [id number] Authorized Ancillary Services Required 3 [phone] Question Answer Referral Priority Within 10 days (routine) Where should this appointment be scheduled? [facility] Comments ALERT: Do not order for pediatric patients (18 years or younger). Cancel off screen and order PEDS GASTROENTEROLOGY CONSULT (Type: 1 visit only-Evaluate and Treat) The following Pt. Instructions are available: - Gastro Colonoscopy Prep Instructions [[id number]] - Gastro Colonoscopy Prep Instructions ([place] Version) [[id number]] Go to the Pt. Instructions section within the Visit Navigator to access. Colonoscopy ASGE Guidelines: Postadenoma resection: greater than 10 adenomas (1yr intervals) ADDITIONAL INFORMATION 1. Is the patient on Coumadin? No 2. Is the patient on Pradaxa? No Reason for Visit * Reason Comments Return Visit Pt here for 6 mo ret urn. Seen at [facility] on 06/15/23 ER for possible GERD/esophagus pain and pressure, with increased gas, pt continues Omeprozole 20 mg , 1 daily to tomorrow, slight improvement with sx since starting med. Per Pt, CT at ER says gallbladder "sludgy". Need for endoscopy? Needs colonoscopy for September, as had polyps removed Sep 2021.Rash noted x 2.5 months inner groin and under bilat arms. Slight difference rashes, no improvement with antifungal creams to rashes.R knee. Encounter Details Date Type Department Care Team Description 06/30/2023 Office Visit [facility] [address] [facility] [place] [address] Chaparro Foster DO [address] [facility] [place] [address] Gastroesophageal reflux disease with esophagitis without hemorrhage*; Thrombocytopenia (HCC); Atherosclerosis of [place] coronary artery without angina pectoris, unspecified whether yuhaaviatam or transplanted heart; Hypothyroidism, unspecified type; Dyslipidemia, goal LDL below 160; Hypertensive kidney disease with stage 3a chronic kidney disease (HCC); Prediabetes; Special screening for malignant neoplasms, colon; Abdominal pain, epigastric; Tinea corporis; Tinea versicolor Allergies Active Allergy Reactions Severity Noted Date [...] Active Metoprolol Tartrate 50 MG Oral Tablet (Lopressor)Indicatio ns:Stress-induced cardiomyopathy TAKE ONE TABLET BY MOUTH TWICE A DAY. 180 Tablet 1 12/23/2022 4 Active Omeprazole 40 MG Oral Capsule Delayed Release (PriLOSEC)Indication s:Gastroesophageal reflux disease with esophagitis without hemorrhage Take 1 Capsule by mouth in the morning. 1 hour before the first meal of the day. 90 Capsule 3 06/30/2023 Active Levothyroxine Sodium 112 MCG Oral Tablet (Levoxyl) Take 1 Tablet by mouth daily first thing in the morning. 90 Tablet 3 06/30/2023 Active Clotrimazole-Betamet hasone 1-0.05 % External Cream (Lotrisone)Indicatio ns:Tinea corporis Apply topically to affected area 2 times a day for 28 days. or until healed. 90 g 5 06/30/2023 3 Active Fluconazole 150 MG Oral Tablet (Diflucan)Indication s:Tinea versicolor Take 2 tablets by mouth once weekly for 4 weeks. 8 Tablet 0 06/30/2023 Active Nutritional Supplement Oral Liquid Take by mouth. CBD oil 500 mg, 8 dropps taken by mouth twice daily per pt. 0 Active Levothyroxine Sodium 112 MCG Oral Tablet (Levoxyl) TAKE ONE TABLET BY MOUTH DAILY AT LEAST 30 MINUTES PRIOR TO FIRST MEAL OF THE DAY OR OTHER MEDICATIONS. 90 Tablet 1 12/23/2022 3 Discontinue d(Refill) documented as of this encounter (statuses as of 06/30/2023) Active Problems Problem Noted Date Atherosclerosis of [place]aviat[place] coronary arter y without angina pectoris 06/30/2023 Hypertensive kidney disease with stage 3 a chronic kidney disease 12/09/2022 Essential (primary) hypertension 022 Gastroesophageal reflux disease with eso phagitis 05/07/2022 Thrombocytopenia 08/27/2021 Old [place] (myocardial infarction) 1 Chronic kidney disease, stage [...] Influenza, Split, I IV3, With Preserve, Inj 07/27/2013,06/25/2012,06/27/2011,07/30,08/29/2008,07/25/2005,07/26/2003 ,06/30/2002 TD - Tetanus/Diptheria (ADULT) 07/26/2003 TDAP (age 10 and older)(Boostrix) 09/04/2020 TDAP [...] on file documented as of this encounter Last Filed Vital Signs Vital Sign Reading Time Taken Comments Blood Pressure 112/66 06/30/2023 2:12 PM EDT Pulse 72 06/30/2023 2:12 PM EDT Temperature 35.8 C (96.4 F) 06/30/2023 2:12 PM ED T Respiratory Rate 16 06/30/2023 2:12 PM EDT Oxygen Saturation 98% 06/30/2023 2:12 PM EDT Inhaled Oxygen Concentration - - Weight 107.6 kg (237 lb 3 oz) 06/30/2023 2:12 PM EDT Height - - Body Mass Index 36.32 03/19/2023 12:48 PM EDT documented in this encounter Progress Notes * Chaparro Angie Cristian, DO - 06/30/2023 2:16 PM EDT Images from the original note were not included. Assessment and Plan Gastroesophageal reflux disease with esophagitis without hemorrhage Increase dose to 40mg as she is improving but Not quickly - will see if we can increase the time line - Omeprazole 40 MG Oral Capsule Delayed Release (PriLOSEC); Take 1 Capsule by mouth in the morning.1 hour before the first meal of the day. - UPPER ENDOSCOPY GI REFERRAL OP Thrombocytopenia (HCC) Atherosclerosis of [place] coronary artery without angina pectoris, unspecified whether yuhaaviatam or transplanted heart Hypothyroidism, unspecified type - TSH WITH FREE T4 IF INDICATED; Future Dyslipidemia, goal LDL below 160 - COMPREHENSIVE METABOLIC PANEL; Future - LIPID PANEL WITH DIRECT LDL IF TG IS HIGH; Future Hypertensive kidney disease with stage 3a chronic kidney disease (HCC) - CBC WITH WBC DIFFERENTIAL; Future - COMPREHENSIVE METABOLIC PANEL; Future - ALBUMIN / CREATININE RATIO, URINE; Future - PHOSPHORUS Prediabetes - HEMOGLOBIN A1C; Future Special screening for malignant neoplasms, colon - COLONOSCOPY, GI REFERRAL OP Abdominal pain, epigastric - GGTP; Future Tinea corporis - Clotrimazole-Betamethasone 1-0.05 % External Cream (Lotrisone); Apply topically to affected area 2 times a day for 28 days. or until healed. Tinea versicolor - Fluconazole 150 MG Oral Tablet (Diflucan); Take 2 tablets by mouth once weekly for 4 weeks. History of Present Illness Jennifer Murillo is a 67 year old female that presents for Return Visit (Pt here for 6 mo return. Seen at [facility] on 06/15/23 ER for possible GERD/esophagus pain and pressure, with increased gas, pt continues Omeprozole 20 mg , 1 daily to tomorrow, slight improvement with sx since startingmed. Per Pt, CT at ER says gallbladder "sludgy". Need for endoscopy? Needs colonoscopy for September, as had polyps removed Sep 2021./Rash noted x 2.5 months inner groin and under bilat arms. Slight difference rashes, no improvement with antifungal creams to rashes./R knee. ) Presents today in f/u Hasn't been in for a year B/c she had health issues come up That prevented her from making it in Has rash that she would like to discuss Compliant with meds Recent issue with GERD On omeprazole and improving slowly Physical Exam Vitals: 06/30/23 1412 Temp: 35.8 C (96.4 F) Pulse: 72 Resp: 16 SpO2: 98% BP: 112/66 Physical Exam Constitutional: Appearance: Normal appearance. HENT: Head: Normocephalic and atraumatic. Eyes: Extraocular Movements: Extraocular movements intact. Pupils: Pupils are equal, round, and reactive to light. Cardiovascular: Rate and Rhythm: Normal rate and regular rhythm. Pulmonary: Effort: Pulmonary effort is normal. Breath sounds: Normal breath sounds. Skin: Findings: Rash present. Comments: Suspect tinea versicolor to under arms and groin? Will treat as suspected and consider further f/u testing if indicated Neurological: General: No focal deficit present. Mental Status: She is alert and oriented to person, place, and time. Psychiatric: Mood and Affect: Mood normal. Behavior: Behavior normal. Wrap-Up Follow Up: Return in about 6 months (around 12/30/2023). Time: Total time today was 45 minutes excluding any time spent in the performance of separately billed services. documented in this encounter Plan of Treatment Upcoming Encounters Date Type Specialty Care Team Description 10/31/2023 Office Visit Dermatology Flower Thomson MD [address] [place] [address], [place] [address] 11/13/2023 Hospital Encounter Endoscopy Nery Panchal MD [address] [place] [address] 11/13/2023 Surgery Endoscopy Nery Panchal MD [address] [place] [address] COLONOSCOPY FLEXIBLE PROXIMAL DIAGNOSTIC 02/24/2024 Office Visit Family Medicine Cristian Chaparro Sherronaldo, DO [address] [place] [address] Scheduled Orders Name Type Priority Associated Diagnoses Orde r Schedule CBC WITH WBC DIFFERENTIAL Lab Routine Hypertensive kidney disease with stage 3a chronic kidney disease (HCC) Expected: 06/30/2023 (Approximate), Expires: 06/30/2024 COMPREHENSIVE METABOLIC PANEL Lab Routine Dyslipidemia, goal LDL below 160 Hypertensive kidney disease with stage 3a chronic kidney disease (HCC) Expected: 06/30/2023 (Approximate), Expires: 06/30/2024 HEMOGLOBIN A1C Lab Routine Prediabetes Expected: 06/30/2023 (Approximate), Expires: 06/30/2024 ALBUMIN / CREATININE RATIO, URINE Lab Routine Hypertensive kidney disease with stage 3a chronic kidney disease (HCC) Expected: 06/30/2023 (Approximate), Expires: 06/30/2024 LIPID PANEL WITH DIRECT LDL IF TG IS HIGH Lab Routine Dyslipidemia, goal LDL below 160 Expected: 06/30/2023, Expires: 06/30/2024 TSH WITH FREE T4 IF INDICATED Lab Routine Hypothyroidism, unspecified type Expected: 06/30/2023 (Approximate), Expires: 06/29/2024 PHOSPHORUS Lab Routine Hypertensive kidney disease with stage 3a chronic kidney disease (HCC) Ordered: 06/30/2023 GGTP Lab Routine Abdominal pain, epigastric Expected: 06/30/2023 (Approximate), Expires: 06/29/2024 Scheduled Procedures Name Priority Associated Diagnoses Date/Ti me COLONOSCOPY FLEXIBLE PROXIMA L DIAGNOSTIC History of colon polyps Gastroesophageal reflux disease, unspecified whether esophagitis present 11/13/2023 1:30 PM EST ESOPHAGOGASTRODUODENOSCOPY ( EGD), FLEXIBLE, TRANSORAL, DIAGNOSTIC History of colon polyps Gastroesophageal reflux disease, unspecified whether esophagitis present 11/13/2023 1:30 PM EST Scheduled Referrals Name Type Priority Associated Diagnoses Orde r Schedule COLONOSCOPY, GI REFERRAL OP Referral Within 10 days (routine) Special screening for malignant neoplasms, colon Ordered: 06/30/2023 UPPER ENDOSCOPY GI REFERRAL OP Referral Within 10 days (routine) Gastroesophageal reflux disease with esophagitis without hemorrhage Ordered: 06/30/2023 Health Maintenance Due Date Last Done Comments DXA Scan 1955 COVID-19 Vaccine (#1) 04/25/1956 Pneumococcal Vaccine: 65+ Years (1 - PCV) 1961 Albumin/Creatinine Ratio 03/08/2022 03/08/2021, 07/0 04/2019 GFR 09/28/2022 03/28/2022, 08/15, 08/08/2021, Additional history exists CKD HGB USE SMARTSET 69946 03/28/202303/28, 03/28/2022, 08/30/2021, Additional history exists CKD PHOS USE SMARTSET 50052 03/28/2023 03/28/2022, 0 03/08/2021 HbA1c 03/28/2023 03/28/2022, [...] this encounter Medical Devices Implanted Type Area Weaver Apprentice Device Identifier Shelf Expiration Date Model / Serial / Lot Sureclip 16mm 235cm - [id number] Implanted:Qty: 1 on 10/01/2022 by Nery Panchal MD at ENDOSCOPY [facility] Colon MICRO TECH ENDOSCOPY 11/22/2024 [id number] / / documented as of this encounter Visit Diagnoses Diagnosis Gastroesophageal reflux disease with esophagitis without hemorrhage- Primary Thrombocytopenia (HCC) Thrombocytopenia, unspecified Atherosclerosis of yuhaaviat[place] coronary artery without angina pectoris, unspecified whether yuhaaviatam or transplanted heart Hypothyroidism, unspecified type Dyslipidemia, goal LDL below 160 Other and unspecified hyperlipidemia Hypertensive kidney disease with stage 3a chronic kidney disease (HCC) Prediabetes Other abnormal glucose Special screening for malignant neoplasms, colon Abdominal pain, epigastric Tinea corporis Dermatophytosis of the body Tinea versicolor Pityriasis versicolor History of colon polyps Personal history of colonic polyps Gastroesophageal reflux disease, unspecified whether esophagitis present documented in this encounter Advance Directives Documents on File Type Date Recorded Patient University Relations Recruiter Expl anation Advance Directives and Living Will 01/31/2020 ADVANCE DIRECTIVE / LIVING WILL -DURABLE HEALTH CARE POA & LIVING WILL Care Teams Legal Referee Relationship Specialty Start Date End Date Chaparro Foster DO [address] [place] [address] PCP - General Family Medicine 08/24/18 documented as of this encounter
--- OUTSIDE RECORDS SUMMARY | 2023-10-10 03:11 | External Medical Summary | Summary of Care ---
Author Name Unknown Organization [facility] Address [address] [facility] [address] Phone [phone] Care Team Providers Care Fruit Packer Name Role Phone Chaparro Foster DO Primary Care Provider Reason for Referral * Ancillary Services (Within 10 days (routine)) - Authorized Specialty Diagnoses / Procedures Referred By Guerline baires Referred To Contact Gastroenterology Diagnoses Gastroesophageal reflux disease with esophagitis without hemorrhage Chaparro Foster DO [address] [place] [address] Referral ID Status Reason Start Date Expiration Date Visits Requested Visits Authorized [id number] Authorized Ancillary Services Required 3 [phone] [...] colon Chaparro Foster DO [address] [place] [address] Referral ID Status Reason Start Date Expiration Date Visits Requested Visits Authorized [id number] Authorized Ancillary Services Required 3 [phone] Question Answer Referral Priority Within 10 days (routine) Where should this appointment be scheduled? [facility] Comments ALERT: Do not order for pediatric patients (18 years or younger). Cancel off screen and order PEDS GASTROENTEROLOGY CONSULT (Type: 1 visit only-Evaluate and Treat) The following Pt. Instructions are available: - Gastro Colonoscopy Prep Instructions [[id number]] - Gastro Colonoscopy Prep Instructions (Finnish Version) [[id number]] Go to the Pt. Instructions section within the Visit Navigator to access. Colonoscopy ASGE Guidelines: Postadenoma resection: greater than 10 adenomas (1yr intervals) ADDITIONAL INFORMATION 1. Is the patient on Coumadin? No 2. Is the patient on Pradaxa? No Reason for Visit * Reason Comments Return Visit Pt here for 6 mo ret urn. Seen at [facility] on 06/15/23 ER for possible GERD/esophagus [...] Department Care Team Description 06/30/2023 Office Visit [facility] [address] [facility] [place] [address] Chaparro Foster DO [address] [facility] [place] [address] Gastroesophageal reflux disease with esophagitis without hemorrhage*; Thrombocytopenia (HCC); Atherosclerosis of [place] coronary artery without angina pectoris, unspecified whether [place] or transplanted heart; Hypothyroidism, unspecified type; Dyslipidemia, [...] Active Problems Problem Noted Date Atherosclerosis of [place] coronary arter y without angina pectoris 06/30/2023 Hypertensive kidney disease with stage 3 a chronic kidney disease 12/09/2022 Essential (primary) hypertension 022 Gastroesophageal reflux disease with eso phagitis 05/07/2022 Thrombocytopenia 08/27/2021 Old [place] (myocardial infarction) 1 Chronic kidney disease, stage [...] GI REFERRAL OP Thrombocytopenia (HCC) Atherosclerosis of [place] coronary artery without angina pectoris, unspecified whether [place] or transplanted heart Hypothyroidism, unspecified type - [...] here for 6 mo return. Seen at [facility] on 06/15/23 ER for possible GERD/esophagus [...] Encounters Date Type Specialty Care Team Description 06/30/2023 [facility] [address] Arrived 10/31/2023 Office Visit Dermatology Flower Thomson MD [address] [place] [address] 11/13/2023 Hospital Encounter Endoscopy Nery Panchal MD [address] [facility] [place] [address] 11/13/2023 Surgery Endoscopy Nery Panchal MD [address] [place] [address] COLONOSCOPY FLEXIBLE PROXIMAL DIAGNOSTIC 02/24/2024 Office Visit Family [facility] Cristian Chaparro AdamsDO [address] [place] [address] Scheduled Orders Name Type Priority Associated Diagnoses [...] Additional history exists CKD HGB USE SMARTSET 51904 03/28/202303/28, 03/28/2022, 08/30/2021, Additional history exists CKD PHOS USE SMARTSET 85957 03/28/2023 03/28/2022, 0 03/08/2021 HbA1c 03/28/2023 03/28/2022, 08/15, 03/08/2021, Additional history exists TSH 03/28/2023 03/28/2022, 08/15, 03/08/2021, Additional history exists Depression Screening 05/07/2023 05/07/2022 Influenza Vaccine (FLU shot) (#1) 2023 06/27/2020, 06/28/2019, 06/22/2018, Additional history exists COLONOSCOPY-ANNUAL AGES 18-100 10/01/2023 10/01/2022, 10/01/2022, 03/11/2017, Additional history exists Mammogram 02/28/2024 02/27/2023, 0209/2021, 10/30/2020, Additional history exists Lipid Panel 03/28/2027 [...] this encounter Medical Devices Implanted Type Area Lollypop Machine Operator Device Identifier Shelf Expiration Date Model / Serial / Lot Sureclip 16mm 235cm - [id number] Implanted:Qty: 1 on 10/01/2022 by Nery Panchal MD at ENDOSCOPY [facility] Colon MICRO TECH ENDOSCOPY 11/22/2024 [id number] / / documented as of this encounter Visit Diagnoses Diagnosis Gastroesophageal reflux disease with esophagitis without hemorrhage- Primary Thrombocytopenia (HCC) Thrombocytopenia, unspecified Atherosclerosis of [place] coronary artery without angina pectoris, unspecified whether [place] or transplanted heart Hypothyroidism, unspecified type Dyslipidemia, [...] Documents on File Type Date Recorded Patient Square Cutter Expl anation Advance Directives and Living Will 01/31/2020 ADVANCE DIRECTIVE / LIVING WILL -DURABLE HEALTH CARE POA & LIVING WILL Care Teams Fruit Packer Relationship Specialty Start Date End Date Chaparro Foster DO [address] [place] [address] PCP - General Family Medicine 08/24/18 documented as of this encounter
--- OUTSIDE RECORDS SUMMARY | 2023-10-10 03:11 | External Medical Summary | Summary of Care ---
Author Name Unknown Organization [facility] Address [address] [facility] [place] [address] Phone [phone] Care Team Providers Care Advertising Account Executive Name Role Phone Jayme Foster DO Primary Care Provider Reason for Visit * Reason Comments Medication Refill Encounter Details Date Type Department Care Team (Late st Contact Info) Description 07/15/2023 Refill Family Practice [facility] [address] [place] [address] Jayme Foster DO [address] [place] [address] Stress-induced cardiomyopathy Allergies Active Allergy Reactions Criticality Noted Date Comments Amoxicillin 08/12/2015 rash Clindamycin Hcl Rash Medium 07/20/2008 Levofloxacin Other (Please comment) Low 07/15/2022 Joint pains documented as of this encounter (statuses as of 07/15/2023) Medications Medication Sig Dispensed Refills Start Date [...] and 1 Capsule before bedtime. 0 Active Omeprazole 40 MG Oral Capsule Delayed [...] mouth twice daily per pt. 0 Active Metoprolol Tartrate 50 MG Oral Tablet (Lopressor)Indicatio ns:Stress-induced cardiomyopathy TAKE ONE TABLET BY MOUTH TWICE A DAY. 180 Tablet 1 07/15/2023 4 Active Metoprolol Tartrate 50 MG Oral Tablet (Lopressor)Indicatio ns:Stress-induced cardiomyopathy TAKE ONE TABLET BY MOUTH TWICE A DAY. 180 Tablet 1 12/23/2022 3 Discontinue d(Refill) documented as of this encounter (statuses as of 07/15/2023) Active Problems Problem Noted Date Diagnosed Date Atherosclerosis of elim ira co ronary artery without angina pectoris 06/30/2023 Hypertensive kidney disease with stage 3a chronic kidney disease 12/09/2022 Essential (primary) hypertension 05/07/2022 Gastroesophageal reflux disease with esophagitis 05/07/2022 Thrombocytopenia 08/27/2021 Old PR (myocardial infarction) 03/08/2021 Chronic kidney disease, stage 3a 09/25/2020 Overview: Per CKD protocol Primary localized osteoarthrosis of right lower leg 08/24/2018 Numbness and tingling in left hand 08/24/2018 Prediabetes 10/28/2017 Overview: Per Prediabetes protocol #1 Transient left ventricular apical ballooning syn drome 2012 Dyslipidemia, goal LDL below 160 06/16/2012 OBESITY, BMI 30-34 (SEE ACTUAL BMI) 12/07/2009 Overview: Per Obesity Taxonomy Chronic sinusitis 03/16/2009 Family history of ischemic heart disease 007 Other allergic rhinitis 02/13/2007 Overview: ICD-10 update of inactive term Hypothyroidism 02/13/2007 FAMILY HX-GI MALIGNANCY 08/28/2005 documented as of this encounter (statuses as of 07/15/2023) Resolved Problems Problem Noted Date Diagnosed Date Resolved Date Acute respiratory distress syndrome 08/27/2021 04/25/2022 Screening for diabetes mellitus 08/24/2018 09/04/2020 Myocardial infarction, apical 09/03/2012 2012 Acute bronchitis, complicated 11/07/2009 09/11/2012 Dyslipidemia, goal to be determined 08/31/2009 06/16/2012 Overview: Per Lipid Taxonomy. Dyslipidemia, goal LDL below 160 04/05/2008 08/31/2009 Overview: Per Lipid Taxonomy. OBESITY, UNSPECIFIED 09/04/2004 010 Overview: Per Obesity Taxonomy FAMILY HX-GI MALIGNANCY 02/02/2002 06/0 09/2006 Reflux esophagitis 02/02/2002 3 documented as of this encounter (statuses as of 07/15/2023) Immunizations Name Administration Dates Next Due SEASONAL [...] drink = 0.6 oz pur e alcohol) PHQ-2 Answer Date Recorded PHQ Adult Total Score 0 06/30/2023 Hunger Vital Sign Answer Date Recorded Worried About Running Out of Food in the Last Ye ar Never true 08/30/2019 Ran Out of Food in the Last Year Never true 08/30/2019 Sex and Gender Information Value Date Recorded Sex Assigned at Female 09/04/2020 9:29 AM EST Gender Identity Female 09/04/2020 9:29 AM EST Sexual Orientation Straight 09/04/2020 9: 29 AM EST Job Start Date Occupation Industry Not on file Not on file Not on file documented as of this encounter Miscellaneous Notes * Telephone Encounter - Clare Stock RPh - 07/15/2023 6:05 AM EDTSigned Prescriptions: Disp Refills Metoprolol Tartrate 50 MG Oral Tablet (Lop*180 Ta*1 Sig: TAKE ONE TABLET BY MOUTH TWICE A DAY.Authorizing Provider: JAYME FOSTER User: CLARE STOCK documented in this encounter Plan of Treatment Upcoming Encounters Date Type Department Care Team (Latest Contact Info) Description 10/31/2023 10:15 AM EST Office Visit [facility]ermatology [facility] [address] [place] [address] Flower Thomson MD [address] [place] [address] 11/13/2023 1:30 PM EST Hospital Encounter [facility], Endoscopy Room [facility] [address] [place] [phone] Nery Panchal MD [address] [place] [address] 11/13/2023 1:30 PM EST - 11/13/2023 2:30 PM EST Surgery ENDO [facility], Endoscopy Room [facility] [address] [place] [phone] Nery Panchal MD [address] [place] [address] COLONOSCOPY FLEXIBLE PROXIMAL DIAGNOSTIC 02/24/2024 3:00 PM EDT Office Visit [facility] [address] [place] [address] Jayme Foster DO [address] [place] [address] Scheduled Procedures Name Priority Associated Diagnoses Date/Ti [...] Vaccine: 65+ Years (1 - PCV) 1961 Influenza Vaccine (FLU shot) (#1) 2023 06/27/2020, 06/28/2019, 06/22/2018, Additional history exists COLONOSCOPY-ANNUAL AGES 18-100 10/01/2023 10/01/2022, 10/01/2022, 03/11/2017, Additional history exists GFR 12/30/2023 06/30/2023, 03/15, 08/30/2021, Additional history exists Mammogram 02/28/2024 02/27/2023, 10/17, 10/30/2020, Additional history exists Albumin/Creatinine Ratio 06/30/2024 023, 03/08/2021, 03/22/2019 CKD HGB USE SMARTSET 16994 06/30/202406/30, 06/30/2023, 03/28/2022, Additional history exists CKD PHOS USE SMARTSET 06085 06/30/202406/15, 03/28/2022, 03/08/2021 Depression Screening 06/30/2024 06/30/2023 HbA1c 06/30/2024 06/30/2023, 03/15, 08/30/2021, Additional history exists TSH 06/30/2024 06/30/2023, 03/15, 08/30/2021, Additional history exists DTaP,Tdap,and Td Vaccines (3 [...] this encounter Medical Devices Implanted Type Area Archivist Political History Device Identifier Shelf Expiration Date Model / Serial / Lot Sureclip 16mm 235cm - [id number] Implanted:Qty: 1 on 10/01/2022 by Nery Panchal MD at ENDOSCOPY [facility] Colon MICRO TECH ENDOSCOPY 11/22/2024 [id number] / / documented as of this encounter Visit Diagnoses Diagnosis Stress-induced cardiomyopathy Takotsubo syndrome History of colon polyps Personal history of colonic polyps Gastroesophageal reflux disease, unspecified whether esophagitis present documented in this encounter Advance Directives Documents on File Type Date Recorded 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
--- OUTSIDE RECORDS SUMMARY | 2023-10-10 03:11 | External Medical Summary ---
Author Name Unknown Address Unknown Organization [id number]:[facility] [place] [address] [place] [address] Laboratory Report Ordering Provider Test Date Status NUHA DELACRUZ 06/30/2023 15:11:06 Final Observation Date Value Abnormality Reference (Units ) Status TSH 06/30/2023 15:11:06 1.41 0.27-4.20 (uIU/mL) Final Performing Location LAB[facility]ORY [facility] - [address] [place] [address]
--- OUTSIDE RECORDS SUMMARY | 2023-10-10 03:11 | External Medical Summary ---
Author Name Unknown Address Unknown Organization K01:[facility] [place] [address] [facility] [address] Laboratory Report Ordering Provider Test Date Status NUHA DELACRUZ 06/30/2023 15:11:06 Final Observation Date Value Abnormality Reference (Units ) Status HbA1C 06/30/2023 15:11:06 6.0 Above high normal 4. 0-5.6 (%) Final The use of HbA1c to monitor glycemic status is based on normal hemoglobin and HbA composition. This test should not be used in patients with abnormal hemoglobin that affects the half life of the red blood cell or the in vivo glycation rates. Glucose, estimated average 06/30/2023 15:11:06 126 Above high normal <126 (mg/dL) Dylan nation Performing Location [facility] [place] [address] [facility] [address]
--- OUTSIDE RECORDS SUMMARY | 2023-10-10 03:11 | External Medical Summary ---
Author Name Unknown Address Unknown Organization K01:[facility] - [address] [place] [address] Laboratory Report Ordering Provider Test Date Status NUHA DELACRUZ 06/30/2023 15:11:06 Final Observation Date Value Abnormality Reference (Units ) Status GGT 06/30/2023 15:11:06 10 <=40 (U/L) Final Performing Location [facility] - [address] [place] [address]
--- OUTSIDE RECORDS SUMMARY | 2023-10-10 03:11 | External Medical Summary | Summary of Care ---
Author Name Unknown Organization [facility] Address [address] [facility] [address] Phone [phone] Care Team Providers Care Gas Furnace Installer Name Role Phone Chaparro Foster Primary Care Provider Reason for Visit * Reason Onset Date Comments Appointment 09/19/2023 Encounter Details Date Type Department Care Team (Late st Contact Info) Description 09/19/2023 Telephone Dermatology [facility] [place] [address] [place] [address] [facility]lower Thomson [facility] [address] [facility] [address] Appointment Allergies Active Allergy Reactions Criticality Noted Date Comments Amoxicillin 08/12/2015 rash Clindamycin Hcl Rash Medium 07/20/2008 Levofloxacin Other (Please comment) Low 07/15/2022 Joint pains documented as of this encounter (statuses as of 09/19/2023) Medications Medication Sig Dispensed Refills Start Date [...] the morning. 90 Tablet 3 06/30/2023 Active Fluconazole 150 MG Oral Tablet (Diflucan)Indications [...] TWICE A DAY. 180 Tablet 1 07/15/2023 07/14/2024 Active documented as of this encounter (statuses as of 09/19/2023) Active Problems Problem Noted Date Diagnosed Date Atherosclerosis of [place] ira co ronary artery without angina pectoris 06/30/2023 Hypertensive kidney disease with stage 3a chronic kidney disease 12/09/2022 Essential (primary) hypertension 05/07/2022 Gastroesophageal reflux disease with esophagitis 05/07/2022 Thrombocytopenia 08/27/2021 Old [place] (myocardial infarction) 03/08/2021 Chronic kidney disease, stage [...] as of this encounter (statuses as of 09/19/2023) Resolved Problems Problem Noted Date Diagnosed Date [...] Per Obesity Taxonomy FAMILY HX-GI MALIGNANCY 02/02/2002 06/09/2006 Reflux esophagitis 02/02/2002 3 documented as of this encounter (statuses as of 09/19/2023) Immunizations Name Administration Dates Next Due Seasonal Influenza, PF, 6 M & above, IM , (FluLaval or Fluzone) 06/27/2020,06/28/2019,06/22/2018 Seasonal Influenza, Quadriva lent, No Preserve, [...] encounter Miscellaneous Notes * Telephone Encounter - Destiney Diaz OSA - 09/19/2023 3:28 PM EST Called patient offered [place] but pt wanted to be seen at [facility]. Scheduled appt in March. * Telephone Encounter - Sujata Werner OSA - 09/19/2023 2:46 PM EST Patient called to reschedule appt. Please call patient documented in this encounter Plan of Treatment Upcoming Encounters Date Type Department Care Team (Latest Contact Info) Description 11/13/2023 1:30 PM EST Hospital Encounter [facility], Endoscopy Room [facility] [address] [place] [phone] Nery Panchal MD [address] [place] [address] 11/13/2023 1:30 PM EST - 11/13/2023 2:30 PM EST Surgery [facility], Endoscopy Room [facility] [address] [place] [phone] Nery Panchal MD [address] [place] [address] COLONOSCOPY FLEXIBLE PROXIMAL DIAGNOSTIC 02/24/2024 3:00 PM EDT Office Visit Family [facility] [address] [place] [address] Chaparro Foster DO [address] [place] [address] 04/01/2024 1:20 PM EDT Office Visit Dermatology [facility] [place] [address] [place] [address] Aurelia Monreal PA-C [address] [place] [phone] Scheduled Procedures Name Priority Associated Diagnoses Date/Ti [...] 023, 03/08/2021, 03/22/2019 CKD HGB USE SMARTSET 46124 06/30/202406/30, 06/30/2023, 03/28/2022, Additional history exists CKD PHOS USE SMARTSET 94041 06/30/202406/15, 03/28/2022, 03/08/2021 Depression Screening 06/30/2024 06/30/2023 [...] this encounter Medical Devices Implanted Type Area Data Reduction Technician Device Identifier Shelf Expiration Date Model / Serial / Lot Sureclip 16mm 235cm - [id number] Implanted:Qty: 1 on 10/01/2022 by Nery Panchal MD at ENDOSCOPY [facility] Colon MICRO TECH ENDOSCOPY 11/22/2024 [id number] / / documented as of this encounter Advance Directives Documents on File Type Date Recorded 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
[2023-10-10] MEDS: METOPROLOL TARTRATE 25 MG TAB PO SCH ×2 (08:15→22:09)
[2023-10-10] MEDS: guaiFENesin 600 MG TABCR PO SCH ×2 (08:15→22:08)
[2023-10-10] MEDS: ASPIRIN 81 MG ECTAB PO SCH (08:15)
[2023-10-10] MEDS: ENOXAPARIN INJ 40 MG/0.4 ML SYR SQ SCH ×2 (08:15→08:17)
[2023-10-10] MEDS: LEVOTHYROXINE SODIUM 112 MCG TABLET PO SCH (08:15)
[2023-10-10] MEDS: DOXYCYCLINE HYCLATE 100 MG CAP PO SCH ×2 (08:15→22:09)
[2023-10-10 08:44] LABS: Hematocrit (blood only) 40.1 % (37.0-47.0); Hemoglobin 13.2 g/dl (12.0-16.0); Mean Corpuscular Hemoglobin 30.3 pg (25.0-34.0); Mean Corpuscular Hgb Conc 32.9 g/dL (32.0-36.0); Mean Platelet Volume 9.8 fL (9.4-12.4); Platelet Count 338 K/uL (130-400); RDW Coefficient of Variation 13.2 % (11.5-14.5); RDW Standard Deviation 45.1 fL (36.4-46.3); Red Blood Count 4.36 M/uL (4.20-5.40); White Blood Count 15.15 K/ul (4.8-10.8)
[2023-10-10 08:58] LABS: BUN Creatinine Ratio 14.3 (10-20); Calcium 9.3 mg/dl (8.6-10.3); Est GFR (African American) 92.6 ml/min; Est GFR (Non-African American) 79.9 ml/min; Potassium 4.5 mmol/L (3.5-5.1)
[2023-10-10 09:04] LABS: Basophils # (auto) 0.04 K/uL (0.00-0.20); Basophils % (auto) 0.3 %; Eosinophils # (auto) 0.01 K/uL (0.00-0.50); Eosinophils % (auto) 0.1 %; Immature Granulocytes # (auto) 0.13 K/uL (0.01-0.20); Immature Granulocytes % (auto) 0.9 %; Lymphocytes # (auto) 0.81 K/uL (1.20-3.40); Lymphocytes % (auto) 5.3 %; Monocytes # (auto) 0.13 K/uL (0.11-0.59); Monocytes % (auto) 0.9 %; Neutrophils # (auto) 14.03 K/uL (1.40-6.50); Neutrophils % (auto) 92.5 %
[2023-10-10] MEDS ORDERED: OPTIRAY 320 125ml IV ONE (09:23)
[2023-10-10] MEDS ORDERED: CEFEPIME 2,000 MG in SYRINGE 0 ML IV SCH (09:30)
--- NOTE | 2023-10-10 09:33 | CT Scan Report ---
CT angio chest PE protocol CLINICAL HISTORY: PE TECHNIQUE: Multidetector row helical CT of the chest was performed with angiographic protocol. Higuera l and sagittal reformations were obtained. Coronal and sagittal MIPS were obtained from the axial karlee a set and were submitted for review. Automated dose lowering techniques and/or adjustment according to patient size were utilized for this exam. CT DOSE: 898.54 mGy.cm Comparison: Comparison is made to CTA chest 07/08/2022 FINDINGS: Lungs and pleura: Diffuse groundglass and consolidative opacities and bronchial wall thickening are s een. These favor the upper lungs. Heart and pericardium: Heart size is normal. No pericardial effusion. Vessels: No evidence of pulmonary embolism. Mediastinum and kevin: Subcentimeter lymph nodes are seen. Chest wall and lower neck: Unremarkable. Abdomen: Unremarkable. Bones: Degenerative changes in the thoracic spine. There is an irregular calcific density in the corrine on of the right subscapularis musculature. This is unchanged from prior exam. IMPRESSION: 1. No pulmonary embolus. 2. Diffuse groundglass and consolidative opacities compatible with pneumonia. Reactive subcentimeter lymph nodes. Bronchial wall thickening is also likely infectious/inflammatory in origin. ACT 112: Negative or not required by law. Electronically signed by: Alfie Paige M.D. 10/10/2023 9:32 AM
--- NOTE | 2023-10-10 15:51 | Communication Note ---
Date of Service: October 10, 2023 Evaluated in ED. Reports mobilizing a bit better overall and feeling much improved with abx. Denies any wheezing or productive cough. Denies any fevers. History of COVID pneumonitis and ARDS in 2020. CXR with diffuse airspace opacities. CTA with GGO and bronchial wall thickening, no embolus #Community Acquired Pneumonia -Biofire negative -Transitioned to cefepime for pseudomonal coverage given notable O2 requirment this am, however, upon evaluation, patient notes that may have been related to sleep as clinically much improved, will resume CTX plan to deescalate as able/clinical improvement given notable clinical improvement -Continue doxycycline for atypical coverage -If continued clinical improvement, consider transition to PO -Flutter valve, symptomatic management #Leukocytosis -On admission likely due to infection, increase this am likely secondary to solumedrol -CTM and reassess -Repeat cbc in am
--- NOTE | 2023-10-10 17:23 | Electrocardiogram Report ---
Test Reason : Blood Pressure : / mmHG Vent. Rate : 088 BPM Atrial Rate : 088 BPM P-R Int : 158 ms QRS Dur : 098 ms QT Int : 374 ms P-R-T Axes : 049 -32 018 degrees QTc Int : 452 ms Poor data quality, interpretation may be adversely affected Normal sinus rhythm Left axis deviation Poor R wave progression, consider anterior MD vs. lead placement vs. LVH Moderate voltage criteria for LVH, may be normal variant Abnormal ECG When compared with ECG of 15-JUN-2023 15:04, Nonspecific T wave abnormality has replaced inverted T waves in Inferior leads Confirmed by Jamaal Bledsoe ([id number]) on 10/10/2023 5:23:02 PM Referred By: REFERRED SELF Confirmed By:Magno Bledsoe
[2023-10-10] MEDS: cefTRIAXone SODIUM 2,000 MG in DEXTROSE 5 % MINI-B 50 ML IV SCH (22:12)
[2023-10-11 06:29] LABS: Hematocrit (blood only) 36.5 % (37.0-47.0); Hemoglobin 11.6 g/dl (12.0-16.0); Mean Corpuscular Hemoglobin 29.7 pg (25.0-34.0); Mean Corpuscular Hgb Conc 31.8 g/dL (32.0-36.0); Mean Corpuscular Volume 93.6 fL (80.0-100.0); Mean Platelet Volume 9.8 fL (9.4-12.4); Platelet Count 323 K/uL (130-400); RDW Coefficient of Variation 13.4 % (11.5-14.5); White Blood Count 10.43 K/ul (4.8-10.8)
[2023-10-11] MEDS: LEVOTHYROXINE SODIUM 112 MCG TABLET PO SCH (06:31)
[2023-10-11] MEDS: ACETAMINOPHEN 325 MG TAB PO PRN (06:31)
[2023-10-11 06:42] LABS: BUN Creatinine Ratio 17.8 (10-20); Calcium 8.9 mg/dl (8.6-10.3); Creatinine Clr Calc Pharmacy 78.9 ml/min; Est GFR (African American) 76.7 ml/min; Est GFR (Non-African American) 66.2 ml/min; Magnesium 1.9 mg/dl (1.7-2.4); Phosphorus 3.9 mg/dl (2.5-4.9); Potassium 4.3 mmol/L (3.5-5.1)
[2023-10-11 07:25] LABS: Estimated Average Glucose 126 mg/dl
[2023-10-11] MEDS: DOXYCYCLINE HYCLATE 100 MG CAP PO SCH ×2 (08:59→20:27)
[2023-10-11] MEDS: METOPROLOL TARTRATE 25 MG TAB PO SCH ×2 (08:59→20:27)
[2023-10-11] MEDS: ENOXAPARIN INJ 40 MG/0.4 ML SYR SQ SCH (09:00)
[2023-10-11] MEDS: guaiFENesin 600 MG TABCR PO SCH ×2 (11:03→20:27)
--- NOTE | 2023-10-11 11:59 | Hospitalist Progress Note ---
Date of Service October 11, 2023 Assessment & Plan (1) Severe sepsis: Present on Admission?: Yes (2) Pneumonia: (3) Acute respiratory failure with hypoxia: Plan: Patient is a 67-year-old female with past medical history of hypertension, hypothyroidism who presented to the ED with shortness of breath. CTA chest from admission reviewed personally; bilateral diffuse groundglass opacities. Leukocytosis present on admission. Improvement noted Continue on ceftriaxone and doxycycline. Plan to treat for 7 days Wean oxygen down as tolerated. Urine Legionella and strep pneumo sent; follow-up on results. Prediabetes HbA1c of 6.0% Recommended diet controlled. Follow-up with outpatient Chronic conditions; Hypothyroidismcontinue levothyroxine Hypertensioncontinue on metoprolol CADcontinue on aspirin Time spent evaluating patient, direct bedside care, chart review, placing orders, interpretation of diagnostic studies, discussion with consultants, patient, and family members, as well as other required patient management activities is 50 minutes Please note the above document was generated using voice recognition software. It may contain grammatical, syntax or spelling errors. Any formal questions or concerns about the content, text or information contained within the body of this dictation should be directly addressed to the provider for clarification Admission and Anticipated Discharge Date Admission Date: October 10, 2023 Subjective Patient seen and examined at bedside. Comfortable; not in distress. Denies fever, chills, chest pain, shortness of breath, abdominal pain or urinary symptoms. No significant overnight events. She is on 2 L of nasal cannula. Review of Systems Review of Systems: All systems reviewed & are unremarkable except as noted in Subjective Physical Exam Physical Exam: Constitutional: WD/WN, vitals as above, NAD, sitting up in bed, pleasant, conversing easily Respiratory: Bilateral vesicular breath sound. Occasional crackles. Cardiovascular: RRR, no murmur, no edema Vessels: no JVD or carotid bruit Chest: normal inspection of chest Abdomen: normal bowel sounds, soft, nontender, no hepatosplenomegaly Musculoskeletal: no cyanosis or clubbing, extremities motor strength 5/5 Skin: no rashes, warm and dry normal turgor Neurologic: PERRL, EOMI, accommodation nl, no face palsy, no dysarthria CN's II- XI intact bilaterally and moves all extremities Psychiatric: A+Ox3, euthymic affect Results & Data Results & Data Vital Signs (Past 12 Hours) Vital Signs Temp Pulse Resp BP Pulse Ox O2 Del Method O2 Flow Rate 10/11/23 11:54 36.5 C 70 16 123/70 92 Nasal Cannula 2 10/11/23 07:49 36.5 C 80 18 128/73 92 Nasal Cannula 3 10/11/23 07:40 Nasal Cannula 3 10/11/23 04:37 83 20 125/62 95 Nasal Cannula 2 (2) Pneumonia Laterality: unspecified laterality Lung location: unspecified part of lung Pneumonia type: due to unspecified organism Qualified Code(s): J18.9 - Pneumonia, unspecified organism
[2023-10-11] MEDS: cefTRIAXone SODIUM 2,000 MG in DEXTROSE 5 % MINI-B 50 ML IV SCH (20:27)
[2023-10-12] MEDS: LEVOTHYROXINE SODIUM 112 MCG TABLET PO SCH (06:39)
[2023-10-12 07:42] LABS: Basophils # (auto) 0.06 K/uL (0.00-0.20); Basophils % (auto) 0.7 %; Eosinophils # (auto) 0.32 K/uL (0.00-0.50); Eosinophils % (auto) 3.6 %; Hematocrit (blood only) 39.2 % (37.0-47.0); Hemoglobin 12.7 g/dl (12.0-16.0); Immature Granulocytes # (auto) 0.05 K/uL (0.01-0.20); Immature Granulocytes % (auto) 0.6 %; Lymphocytes # (auto) 1.86 K/uL (1.20-3.40); Lymphocytes % (auto) 21.1 %; Mean Corpuscular Hgb Conc 32.4 g/dL (32.0-36.0); Mean Corpuscular Volume 92.5 fL (80.0-100.0); Mean Platelet Volume 9.6 fL (9.4-12.4); Monocytes # (auto) 0.43 K/uL (0.11-0.59); Monocytes % (auto) 4.9 %; Neutrophils % (auto) 69.1 %; Platelet Count 378 K/uL (130-400); RDW Coefficient of Variation 13.3 % (11.5-14.5); RDW Standard Deviation 44.9 fL (36.4-46.3); Red Blood Count 4.24 M/uL (4.20-5.40); White Blood Count 8.82 K/ul (4.8-10.8)
[2023-10-12 07:54] LABS: BUN Creatinine Ratio 19.5 (10-20); Calcium 9.3 mg/dl (8.6-10.3); Creatinine Clr Calc Pharmacy 93.3 ml/min; Est GFR (African American) 92.6 ml/min; Est GFR (Non-African American) 79.9 ml/min
[2023-10-12] MEDS: ENOXAPARIN INJ 40 MG/0.4 ML SYR SQ SCH (09:09)
[2023-10-12] MEDS: ASPIRIN 81 MG ECTAB PO SCH (09:10)
[2023-10-12] MEDS: METOPROLOL TARTRATE 25 MG TAB PO SCH (09:10)
[2023-10-12] MEDS: guaiFENesin 600 MG TABCR PO SCH (09:10)
[2023-10-12] MEDS: DOXYCYCLINE HYCLATE 100 MG CAP PO SCH (09:10)
--- NOTE | 2023-10-12 13:01 | Discharge Summary ---
Date of Service October 12, 2023 Admission HPI Per Admitting Provider History obtained from patient and records. Medical history significant for stress-induced cardiomyopathy as per records (EF 50 to 54%, TTE 2017), CAD, hypertension, hyperlipidemia, GERD, hypothyroidism. Last confinement August 2021 for respiratory failure secondary to COVID-19 pneumonia. Patient completed Decadron and Baricitinib course, refused Remdesivir. 1 week history of dry cough symptoms, patient unable to expectorate associated with fever, chills and myalgias, nausea, vomiting diarrhea. No headache, no abdominal pain. Denies chest pain. Worsening shortness of breath. Not sure about sick contacts. Patient got sick a day after her. O2 sats 80s upon arrival at the ER. Ceftriaxone and Azithromycin administered at the ER. 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 Per Admitting Provider GENERAL: Comfortable, obese, no respiratory distress SKIN: Normal color, warm HEENT: [place] palpebral conjunctivae, no ptosis, dry buccal mucosa, nasal cannula in place NECK : Supple, no tenderness CHEST : Decreased breath sounds, no tenderness HEART : Tachycardic, no obvious murmurs ABDOMEN: Some distention, nontender EXTREMITIES : Minimal LE swelling, no LE tenderness, no other conspicuous deformities noted NEUROLOGIC : Coherent, no facial asymmetry, no other gross focality Principal Diagnosis Acute hypoxic respiratory failure Pneumonia Discharge Exam Constitutional: WD/WN, vitals as above, NAD, sitting up in bed, pleasant, conversing easily Respiratory: Bilateral vesicular breath sound. Occasional crackles. Cardiovascular: RRR, no murmur, no edema Vessels: no JVD or carotid bruit Chest: normal inspection of chest Abdomen: normal bowel sounds, soft, nontender, no hepatosplenomegaly Musculoskeletal: no cyanosis or clubbing, extremities motor strength 5/5 Skin: no rashes, warm and dry normal turgor Neurologic: PERRL, EOMI, accommodation nl, no face palsy, no dysarthria CN's II- XI intact bilaterally and moves all extremities Psychiatric: A+Ox3, euthymic affect Discharge Data Allergies Allergy/AdvReac Type Severity Reaction Status Date / Time clindamycin Allergy Intermediate rash Verified 01/25/24 20:16 amoxicillin Allergy Rash Verified 10/09/23 20:16 Consultations 10/09/23 20:32 ED Decision to Admit Stat Ordered Studies 10/10/23 08:04 CT angio chest PE protocol Urgent Hospital Course (1) Severe sepsis: (2) Pneumonia: (3) Acute respiratory failure with hypoxia: Patient is a 67-year-old female with past medical history of hypertension, hypothyroidism who presented to the ED with shortness of breath. CTA chest from admission reviewed personally; bilateral diffuse groundglass opacities. Leukocytosis present on admission. Improvement noted subsequent lab work During the hospitalization, patient was restarted on ceftriaxone and doxycycline for pneumonia. Oxygen requirement was weaned down as tolerated. At discharge, she was in room air. Two-step oxygen evaluation was done. Patient was discharged on cefdinir and doxycycline for 5 more days to complete the antibiotic course. Prediabetes HbA1c of 6.0% Recommended diet controlled. Follow-up with outpatient Chronic conditions; Hypothyroidismcontinue levothyroxine Hypertensioncontinue on metoprolol CADcontinue on aspirin Time spent evaluating patient, direct bedside care, chart review, placing orders, interpretation of diagnostic studies, discussion with consultants, patient, and family members, as well as other required patient management activi ties is 50 minutes Please note the above document was generated using voice recognition software. It may contain grammatical, syntax or spelling errors. Any formal questions or concerns about the content, text or information contained within the body of this dictation should be directly addressed to the provider for clarification Total Time Total Time Spent Total Time Spent (In Minutes): 45 Total Time Includes: Examination of the Patient, Discharge Planning, Medication Reconciliation, Communication With Other Providers and Other Discharge Plan Discharge Items Patient Disposition: Home - Self-Care Reason For Visit: SEPSIS Discharge Diagnosis: Pneumonia Activity: Resume your previous activity Non-emergency contact: Primary Care Provider Call non-emergency contact if: you have any medication questions and your symptoms worsen Follow-up/Referrals: Chaparro Foster DO [Primary Care Provider] - Diet: Regular Addtl Attending Provider Instructions: You were admitted to the hospital due to pneumonia. You are treated with IV antibiotics during the hospitalization. You are prescribed following medication to complete the antibiotic course; 1) Cefdinir 300 mg twice a day for 5 days 2) Doxycycline 100 mg twice a day for 5 days An appointment with your primary care will be set for next week. Please follow- up with your primary care doctor Pending Studies at Discharge: No Stand-Alone Forms: [facility], Smoking Cessation Medications and DC Order Prescriptions: New doxycycline hyclate 100 mg Capsule 100 mg PO BID 5 Days Qty: 10 0RF cefdinir 300 mg capsule 300 mg PO BID 5 Days Qty: 10 0RF Continued aspirin 81 mg Tablet,Delayed Release (Dr/Ec) 81 mg PO QAM levothyroxine 112 mcg tablet 112 mcg PO QAM Cbd Oil 8 drp PO BID Rx Instructions: Patient is not sure of the strength metoprolol tartrate 50 mg tablet 25 mg PO BID Qty: 0 0RF ergocalciferol (vitamin D2) 1,000 unit Capsule 2,000 unit PO DAILY quercetin 500 mg Capsule 500 mg PO DAILY turmeric 400 mg PO DAILY biotin 10,000 mcg Capsule 1 mcg PO DAILY zinc 10 mg Tablet 10 mg PO DAILY ascorbic acid (vitamin C) 25 mg Tablet 25 mg PO DAILY Discharge Orders: Discharge Order (Routine); Ordered 10/12/23 Ordered By: Enrico Delaney/Other Patient Handouts: Prediabetes, 5 Steps for Eating Healthier Admission Data Admit Date/Time: 10/10/23 00:07 Attending Provider: Enrico Garcia Admit Provider: Waylon Williamson Primary Care Provider: Chaparro Foster Other Providers: Waylon Williamson Other Interventions: Discharge Summary Assessment (RN) Last Done: 10/12/23 11:53
[2023-10-13 23:23] LABS: Pneumococcal IgG Type 1 1.7; Pneumococcal IgG Type 12 (12F) <0.3; Pneumococcal IgG Type 14 <0.3; Pneumococcal IgG Type 19 (19F) <0.3; Pneumococcal IgG Type 23 (23F) <0.3; Pneumococcal IgG Type 26 (6B) <0.3; Pneumococcal IgG Type 3 0.9; Pneumococcal IgG Type 4 <0.3; Pneumococcal IgG Type 5 <0.3; Pneumococcal IgG Type 51 (7F) 0.5; Pneumococcal IgG Type 56 (18C) 0.4; Pneumococcal IgG Type 68 (9V) <0.3; Pneumococcal IgG Type 8 <0.3; Pneumococcal IgG Type 9 (9N) <0.3
== END 2023-10-12 14:15 | disposition home or self-care (01) | DRG 193 ==
LOC: ED 16:47 → SUATTDRO 10-10 00:07 → EDINP 10-10 00:07 → 2N 10-10 01:01

== ENCOUNTER 2023-10-13 23:32 | Inpatient (IN) ==
--- NOTE | 2023-10-14 00:48 | Emergency Department Note ---
Impression & Plan Dyspnea, Hypoxia, Pneumonia, Elevated troponin ED Provider Note ED Provider Note NAME: LUKE GRANDA AGE:67 SEX: Female : 1955 ARRIVES VIA: Private vehicle INFORMANT: Patient ED PROVIDER(s): Nurys Carbajal DO CHIEF COMPLAINT: Shortness of breath, low oxygen readings and pulse oximeter at home HPI: This is a 67-year-old female who presents emergency room due to concern for increased shortness of breath, and low home pulse oximeter readings. Patient states these readings were at rest. She states she would take a few deep breaths and the level would come back up however within slowly began to drift down. She changed the batteries in her pulse oximeter as a precaution and also checked it against a second pulse oximeter in the house. Patient recently admitted for pneumonia, and just discharged yesterday. She states she was not discharged on any oxygen. She states her was also admitted with pneumonia and was discharged on home oxygen. She states she did briefly use his and did feel improved. She has been taking her antibiotics as prescribed. She states she has not yet had a normal appetite but has not had any overt vomiting. She is having diarrhea but feels that is secondary to the antibiotics. PAST MEDICAL HISTORY:See Below PAST SURGICAL HISTORY:See Below FAMILY HISTORY:See Below SOCIAL HISTORY:See Below HOME MEDICATIONS:See Below ALLERGIES:See Below VITALS:See Below PHYSICAL EXAMINATION: GENERAL: alert, unwell appearing, well nourished, no distress, non-toxic EYE EXAM: normal conjunctiva, PERRL and EOM's grossly intact OROPHARYNX: no exudate, no erythema, lips, buccal mucosa, and tongue normal and mucous membranes are moist NECK: supple, no nuchal rigidity, no adenopathy, non-tender LUNGS: Clear to auscultation. Normal chest wall mechanics, no w/r/r, no increased work of breathing HEART: no murmurs, S1 normal and S2 normal ABDOMEN: abdomen soft, non-tender, normo-active bowel sounds, no masses, no rebound or guarding. BACK: Back is symmetrical on inspection and there is no deformity, no midline tenderness, no CVA tenderness. SKIN: no rashes, petechiae, orbruising UPPER EXTREMITIES: upper extremities are grossly normal. FROM, nml pulses b/l. LOWER EXTREMITIES: No pitting edema. FROM, nml pulses b/l. NEURO EXAM: Normal sensorium, cranial nerves II-XII grossly intact, normal speech, no facial droop,nogross weakness of arms, no gross weakness of legs. Gross sensation intact. No ataxia. Vital Signs: reviewed and remarkable Differential Diagnosis: pneumonia, bronchitis, COPD/Asthma exacerbation, pneumothorax, pulmonary embolism, congestive heart failure, acute coronary syndrome, as well as others were considered MEDICAL DECISION MAKING: This is a 67-year-old female presents emergency department due to concern for increased trouble breathing, increased fatigue as well as hypoxia on home pulse oximeter after recent admission and diagnosis of pneumonia. Patient maintained here on 1 to 2 L via nasal cannula. Labs drawn and sent, IV established, EKG and chest ray performed bedside interpreted by me and patient monitored on telemetry. Chest x-ray with increased markings compared to prior. Labs revealed significant increase in white blood cell count up to 30 which is higher than initial leukocytosis at time of most recent admission. No recent steroids. Due to concern for increased oxygen requirements and possible worsening underlying pneumonia, case discussed with hospitalist team for additional evaluation and management. Patient was made aware of all results, verbalized understanding, and was in agreement with the plan. Mild elevation of patient's troponin also noted, I suspect this is secondary to infection. I do not suspect ACS or PE. Given diarrhea which patient felt was likely secondary to antibiotics, C. difficile culture added although this was still pending at the time my discussion with the hospitalist. Change in or additional antibiotic coverage deferred to hospitalist team. Consultation(s): 0150: Discussed with Dr. Ugalde, [facility] hospitalist, for additional evaluation and management. ER Treatment Provided: See below 0140: After neb treatment, oxygen removed for patient to ambulate to the restroom. Even prior to any movement, oxygen on room air had dropped to 87 to 88%. Patient placed back on oxygen. Patient updated on lab abnormalities and need for further evaluation. Diagnostics Interpreted By Me: -ECG: Normal sinus at 91, leftward axis, normal intervals, no acute ST/T wave changes -Cardiac Monitoring: An order was placed for continuous cardiac monitoring. The monitor shows a rate of 97 with normal sinus rhythm. -Laboratory studies: As stated above and show below. -Imaging studies: Chest x-ray: No cardiomegaly, no pleural effusions, increased bilateral infiltrates compared to prior x-ray Triage Nursing Note Reviewed Prior/Outside Records Reviewed -discharge summary from yesterday reviewed Past Med/Surg History Medical History Hypertension Gastroesophageal reflux disease Dyslipidemia Acute myocardial infarction Surgical History No pertinent past surgical history Social History Smoking Status: Never smoker Hx Alcohol Use: No Hx Substance Use: No Preferred Language: Congolese Communication Ability: Effective Retail Team Member Required: No Beliefs That Will Affect Care: None marital status: Current Living Situation: Spouse and Family Current Living Situation Comment: Lives with and son. has dementia. Feels Safe at Home: Yes Safety Concerns: Feels Safe At This Time Assistive Devices: None Allergies Allergies Allergy/AdvReac Type Severity Reaction Status Date / Time clindamycin Allergy Intermediate rash Verified 10/09/23 20:16 amoxicillin Allergy Rash Verified 10/09/23 20:16 Home Meds Home Medications Medication Instructions Recorded Confirmed Cbd Oil 8 drp PO BID 08/08/21 10/14/23 aspirin 81 mg tablet,delayed 81 mg PO QAM 08/08/21 10/14/23 release levothyroxine 112 mcg tablet 112 mcg PO QAM 08/08/21 10/14/23 quercetin 500 mg capsule 500 mg PO DAILY 07/08/22 10/14/23 biotin 10,000 mcg capsule 1 mcg PO DAILY 10/09/23 10/14/23 ascorbic acid (vitamin C) 250 mg 250 mg PO QAM 10/14/23 10/14/23 tablet (Vitamin C) cholecalciferol (vitamin D3) 50 50 mcg PO DAILY 10/14/23 10/14/23 mcg (2,000 unit) tablet (Vitamin D3) turmeric 400 mg capsule 400 mg PO DAILY 10/14/23 10/14/23 zinc 50 mg capsule 50 mg PO DAILY 10/14/23 10/14/23 Previous Rx's Medication Instructions Recorded metoprolol tartrate 50 mg tablet 25 mg (1/2 x 50 mg) PO BID #0 tabs 08/20/21 cefdinir 300 mg capsule 300 mg PO BID 5 days #10 caps 10/12/23 doxycycline hyclate 100 mg capsule 100 mg PO BID 5 days #10 caps 10/12/23 Results & Data (ED) Vital Signs Vital Signs - 24 hr 10/14/23 01:27 10/14/23 01:35 10/14/23 01:43 Pulse Rate 96 H 98 H Pulse Rate [Exercises] 99 H Pulse Rate [Recovery] 96 H Pulse Rate [Resting] 94 H Pulse Rhythm Regular Regular Respiratory Rate 18 16 Respiratory Rate [Exercises] 22 Respiratory Rate [Recovery] 19 Respiratory Rate [Resting] 16 Pulse Oximetry 88 L 94 Pulse Oximetry [Exercises] 88 L Pulse Oximetry [Recovery] 91 Pulse Oximetry [Resting] 92 Oxygen Delivery Method Room Air Room Air Nasal Cannula Oxygen Flow Rate 0 3 Laboratory Data 10/14/23 02:59 10/14/23 02:59 Lab Results 10/13/23 10/14/23 Range/Units 23:52 01:36 WBC 30.24 H* (4.8-10.8) K/ul RBC 4.27 (4.20-5.40) M/uL Hgb 12.7 (12.0-16.0) g/dl Hct 39.7 (37.0-47.0) % MCV 93.0 (80.0-100.0) fL MCH 29.7 (25.0-34.0) pg MCHC 32.0 (32.0-36.0) g/dL RDW Std Deviation 45.2 (36.4-46.3) fL RDW Coeff of Jelly 13.3 (11.5-14.5) % Plt Count 391 (130-400) K/uL MPV 9.8 (9.4-12.4) fL Immature Gran % (Auto) 0.9 % Neut % (Auto) 90.9 % Lymph % (Auto) 5.8 % [place] % (Auto) 1.3 % Eos % (Auto) 0.7 % Baso % (Auto) 0.4 % Neut # (Auto) 27.50 H (1.40-6.50) K/uL Lymph # (Auto) 1.74 (1.20-3.40) K/uL [place] # (Auto) 0.40 (0.11-0.59) K/uL Eos # (Auto) 0.21 (0.00-0.50) K/uL Baso # (Auto) 0.11 (0.00-0.20) K/uL Immature Gran # (Auto) 0.28 H (0.01-0.20) K/uL Sodium 135 L (136-145) mmol/L Potassium 3.7 (3.5-5.1) mmol/L Chloride 99 (98-107) mmol/L Carbon Dioxide 28 (21-32) mmol/L Anion Gap 8 (3-11) BUN 13 (6-23) mg/dl Creatinine 0.76 (0.6-1.2) mg/dl Est Cr Clr Drug Dosing 89.9 ml/min Est GFR ( Amer) 94.1 ml/min Est GFR (Non-Af Amer) 81.2 ml/min BUN/Creatinine Ratio 17.1 (10-20) Glucose 114 H (70-99(Fasting)) mg/dl Lactate 0.9 (0.4-2.0) mmol/L Calcium 9.1 (8.6-10.3) mg/dl Magnesium 1.9 (1.7-2.4) mg/dl Total Bilirubin 0.5 (0.2-1.0) mg/dl AST 22 (13-39) U/L ALT 17 (7-52) U/L Alkaline Phosphatase 103 (34-104) U/L Troponin I High Sens 20.1 H (0-14) pg/ml Total Protein 7.1 (6.0-8.3) gm/dl Albumin 3.6 (3.4-5.0) gm/dl Globulin 3.5 (2.5-4.0) gm/dl Albumin/Globulin Ratio 1.0 (0.9-2) Lipase 18 (11-82) U/L Procalcitonin 0.07 (0-0.5) ng/ml SARS-CoV-2 (PCR) NEGATIVE (Negative) Influenza Type A (PCR) Negative (Neg) Influenza Type B (PCR) Negative (Neg) RSV (RT-PCR) Negative (Neg) Administered Medications Aspirin (Aspirin 81 Mg Ectab) 81 mg PO [facility] Stop: 11/13/23 08:59 Last Admin: 10/14/23 08:39 Dose: 81 mg Documented By: TRAVIS Cefdinir (Cefdinir 300 Mg Cap) 300 mg PO BID [facility]; Protocol Stop: 10/21/23 08:59 Last Admin: 10/14/23 20:04 Dose: 300 mg Documented By: Admin: 10/14/23 08:40 Dose: 300 mg Documented By: TRAVIS Doxycycline Hyclate (Doxycycline Hyclate 100 Mg Cap) 100 mg PO BID [facility] Stop: 10/21/23 08:59 Last Admin: 10/14/23 20:04 Dose: 100 mg Documented By: Admin: 10/14/23 08:39 Dose: 100 mg Documented By: TRAVIS Enoxaparin Sodium (Enoxaparin Inj 40 Mg/0.4 Ml Syr) 40 mg SQ QAM ROD Stop: 11/13/23 08:59 Last Admin: 10/14/23 08:40 Dose: 40 mg Documented By: TRAVIS Guaifenesin (Guaifenesin 600 Mg Tabcr) 600 mg PO Q12 ROD Stop: 11/13/23 02:39 Last Admin: 10/14/23 20:36 Dose: 600 mg Documented By: Admin: 10/14/23 08:39 Dose: 600 mg Documented By: Admin: 10/14/23 03:34 Dose: 600 mg Documented By: VIGNESH Ipratropium [place] (Ipratropium [place] Neb Soln 0.02% 0.5mg/2.5ml Vial) 0.5 mg INH QIDR [facility] Stop: 11/13/23 07:29 Last Admin: 10/14/23 19:22 Dose: 0.5 mg Documented By: Admin: 10/14/23 16:05 Dose: 0.5 mg Documented By: Admin: 10/14/23 11:23 Dose: 0.5 mg Documented By: Admin: 10/14/23 08:07 Dose: 0.5 mg Documented By: WILLIE Levalbuterol HCl (Levalbuterol 1.25 Mg/3 Ml Neb) 1.25 mg NEB QIDR [facility] Stop: 11/13/23 07:29 Last Admin: 10/14/23 19:22 Dose: 1.25 mg Documented By: Admin: 10/14/23 16:05 Dose: 1.25 mg Documented By: Admin: 10/14/23 11:23 Dose: 1.25 mg Documented By: Admin: 10/14/23 08:07 Dose: 1.25 mg Documented By: WILLIE Levothyroxine Sodium (Levothyroxine Sodium 112 Mcg Tablet) 112 mcg PO DAILYBB [facility] Stop: 11/13/23 06:29 Last Admin: 10/14/23 06:42 Dose: 112 mcg Documented By: VIGNESH Metoprolol Tartrate (Metoprolol Tartrate 25 Mg Tab) 25 mg PO BID [facility] Stop: 11/13/23 08:59 Last Admin: 10/14/23 20:04 Dose: 25 mg Documented By: Admin: 10/14/23 08:39 Dose: 25 mg Documented By: TRAVIS Discontinued Medications Albuterol (Albut/Ipratrop 3mg/0.5mg Neb 3 Ml Vial) 3 ml NEB NOW STA; Protocol Stop: 10/14/23 00:51 Last Admin: 10/14/23 01:11 Dose: 3 ml Documented By: VIGNESH Sodium Chloride (Nss) 1,000 mls @ 125 mls/hr IV .Q8H [facility] Stop: 11/13/23 01:44 Last Admin: 10/14/23 02:40 Dose: Not Given Documented By: STEPHANI Metronidazole (Flagyl) 500 mg in 100 mls @ 100 mls/hr IV NOW STA; Protocol Stop: 10/14/23 03:06 Last Infusion: 10/14/23 04:14 Dose: Infused Documented By: Admin: 10/14/23 03:05 Dose: 100 mls/hr Documented By: VIGNESH Magnesium Sulfate/Dextrose (Magnesium Sulfate / D5w) 1 gm in 100 mls @ 50 mls/hr IV NOW STA Stop: 10/14/23 04:06 Last Infusion: 10/14/23 05:10 Dose: Infused Documented By: GEOFF(2) Admin: 10/14/23 03:05 Dose: 50 mls/hr Documented By: VIGNESH Potassium Chloride/Sodium Chloride (Normal Saline W/20 Meq Kcl) 20 meq in 1,000 mls @ 80 mls/hr IV .[id number] STA; Protocol Stop: 10/14/23 14:37 Last Infusion: 10/14/23 14:49 Dose: Infused Documented By: Admin: 10/14/23 03:05 Dose: 80 mls/hr Documented By: VIGNESH Ioversol (Optiray 320 125ml) 125 ml IV ONCE ONE Stop: 10/14/23 06:13 Last Admin: 10/14/23 06:12 Dose: 116 ml Documented By: [facility] Imaging Data Radiologist's Impression: Chest X-Ray 10/14/23 00:32 XR chest 1V portable HISTORY: Shortness of breath. COMPARISON: Chest 10/09/2023. FINDINGS: No pneumothorax. No pleural effusions. The heart is borderline enlarged. This remains unchanged. Diffuse interstitial thickening with upper lobe predominant patchy airspace opacities persist. No acute fractures identified. IMPRESSION: No change in the diffuse interstitial thickening and upper lobe predominant patchy airspace opacities. This may represent a pneumonia. ACT 112: Negative or not required by law. Electronically signed by: Lucian Pichardo M.D. 10/14/2023 7:06 AM Chest CTA 10/14/23 02:35 CHEST CTA for PULMONARY ARTERIES CT DOSE: 904.64 mGy.cm HISTORY: Atypical chest pain, low o2 TECHNIQUE: Multiaxial CT images of the chest were performed following the intravenous administration of contrast to evaluate the pulmonary arteries. 3D/Maximal intensity projection images were also obtained. Sagittal and coronal reformations were also reviewed. A dose lowering technique was utilized adhering to the principles of ALARA. COMPARISON STUDY: Chest CTA 10/10/2023. FINDINGS: No acute fractures within the chest. No pneumothorax. The central airways are patent. Mild bronchial wall thickening within the lower lobes persist. Upper lobe predominant patchy groundglass airspace opacities are again noted. This is most pronounced within the right upper lobe. This is similar to the prior study. A few bibasilar linear densities favor subsegmental atelectasis. Normal thyroid gland. Limited views the upper abdomen demonstrate normal liver, spleen, and adrenal glands. Normal esophagus. Mild mediastinal and bilateral hilar lymphadenopathy persists. No pleural or pericardial effusions. The heart is top normal in size. Normal caliber thoracic aorta with no evidence for a dissection. No filling defects within the pulmonary arteries to suggest a pulmonary embolus. IMPRESSION: 1. Overall, no significant change compared to the prior study. 2. Upper lobe predominant patchy airspace opacities persist. This favors a pneumonia. 3. No evidence for a pulmonary embolus. 4. Mild bronchial wall thickening within the lower lobes again noted. 5. Mild mediastinal and hilar lymphadenopathy. This may be reactive. ACT 112: Negative or not required by law. Electronically signed by: Lucian Pichardo M.D. 10/14/2023 6:56 AM Discharge Plan Visit Data Chief Complaint: Shortness of Breath/Dyspnea Stated Complaint: SOB, Cough, Pneumonia ED Provider: Nurys Carbajal Discharge Problem: Dyspnea, Hypoxia, Pneumonia, Elevated troponin Patient Disposition: Admitted As Inpatient Discharge Instructions Interventions: ED Discharge Assessment Last Done: 10/14/23 04:54
[2023-10-14] MEDS: ALBUT/IPRATROP 3MG/0.5MG NEB 3 ML VIAL NEB STA (01:11)
[2023-10-14 01:12] LABS: Albumin Level 3.6 gm/dl (3.4-5.0); BUN Creatinine Ratio 17.1 (10-20); Bilirubin,Total 0.5 mg/dl (0.2-1.0); Calcium 9.1 mg/dl (8.6-10.3); Creatinine Clr Calc Pharmacy 89.9 ml/min; Est GFR (African American) 94.1 ml/min; Est GFR (Non-African American) 81.2 ml/min; Globulin 3.5 gm/dl (2.5-4.0); Magnesium 1.9 mg/dl (1.7-2.4); Potassium 3.7 mmol/L (3.5-5.1); Total Protein 7.1 gm/dl (6.0-8.3)
[2023-10-14 01:17] LABS: Hematocrit (blood only) 39.7 % (37.0-47.0); Hemoglobin 12.7 g/dl (12.0-16.0); Mean Corpuscular Hemoglobin 29.7 pg (25.0-34.0); Mean Platelet Volume 9.8 fL (9.4-12.4); Platelet Count 391 K/uL (130-400); RDW Coefficient of Variation 13.3 % (11.5-14.5); RDW Standard Deviation 45.2 fL (36.4-46.3); Red Blood Count 4.27 M/uL (4.20-5.40); White Blood Count 30.24 K/ul (4.8-10.8)
[2023-10-14 01:19] LABS: Troponin I High Sensitivity 20.1 pg/ml (0-14)
[2023-10-14 01:28] LABS: Basophils # (auto) 0.11 K/uL (0.00-0.20); Basophils % (auto) 0.4 %; Eosinophils # (auto) 0.21 K/uL (0.00-0.50); Eosinophils % (auto) 0.7 %; Immature Granulocytes # (auto) 0.28 K/uL (0.01-0.20); Immature Granulocytes % (auto) 0.9 %; Lymphocytes # (auto) 1.74 K/uL (1.20-3.40); Lymphocytes % (auto) 5.8 %; Monocytes % (auto) 1.3 %; Neutrophils % (auto) 90.9 %
--- NOTE | 2023-10-14 02:35 | History & Physical Report ---
Date of Service October 14, 2023 Assessment & Plan (1) Acute hypoxemic respiratory failure: Plan: Recent bout of community-acquired pneumonia, ongoing cefdinir and doxycycline Rx Rule out PE given chest heaviness complaints Troponin elevation secondary to above Diarrhea rule out C. difficile given antibiotic course Possible sepsis stress-induced cardiomyopathy as per records, patient on dry side hx CAD as per records hypertension, slight elevated hypothyroidism, euthyroid as of recent outpatient TSH from 3 months ago Prediabetes, hemoglobin A1c of 6 this month Medical telemetry Supplemental O2 CT chest PE study Continue current antibiotic Rx Nebs RTC May benefit from Pulmonary consultation if CT chest negative for pulmonary embolism Follow troponin, TTE if with progression CS, check stool C. difficile Flagyl 1 dose now for possible C. difficile given possible sepsis, Oral vancomycin if stool C. difficile positive PT OT eval once medically stable DVT prophylaxis with Lovenox subcu Full code Text document was generated using [employer] voice recognition software. It may contain grammatical or spelling errors. Kindly contact undersigned for clarification of any documentation item in question. History of Present Illness Chief Complaint: Worsening shortness of breath, low O2 Primary Care Provider: Chaparro Foster, History obtained from patient and records. Medical history significant for stress-induced cardiomyopathy as per records (EF 50 to 54%, TTE 2017), CAD, hypertension, hyperlipidemia, GERD, prediabetes, hypothyroidism. Recent admission October 10 to 2023 for respiratory failure secondary to community-acquired pneumonia. CTA chest showed bilateral diffuse groundglass opacities. No PE. Patient initially required oxygen but was on room air at time of discharge. Patient discharged on cefdinir and doxycycline course. Prediabetes found on blood work with hemoglobin A1c of 6 noted. Yesterday, patient noted worsening dry cough symptoms with shortness of breath and chest heaviness. Denies aspiration. Denies weight gain. Watery loose stools without abdominal pain. Patient returned to ER for evaluation. Lowest O2 sats of 80s documented during ER stay. Patient received neb treatment at the ER. 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 Allergies Allergy/AdvReac Type Severity Reaction Status Date / Time clindamycin Allergy Intermediate rash Verified 10/09/23 20:16 amoxicillin Allergy Rash Verified 10/09/23 20:16 Home Medications Medication Instructions Recorded Confirmed Type Cbd Oil 8 drp PO BID 08/08/21 10/14/23 History aspirin 81 mg tablet,delayed 81 mg PO QAM 08/08/21 10/14/23 History release levothyroxine 112 mcg tablet 112 mcg PO QAM 08/08/21 10/14/23 History metoprolol tartrate 50 mg tablet 25 mg (1/2 x 50 mg) PO BID #0 tabs 08/20/21 10/14/23 Rx quercetin 500 mg capsule 500 mg PO DAILY 07/08/22 10/14/23 History biotin 10,000 mcg capsule 1 mcg PO DAILY 10/09/23 10/14/23 History cefdinir 300 mg capsule 300 mg PO BID 5 days #10 caps 10/12/23 10/14/23 Rx doxycycline hyclate 100 mg capsule 100 mg PO BID 5 days #10 caps 10/12/23 10/14/23 Rx ascorbic acid (vitamin C) 250 mg 250 mg PO QAM 10/14/23 10/14/23 History tablet (Vitamin C) cholecalciferol (vitamin D3) 50 50 mcg PO DAILY 10/14/23 10/14/23 History mcg (2,000 unit) tablet (Vitamin D3) turmeric 400 mg capsule 400 mg PO DAILY 10/14/23 10/14/23 History zinc 50 mg capsule 50 mg PO DAILY 10/14/23 10/14/23 History Past Med/Surg History Medical History Hypertension Gastroesophageal reflux disease Dyslipidemia Acute myocardial infarction Surgical History No pertinent past surgical history Social History Smoking Status: Never smoker Hx Alcohol Use: No Hx Substance Use: No Preferred Language: [place] Communication Ability: Effective 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 has dementia. Feels Safe at Home: Yes Review of Systems Review of Systems: As per HPI, all other systems reviewed and negative Physical Exam Physical Exam: GENERAL: Slightly uncomfortable, obese, no respiratory distress SKIN: Normal color, warm HEENT: [place] palpebral conjunctivae, no ptosis, dry buccal mucosa, nasal cannula in place NECK : Supple, no tenderness CHEST : Decreased breath sounds, no tenderness HEART : RRR, no obvious murmurs ABDOMEN: Some distention, nontender EXTREMITIES : no LE swelling, no LE tenderness, no other conspicuous deformities noted NEUROLOGIC : Coherent, no facial asymmetry, no other gross focality Results & Data Results & Data Vital Signs (Past 12 Hours) Vital Signs Temp Pulse Pulse Resp BP BP Pulse Ox 10/14/23 01:43 98 H 16 94 10/14/23 01:35 96 H 18 88 L 10/13/23 23:50 94 H 10/13/23 23:24 37.2 C 94 H 16 152/80 H 92 10/13/23 23:24 92 10/13/23 23:24 37.2 C 94 H 16 152/80 H 92 10/13/23 23:24 O2 Del Method O2 Flow Rate 10/14/23 01:43 Nasal Cannula 3 10/14/23 01:35 Room Air 0 10/13/23 23:50 10/13/23 23:24 Nasal Cannula 1 10/13/23 23:24 Nasal Cannula 1 10/13/23 23:24 Nasal Cannula 1 10/13/23 23:24 Nasal Cannula 1 Laboratory Results Laboratory Results WBC 30.24 K/ul (4.8-10.8) H* 10/13/23 23:52 RBC 4.27 M/uL (4.20-5.40) 10/13/23 23:52 Hgb 12.7 g/dl (12.0-16.0) 10/13/23 23:52 Hct 39.7 % (37.0-47.0) 10/13/23 23:52 MCV 93.0 fL (80.0-100.0) 10/13/23 23:52 MCH 29.7 pg (25.0-34.0) 10/13/23 23:52 MCHC 32.0 g/dL (32.0-36.0) 10/13/23 23:52 RDW Std Deviation 45.2 fL (36.4-46.3) 10/13/23 23:52 RDW Coeff of Jelly 13.3 % (11.5-14.5) 10/13/23 23:52 Plt Count 391 K/uL (130-400) 10/13/23 23:52 MPV 9.8 fL (9.4-12.4) 10/13/23 23:52 Immature Gran % (Auto) 0.9 % 10/13/23 23:52 Neut % (Auto) 90.9 % 10/13/23 23:52 Lymph % (Auto) 5.8 % 10/13/23 23:52 Rains % (Auto) 1.3 % 10/13/23 23:52 Eos % (Auto) 0.7 % 10/13/23 23:52 Baso % (Auto) 0.4 % 10/13/23 23:52 Neut # (Auto) 27.50 K/uL (1.40-6.50) H 10/13/23 23:52 Lymph # (Auto) 1.74 K/uL (1.20-3.40) 10/13/23 23:52 Rains # (Auto) 0.40 K/uL (0.11-0.59) 10/13/23 23:52 Eos # (Auto) 0.21 K/uL (0.00-0.50) 10/13/23 23:52 Baso # (Auto) 0.11 K/uL (0.00-0.20) 10/13/23 23:52 Immature Gran # (Auto) 0.28 K/uL (0.01-0.20) H 10/13/23 23:52 Sodium 135 mmol/L (136-145) L 10/13/23 23:52 Potassium 3.7 mmol/L (3.5-5.1) 10/13/23 23:52 Chloride 99 mmol/L (98-107) 10/13/23 23:52 Carbon Dioxide 28 mmol/L (21-32) 10/13/23 23:52 Anion Gap 8 (3-11) 10/13/23 23:52 BUN 13 mg/dl (6-23) 10/13/23 23:52 Creatinine 0.76 mg/dl (0.6-1.2) 10/13/23 23:52 Est Cr Clr Drug Dosing 89.9 ml/min 10/13/23 23:52 Est GFR ( Amer) 94.1 ml/min 10/13/23 23:52 Est GFR (Non-Af Amer) 81.2 ml/min 10/13/23 23:52 BUN/Creatinine Ratio 17.1 (10-20) 10/13/23 23:52 Glucose 114 mg/dl (70-99(Fasting)) H 10/13/23 23:52 Lactate 0.9 mmol/L (0.4-2.0) 10/14/23 01:36 Calcium 9.1 mg/dl (8.6-10.3) 10/13/23 23:52 Magnesium 1.9 mg/dl (1.7-2.4) 10/13/23 23:52 Total Bilirubin 0.5 mg/dl (0.2-1.0) 10/13/23 23:52 AST 22 U/L (13-39) 10/13/23 23:52 ALT 17 U/L (7-52) 10/13/23 23:52 Alkaline Phosphatase 103 U/L (34-104) 10/13/23 23:52 Troponin I High Sens 20.1 pg/ml (0-14) H 10/13/23 23:52 Total Protein 7.1 gm/dl (6.0-8.3) 10/13/23 23:52 Albumin 3.6 gm/dl (3.4-5.0) 10/13/23 23:52 Globulin 3.5 gm/dl (2.5-4.0) 10/13/23 23:52 Albumin/Globulin Ratio 1.0 (0.9-2) 10/13/23 23:52 Lipase 18 U/L (11-82) 10/13/23 23:52 Procalcitonin 0.07 ng/ml (0-0.5) 10/14/23 01:36 Diagnostic Findings Chest x-ray as per my interpretation bilateral opacities, atelectasis EKG as per my interpretation : Rate 90, NSR, LAD, LAFB, LVH, no ischemia
[2023-10-14] MEDS ORDERED: LORazepam 0.5 MG TAB PO PRN (02:39)
[2023-10-14] MEDS ORDERED: traMADol HCL 50 MG TABLET PO PRN (02:39)
[2023-10-14] MEDS ORDERED: PROMETHAZINE HCL 12.5 MG in SODIUM CHLORIDE 0.9% 50 ML IV PRN (02:39)
[2023-10-14] MEDS: SODIUM CHLORIDE 0.9% 1,000 ML IV SCH (02:40)
[2023-10-14] MEDS: NSS + 20MEQ KCL 20 MEQ/1,000 ML BAG IV STA (03:05)
[2023-10-14] MEDS: metroNIDAZOLE 500 MG/100 ML BAG IV STA (03:05)
[2023-10-14] MEDS: MAGNESIUM SULFATE / D5W 1 GM/100 ML BAG IV STA (03:05)
[2023-10-14] MEDS: guaiFENesin 600 MG TABCR PO SCH (03:34)
[2023-10-14 03:40] LABS: Base Excess ABG 4.6 mEq/L (-9-1.8); HCO3 ABG 28 mmol/L (19-24); Oxygen Saturation ABG 93.6 % (90-95); PCO2 ABG 38 mmHg (35-46); PO2 ABG 62 mmHg (80-95); pH ABG 7.48 (7.35-7.45)
[2023-10-14 03:46] LABS: Hematocrit (blood only) 35.9 % (37.0-47.0); Hemoglobin 12.1 g/dl (12.0-16.0); Mean Corpuscular Hemoglobin 30.5 pg (25.0-34.0); Mean Corpuscular Hgb Conc 33.7 g/dL (32.0-36.0); Mean Corpuscular Volume 90.4 fL (80.0-100.0); Mean Platelet Volume 9.7 fL (9.4-12.4); Platelet Count 368 K/uL (130-400); RDW Coefficient of Variation 13.2 % (11.5-14.5); RDW Standard Deviation 44.5 fL (36.4-46.3); Red Blood Count 3.97 M/uL (4.20-5.40); White Blood Count 28.56 K/ul (4.8-10.8)
[2023-10-14 03:51] LABS: Allen Test Pos (Pos)
[2023-10-14 04:02] LABS: BUN Creatinine Ratio 14.5 (10-20); Calcium 9.3 mg/dl (8.6-10.3); Creatinine Clr Calc Pharmacy 89.9 ml/min; Est GFR (African American) 94.1 ml/min; Est GFR (Non-African American) 81.2 ml/min; Potassium 3.8 mmol/L (3.5-5.1)
[2023-10-14 04:30] LABS: Influenza A virus by PCR Negative (Neg); Influenza B virus by PCR Negative (Neg); RSV by PCR Negative (Neg); SARS CoV2 RNA(COVID-19) Ceph NEGATIVE (Negative)
[2023-10-14 05:08] LABS: Basophils # (auto) 0.08 K/uL (0.00-0.20); Basophils % (auto) 0.3 %; Eosinophils # (auto) 0.23 K/uL (0.00-0.50); Eosinophils % (auto) 0.8 %; Immature Granulocytes # (auto) 0.17 K/uL (0.01-0.20); Immature Granulocytes % (auto) 0.6 %; Lymphocytes # (auto) 1.81 K/uL (1.20-3.40); Lymphocytes % (auto) 6.3 %; Monocytes # (auto) 0.43 K/uL (0.11-0.59); Monocytes % (auto) 1.5 %; Neutrophils # (auto) 25.84 K/uL (1.40-6.50); Neutrophils % (auto) 90.5 %
[2023-10-14] MEDS: OPTIRAY 320 125ml IV ONE (06:12)
[2023-10-14] MEDS: LEVOTHYROXINE SODIUM 112 MCG TABLET PO SCH (06:42)
--- NOTE | 2023-10-14 06:59 | CT Scan Report ---
CHEST CTA for PULMONARY ARTERIES CT DOSE: 904.64 mGy.cm HISTORY: Atypical chest pain, low o2 TECHNIQUE: Multiaxial CT images of the chest were performed following the intravenous administration of contrast to evaluate the pulmonary arteries. 3D/Maximal intensity projection images were also obta ined. Sagittal and coronal reformations were also reviewed. A dose lowering technique was utilized a dhering to the principles of ALARA. COMPARISON STUDY: Chest CTA 10/10/2023. FINDINGS: No acute fractures within the chest. No pneumothorax. The central airways are patent. Mild bronchial wall thickening within the lower lobes persist. Upper lobe predominant patchy groundglass a irspace opacities are again noted. This is most pronounced within the right upper lobe. This is simil ar to the prior study. A few bibasilar linear densities favor subsegmental atelectasis. Normal thyroi d gland. Limited views the upper abdomen demonstrate normal liver, spleen, and adrenal glands. Normal esophagus. Mild mediastinal and bilateral hilar lymphadenopathy persists. No pleural or pericardial effusions. The heart is top normal in size. Normal caliber thoracic aorta with no evidence for a diss ection. No filling defects within the pulmonary arteries to suggest a pulmonary embolus. IMPRESSION: 1. Overall, no significant change compared to the prior study. 2. Upper lobe predominant patchy airspace opacities persist. This favors a pneumonia. 3. No evidence for a pulmonary embolus. 4. Mild bronchial wall thickening within the lower lobes again noted. 5. Mild mediastinal and hilar lymphadenopathy. This may be reactive. ACT 112: Negative or not required by law. Electronically signed by: Lucian Pichardo M.D. 10/14/2023 6:56 AM
--- NOTE | 2023-10-14 07:07 | XRay Report ---
XR chest 1V portable HISTORY: Shortness of breath. COMPARISON: Chest 10/09/2023. FINDINGS: No pneumothorax. No pleural effusions. The heart is borderline enlarged. This remains uncha nged. Diffuse interstitial thickening with upper lobe predominant patchy airspace opacities persist. No acute fractures identified. IMPRESSION: No change in the diffuse interstitial thickening and upper lobe predominant patchy airspace opacities . This may represent a pneumonia. ACT 112: Negative or not required by law. Electronically signed by: Lucian Pichardo M.D. 10/14/2023 7:06 AM
[2023-10-14] MEDS: IPRATROPIUM BROMIDE NEB SOLN 0.02% 0.5MG/2.5ML VIAL INH SCH (08:07)
[2023-10-14] MEDS: LEVALBUTEROL 1.25 MG/3 ML NEB NEB SCH (08:07)
[2023-10-14] MEDS: DOXYCYCLINE HYCLATE 100 MG CAP PO SCH (08:39)
[2023-10-14] MEDS: METOPROLOL TARTRATE 25 MG TAB PO SCH (08:39)
[2023-10-14] MEDS: ASPIRIN 81 MG ECTAB PO SCH (08:39)
[2023-10-14] MEDS: CEFDINIR 300 MG CAP PO SCH (08:40)
[2023-10-14] MEDS: ENOXAPARIN INJ 40 MG/0.4 ML SYR SQ SCH (08:40)
[2023-10-14] MEDS ORDERED: XOPENEX/ATROVENT 1.25mg/0.5MG NEB COMBO NEB SCH (09:00)
--- NOTE | 2023-10-14 12:14 | Electrocardiogram Report ---
Test Reason : Blood Pressure : / mmHG Vent. Rate : 091 BPM Atrial Rate : 091 BPM P-R Int : 164 ms QRS Dur : 108 ms QT Int : 374 ms P-R-T Axes : 051 -34 019 degrees QTc Int : 460 ms Normal sinus rhythm Left axis deviation Moderate voltage criteria for LVH, may be normal variant ( R in aVL ) Poor R wave progression, consider anterior OR vs. lead placement vs. LVH Abnormal ECG When compared with ECG of 09-OCT-2023 19:42, No significant change was found Confirmed by Mark Skinner ([id number]) on 10/14/2023 12:14:06 PM Referred By: REFERRED SELF Confirmed By:Mark Skinner
--- NOTE | 2023-10-14 15:52 | Communication Note ---
Date of Service: October 14, 2023 67-year-old obese female was admitted with acute respiratory failure secondary to ongoing pneumonia. She has been feeling little better since admission and remains hemodynamically stable without any fever. She started with oral Ceftin need and doxycycline which will be continued. No PE on CT scan of the chest. Full progress note will be done tomorrow. Dr Melvi Martinez
[2023-10-15 07:48] LABS: Basophils # (auto) 0.04 K/uL (0.00-0.20); Basophils % (auto) 0.4 %; Eosinophils % (auto) 4.2 %; Hematocrit (blood only) 36.9 % (37.0-47.0); Hemoglobin 11.7 g/dl (12.0-16.0); Immature Granulocytes # (auto) 0.06 K/uL (0.01-0.20); Immature Granulocytes % (auto) 0.6 %; Lymphocytes # (auto) 1.77 K/uL (1.20-3.40); Lymphocytes % (auto) 18.6 %; Mean Corpuscular Hemoglobin 29.7 pg (25.0-34.0); Mean Corpuscular Hgb Conc 31.7 g/dL (32.0-36.0); Mean Corpuscular Volume 93.7 fL (80.0-100.0); Mean Platelet Volume 9.6 fL (9.4-12.4); Monocytes # (auto) 0.44 K/uL (0.11-0.59); Monocytes % (auto) 4.6 %; Neutrophils # (auto) 6.83 K/uL (1.40-6.50); Neutrophils % (auto) 71.6 %; Platelet Count 352 K/uL (130-400); RDW Coefficient of Variation 13.5 % (11.5-14.5); RDW Standard Deviation 46.6 fL (36.4-46.3); Red Blood Count 3.94 M/uL (4.20-5.40); White Blood Count 9.54 K/ul (4.8-10.8)
[2023-10-15 08:00] LABS: BUN Creatinine Ratio 9.6 (10-20); Creatinine Clr Calc Pharmacy 92.6 ml/min; Est GFR (African American) 98.8 ml/min; Est GFR (Non-African American) 85.2 ml/min; Magnesium 2.1 mg/dl (1.7-2.4); Phosphorus 3.3 mg/dl (2.5-4.9)
[2023-10-15] MEDS: ACETAMINOPHEN 325 MG TAB PO PRN (09:14)
[2023-10-15] MEDS: BENZONATATE 100 MG CAPSULE PO PRN (09:15)
[2023-10-15 11:31] VITALS: BP 118/72; TEMP 97.9
--- NOTE | 2023-10-15 12:42 | Hospitalist Progress Note ---
Date of Service October 15, 2023 Assessment & Plan (1) Acute hypoxemic respiratory failure: Plan: Recent bout of community-acquired pneumonia, ongoing cefdinir and doxycycline Rx Condition get worse with increasing shortness of breath and wheezing that is the reason patient was readmitted She has been requiring oxygen since admission but that was taken off earlier this morning Has been started on same medications as cefdinir and doxycycline Her white count was elevated at 38,000 but that has gone down to normal this morning She has been feeling much better and has minimal cough but no other symptoms Her blood cultures have been negative She is mentally and physically ready to be discharged Will get her to a stable O2 saturation test prior to discharge Increasing shortness of breath secondary to above CTA did not show any pulmonary embolism Troponin elevation secondary to above Second set of troponin came down to be normal Patient denies any cardiac symptoms Diarrhea rule out C. difficile given antibiotic course C. difficile has been negative Stress-induced cardiomyopathy as per records, patient on dry side hx CAD as per records Hypertension, slight elevated Hypothyroidism, euthyroid as of recent outpatient TSH from 3 months ago Prediabetes, hemoglobin A1c of 6 this month DVT prophylaxis with Lovenox subcu Full code Text document was generated using [employer] voice recognition software. It may contain grammatical or spelling errors. Kindly contact undersigned for clarification of any documentation item in question. Admission and Anticipated Discharge Date Admission Date: October 14, 2023 Subjective 10/15/2023 The patient was seen and examined in medical telemetry unit She has been feeling much better and has minimal cough but no shortness of breath at rest She has been saturating normally on room air Denies any chest pain and her palpitation and does not have any fever and chills Review of Systems Review of Systems: All systems reviewed and are unremarkable except as noted below Respiratory: No respiratory distress at rest Physical Exam Physical Exam: Lying in bed without any acute distress Constitutional: well developed, well nourished and + obese; not ill appearing Eyes: PERRL, conjunctivae normal, anicteric sclerae ENMT: external ear and nose normal, oropharynx normal Neck: trachea midline, no thyromegaly Respiratory: no respiratory distress Auscultation: lungs clear to auscultation bilaterally and + diminished lung sounds Cardiovascular: Rate/Rhythm: regular rate and regular rhythm; not tachycardic Heart Sounds: normal S1 and normal S2; no murmur Extremities: + edema (Trace edema bilaterally) Gastrointestinal (Abdomen): Inspection/Auscultation: normal bowel sounds; abdomen not distended Percussion/Palpation: abdomen soft; abdomen nontender Musculoskeletal: No acute arthritis involving any of the joint Neurologic: normal touch/pain/proprioception and moves all extremities; no focal motor deficits Psychiatric: A+Ox3, euthymic affect Lymphatic: no cervical or axillary lymphadenopathy Results & Data Results & Data Vital Signs (Past 12 Hours) Vital Signs Temp Pulse Pulse Pulse Pulse Pulse Resp 10/15/23 11:31 36.6 C 83 16 10/15/23 11:09 85 18 10/15/23 10:45 85 88 10/15/23 08:06 85 10/15/23 07:51 37.0 C 92 H 16 10/15/23 07:35 10/15/23 06:45 81 16 10/15/23 05:50 82 10/15/23 03:57 36.8 C 81 18 Resp Resp BP Pulse Ox Pulse Ox Pulse Ox O2 Del Method 10/15/23 11:31 118/72 92 Room Air 10/15/23 11:09 91 Room Air 10/15/23 10:45 18 18 91 93 10/15/23 08:06 10/15/23 07:51 131/74 91 Room Air 10/15/23 07:35 Room Air 10/15/23 06:45 91 Room Air 10/15/23 05:50 10/15/23 03:57 145/79 H 91 Nasal Cannula O2 Flow Rate 10/15/23 11:31 10/15/23 11:09 10/15/23 10:45 10/15/23 08:06 10/15/23 07:51 10/15/23 07:35 10/15/23 06:45 10/15/23 05:50 10/15/23 03:57 2 Laboratory Results Short CBC 10/15/23 Range/Units 07:06 WBC 9.54 (4.8-10.8) K/ul Hgb 11.7 L (12.0-16.0) g/dl Hct 36.9 L (37.0-47.0) % Plt Count 352 (130-400) K/uL BMP 10/15/23 07:06 Sodium 139 Potassium 4.0 Chloride 104 Carbon Dioxide 29 BUN 7 Creatinine 0.73 Glucose 111 H Calcium 9.0 Medications Administered Current Inpatient Medications Acetaminophen (Acetaminophen 325 Mg Tab) 650 mg PO Q4H PRN PRN Reason: Pain or Fever Stop: 11/13/23 04:53 Last Admin: 10/15/23 09:14 Dose: 650 mg Aspirin (Aspirin 81 Mg Ectab) 81 mg PO QAM [facility] Stop: 11/13/23 08:59 Last Admin: 10/15/23 09:13 Dose: 81 mg Benzonatate (Benzonatate 100 Mg Capsule) 100 mg PO TID PRN PRN Reason: Cough Stop: 11/13/23 06:30 Last Admin: 10/15/23 09:15 Dose: 100 mg Cefdinir (Cefdinir 300 Mg Cap) 300 mg PO BID [facility]; Protocol Stop: 10/21/23 08:59 Last Admin: 10/15/23 09:13 Dose: 300 mg Doxycycline Hyclate (Doxycycline Hyclate 100 Mg Cap) 100 mg PO BID [facility] Stop: 10/21/23 08:59 Last Admin: 10/15/23 09:13 Dose: 100 mg Enoxaparin Sodium (Enoxaparin Inj 40 Mg/0.4 Ml Syr) 40 [facility] [place]: 11/13/23 08:59 Last Admin: 10/15/23 09:13 Dose: 40 mg Guaifenesin (Guaifenesin 600 Mg Tabcr) 600 mg PO Q12 [facility] Stop: 11/13/23 02:39 Last Admin: 10/15/23 09:13 Dose: 600 mg Promethazine HCl 12.5 mg/ (Sodium Chloride) 50.5 mls @ 202 mls/hr IV Q6H PRN PRN Reason: Nausea And Vomiting Stop: 11/13/23 02:38 Ipratropium [place] (Ipratropium [place] Neb Soln 0.02% 0.5mg/2.5ml Vial) 0.5 mg INH QIDR [facility] Stop: 11/13/23 07:29 Last Admin: 10/15/23 10:53 Dose: 0.5 mg Levalbuterol HCl (Levalbuterol 1.25 Mg/3 Ml Neb) 1.25 mg NEB QIDR [facility] Stop: 11/13/23 07:29 Last Admin: 10/15/23 10:52 Dose: 1.25 mg Levothyroxine Sodium (Levothyroxine Sodium 112 Mcg Tablet) 112 mcg PO DAILYBB [facility] Stop: 11/13/23 06:29 Last Admin: 10/15/23 05:57 Dose: 112 mcg Lorazepam (Lorazepam 0.5 Mg Tab) 0.5 mg PO TID PRN PRN Reason: Anxiety Stop: 11/13/23 02:38 Metoprolol Tartrate (Metoprolol Tartrate 25 Mg Tab) 25 mg PO BID [facility] Stop: 11/13/23 08:59 Last Admin: 10/15/23 09:13 Dose: 25 mg Tramadol HCl (Tramadol Hcl 50 Mg Tablet) 25 - 50 mg PO Q4H PRN PRN Reason: Pain Stop: 11/13/23 02:38
[2023-10-15 15:57] VITALS: PULSE 81; RESP 18; O2SAT 91
--- NOTE | 2023-10-16 07:47 | Discharge Summary ---
Date of Service October 16, 2023 Admission HPI Per Admitting Provider History obtained from patient and records. Medical history significant for stress-induced cardiomyopathy as per records (EF 50 to 54%, TTE 2017), CAD, hypertension, hyperlipidemia, GERD, prediabetes, hypothyroidism. Recent admission October 10 to 2023 for respiratory failure secondary to community-acquired pneumonia. CTA chest showed bilateral diffuse groundglass opacities. No PE. Patient initially required oxygen but was on room air at time of discharge. Patient discharged on cefdinir and doxycycline course. Prediabetes found on blood work with hemoglobin A1c of 6 noted. Yesterday, patient noted worsening dry cough symptoms with shortness of breath and chest heaviness. Denies aspiration. Denies weight gain. Watery loose stools without abdominal pain. Patient returned to ER for evaluation. Lowest O2 sats of 80s documented during ER stay. Patient received neb treatment at the ER. 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 Per Admitting Provider Physical Exam: GENERAL: Slightly uncomfortable, obese, no respiratory distress SKIN: Normal color, warm HEENT: [place] palpebral conjunctivae, no ptosis, dry buccal mucosa, nasal cannula in place NECK : Supple, no tenderness CHEST : Decreased breath sounds, no tenderness HEART : RRR, no obvious murmurs ABDOMEN: Some distention, nontender EXTREMITIES : no LE swelling, no LE tenderness, no other conspicuous deformities noted NEUROLOGIC : Coherent, no facial asymmetry, no other gross focality Principal Diagnosis Community-acquired pneumonia, respiratory failure-improved, no oxygen needed Discharge Exam Lying in bed without any acute distress Constitutional well developed, well nourished and + obese; not ill appearing Eyes PERRL, conjunctivae normal, anicteric sclerae ENMT external ear and nose normal, oropharynx normal Neck trachea midline, no thyromegaly Respiratory no respiratory distress Auscultation: lungs clear to auscultation bilaterally and + diminished lung sounds Cardiovascular Rate/Rhythm: regular rate and regular rhythm; not tachycardic Heart Sounds: normal S1 and normal S2; no murmur Extremities: + edema (Trace edema bilaterally) Gastrointestinal (Abdomen) Inspection/Auscultation: normal bowel sounds; abdomen not distended Percussion/Palpation: abdomen soft; abdomen nontender Neurologic normal touch/pain/proprioception and moves all extremities; no focal motor deficits Psychiatric A+Ox3, euthymic affect Lymphatic no cervical or axillary lymphadenopathy Discharge Data Allergies Allergy/AdvReac Type Severity Reaction Status Date / Time clindamycin Allergy Intermediate rash Verified 10/09/23 20:16 amoxicillin Allergy Rash Verified 10/09/23 20:16 Consultations 10/14/23 01:54 ED Decision to Admit Stat Ordered Studies 10/14/23 02:35 CT angio chest PE protocol Stat Hospital Course (1) Acute hypoxemic respiratory failure: Recent bout of community-acquired pneumonia, ongoing cefdinir and doxycycline Rx Condition get worse with increasing shortness of breath and wheezing that is the reason patient was readmitted She has been requiring oxygen since admission but that was taken off earlier this morning Has been started on same medications as cefdinir and doxycycline Her white count was elevated at 38,000 but that has gone down to normal this morning She has been feeling much better and has minimal cough but no other symptoms Her blood cultures have been negative She is mentally and physically ready to be discharged Will get her to a stable O2 saturation test prior to discharge Increasing shortness of breath secondary to above CTA did not show any pulmonary embolism Troponin elevation secondary to above Second set of troponin came down to be normal Patient denies any cardiac symptoms Diarrhea rule out C. difficile given antibiotic course C. difficile has been negative Stress-induced cardiomyopathy as per records, patient on dry side hx CAD as per records Hypertension, slight elevated Hypothyroidism, euthyroid as of recent outpatient TSH from 3 months ago Prediabetes, hemoglobin A1c of 6 this month DVT prophylaxis with Lovenox subcu Full code Text document was generated using [employer] voice recognition software. It may contain grammatical or spelling errors. Kindly contact undersigned for clarification of any documentation item in question. Total Time Total Time Spent Total Time Spent (In Minutes): 35 minutes Discharge Plan Discharge Items Patient Disposition: Home - Self-Care Reason For Visit: RESP FAILURE Discharge Diagnosis: Community-acquired pneumonia, respiratory failure-improved, no oxygen needed Condition on Discharge: Good Activity: Resume your previous activity Non-emergency contact: Primary Care Provider Call non-emergency contact if: you have any medication questions and your symptoms worsen Follow-up/Referrals: Chaparro Foster, [Primary Care Provider] - (Your doctor's office will give you a call with an appointment within 7 days) Diet: Heart Healthy Addtl Attending Provider Instructions: Please take precautions to avoid falls Finish the course of antibiotic Try to drink more fluid Please keep appointment with your healthcare provider Ypu can try some [id number] cough medicine Pending Studies at Discharge: No Stand-Alone Forms: My [facility], Smoking Cessation Medications and DC Order Prescriptions: Continued aspirin 81 mg Tablet,Delayed Release (Dr/Ec) 81 mg PO QAM levothyroxine 112 mcg tablet 112 mcg PO QAM Cbd Oil 8 drp PO BID Rx Instructions: Patient is not sure of the strength metoprolol tartrate 50 mg tablet 25 mg PO BID Qty: 0 0RF quercetin 500 mg Capsule 500 mg PO DAILY biotin 10,000 mcg Capsule 1 mcg PO DAILY doxycycline hyclate 100 mg Capsule 100 mg PO BID 5 Days Qty: 10 0RF cefdinir 300 mg capsule 300 mg PO BID 5 Days Qty: 10 0RF cholecalciferol (vitamin D3) [Vitamin D3] 50 mcg (2,000 unit) Tablet 50 mcg PO DAILY turmeric 400 mg Capsule 400 mg PO DAILY ascorbic acid (vitamin C) [Vitamin C] 250 mg Tablet 250 mg PO QAM zinc 50 mg Capsule 50 mg PO DAILY Discharge Orders: Discharge Order (Routine); Ordered 10/15/23 Ordered By: Celi Delaney/Other Patient Handouts: Preventing Pneumonia, Infec Common Resp Prevention Admission Data Admit Date/Time: 10/14/23 02:37 Attending Provider: Celi Martinez Admit Provider: Waylon Williamson Primary Care Provider: Chaparro Foster Other Providers: Waylon Williamson Other Interventions: Discharge Summary Assessment (RN) Last Done: 10/15/23 16:38
== END 2023-10-15 17:56 | disposition home or self-care (01) | DRG 193 ==
LOC: ED 23:32 → EDINP 10-14 02:37 → 2N 10-14 04:54
DX: I25.10 Atherosclerotic heart disease of native coronary artery without angina pectoris; Z79.890 Hormone replacement therapy; I10 Essential (primary) hypertension; Z79.899 Other long term (current) drug therapy; Z68.38 Body mass index [BMI] 38.0-38.9, adult; Z88.0 Allergy status to penicillin; Z88.1 Allergy status to other antibiotic agents; R79.89 Other specified abnormal findings of blood chemistry; J96.01 Acute respiratory failure with hypoxia; E66.9 Obesity, unspecified; Z79.82 Long term (current) use of aspirin; R19.7 Diarrhea, unspecified; R73.03 Prediabetes; Z11.52 Encounter for screening for COVID-19; I51.81 Takotsubo syndrome; E03.9 Hypothyroidism, unspecified; J18.9 Pneumonia, unspecified organism